=== PATIENT | female | born 1955 | race Caucasian/White ===

== ENCOUNTER 2023-11-23 17:56 | Inpatient (IN) | payer BC, SELFPAY ==
[2023-11-23] VITALS (16 sets, daily range): BP systolic 136–179; BP diastolic 73–104; BMI 19.8
--- NOTE | 2023-11-23 15:06 | ED.GENMED ---
History of Present Illness
General
Chief Complaint: Chest Pain
Source: patient
Exam Limitations: none
Time Seen by Provider: 11/23/23 15:05
Nursing documentation reviewed up to this point in time: agreed with
Travel History
Have you had any contact with someone who has COVID-19?: No
Do you have any symptoms of coronavirus? Fever > 100 degrees, chills, cough, shortness of breath, sore throat, loss of taste or smell, muscle aches, or headache?: No
Past History
Past History
ED Past Medical History: None
ED Past Surgical History: None
Social History
Tobacco: Non-smoker
Alcohol: None
Living: with family
Employment: Employed
Family History
Family History: Hypertension
Course
Orders/Labs/Results
Orders:
Orders
11/23/23 14:59
ECG [Electrocardiogram (*1)] Urgent
Reason for Study: Chest Pain
EKG- Treatment ONCE
11/23/23 15:00
Complete Blood Count/With Diff Urgent
Comprehensive Metabolic Panel Urgent
Troponin I Urgent
*EKG
EKG Intrepretation Date: 11/23/23
Interpretation: abnormal
Rate: tachycardiac
Rhythm: sinus
Neptune: normal axis
Interval: normal interval
QRS Pattern: normal QRS
Ischemia: no ischemia
ED Attending Note
-
Portions of this chart may have been created with voice recognition software.� Occasional wrong word or��sound alike� substitutions may have occurred due to the inherent limitations of voice recognition software.
Discharge Plan
Departure
Prescriptions:
No Action
clindamycin HCl 300 MG capsule
300 mg PO QID Qty: 28 0RF
oxycodone-acetaminophen [Endocet] 1 EACH tablet
1 ea PO QIDPRN PRN (Reason: pain) Qty: 13 0RF
Discharge Date and Time
Print Language: MEXICAN
[2023-11-23] MEDS: LOW STRENGTH ASPIRIN 324 MG PO (15:15)
[2023-11-23] MEDS: NITROSTAT (SUBLINGUAL) 0.400000000000000022 MG SL ×2 (15:16→15:21)
[2023-11-23] MEDS: ZOFRAN 4 MG IV (15:22)
--- NOTE | 2023-11-23 15:25 | ED.GENMED ---
History of Present Illness
General
Chief Complaint: Chest Pain
Source: patient
Exam Limitations: none
Time Seen by Provider: 11/23/23 15:05
Nursing documentation reviewed up to this point in time: agreed with
Travel History
Have you had any contact with someone who has COVID-19?: No
Do you have any symptoms of coronavirus? Fever > 100 degrees, chills, cough, shortness of breath, sore throat, loss of taste or smell, muscle aches, or headache?: No
History of Present Illness
History of Present Illness:
Patient without any significant past medical history, presents to ED secondary to intermittent chest pain over the past 2 weeks. Chest pain described as gas-like sensation with radiation to shoulder. Denies shortness of breath. Denies dizziness.
Denies nausea or vomiting. Denies diaphoresis. Patient states that her symptoms have been intermittent, since the passing of her family member. Denies vomiting or diarrhea. Denies fever or chills. Denies coughing. No recent travel. Denies
back pain. Denies family history of heart disease. Patient is a daily smoker however. Patient states that she has not seen any physician in some time.
Past History
Past History
ED Past Medical History: None
ED Past Surgical History: None
Social History
Tobacco: Non-smoker
Alcohol: None
Living: with family
Employment: Employed
Family History
Family History: Hypertension
Review of Systems
Review of Systems
Allergies reviewed?: Yes
All Other Systems: ROS reviewed and negative except as documented in HPI and ROS
Constitutional: Reports no symptoms
EENT: Reports no symptoms
Respiratory: Reports no symptoms; Denies trouble breathing
Cardiac: Reports chest pain
ABD/GI: Reports nausea
: Reports no symptoms
Musculoskeletal: Reports no symptoms
Skin: Reports no symptoms
Neurological: Reports no symptoms
Phy Exam
Physical Exam
Physical Exam:
Physical Exam
General: mild distress, not acutely ill. afebrile
Head: nc/at. eomi
Neck: supple. no meningeal signs.
Heart: tachycardic, no murmur. equal radial pulses.
Lungs: no acute respiratory distress. clear bilaterally
Abdomen: normal bowel sounds. not tender.
Neuro: alert and oriented. no focal neurological deficits
Skin: no rash
Psychiatric: well kept. interactive and cooperative
Extremities: no edema. no calf tenderness.
Scores
Heart Score for Chest Pain Patients
STEMI patient?: No
History: Moderately Suspicious
ECG: Normal
Age: >/= 65 years
Risk Factors: 1 or 2 Risk Factors
Troponin: </= Normal Limit
Heart Score for Chest Pain Patients: 4
Heart Score Risk: 20.3% MACE over next 6 weeks
Course
Orders/Labs/Results
Orders:
Orders
11/23/23 14:59
ECG [Electrocardiogram (*1)] Urgent
Reason for Study: Chest Pain
EKG- Treatment ONCE
11/23/23 Dinner
1800 calorie (15 carb) Diabetic
At Your Request: Full Participation
Does patient need a safe tray?: No
11/23/23 15:14
Aspirin Chewable [Low Strength Aspirin] 324 mg PO NOW STA
11/23/23 15:16
Nitroglycerin Sublingual [Nitrostat (Sublingual)] 0.4 mg SL NOW STA
11/23/23 15:18
Ondansetron Injectable [Zofran] 4 mg .ROUTE .STK-MED ONE
CR Chest Portable - 1 View Urgent
Comment:
Reason For Exam: chest pain
Reason Study Needs to be Portable: Patient Unstable
11/23/23 15:19
Echo 2D MMode Color/Doppler Stat
Reason for Study: CP
11/23/23 15:20
Nitroglycerin Sublingual [Nitrostat (Sublingual)] 0.4 mg SL NOW STA
11/23/23 15:21
Ondansetron Injectable [Zofran] 4 mg IV NOW STA
11/23/23 15:23
Complete Blood Count/With Diff Urgent
Comprehensive Metabolic Panel Urgent
Glycohemoglobin (HgbA1c) Urgent
Magnesium Urgent
TSH Urgent
Troponin I Urgent
11/23/23 15:33
PT/INR [Prothrombin Time] Urgent
PTT Stat
11/23/23 15:45
Nitroglycerin 100 mg/250 ml [Nitroglycerin Premix] 100 mg in 250 ml IV PER PROTOCOL
Initial dose in mcg/min, then titrate:: 5
Titrate to keep:: Chest Pain Free
Titrate by mcg/min:: 5 mcg/min, may increase by 10 mcg/min if dose > 20 mcg/min
Frequency of titrations (minutes):: every 3-5 minutes
Maximum dose in mcg/min:: 200
Begin to taper infusion when:: Remained at goal for 2hrs
Taper by mcg/min:: 5 mcg/min
Frequency of taper (minutes) if patient maintains goal:: 30
Taper to off?: Yes
If infusion off & no longer maintaining goal:: Contact Provider
11/23/23 15:46
Metoprolol [Lopressor] 5 mg IV NOW STA
11/23/23 15:47
Heparin 3,100 units IV NOW STA
11/23/23 16:01
Add On- LAB Urgent
Tests Added?: Hemoglobin A1C
11/23/23 16:37
Acetaminophen [Tylenol] 650 mg PO Q4HPRN PRN
Activity As Directed
Activity Level: Out of Bed- Ad [place]
Activity Frequency: Ad [place]
District Attorney Procedure As Directed
Cardiac Cath Procedure: cardiac catheterization
Notify MD As Directed
Notify physician if: immediately for chest pain or bleeding from access site(s)
Radial Artery Hemostasis Method As Directed
Instructions:: 3 mL out at 1 hour post placement of band
3 mL out at 1 1/2 hours post placement of band
3 mL out at 2 hours post placement of band
Off at 2 1/2 hours post placement of band
If any oozing or hemotoma occurs:: re-inflate band and call provider
Site Checks As Directed
Check access site for bleeding/hematoma: Yes
Comment: on arrival, Q15min x4, Q30min x2, Q1 hr x2, Q2 hr x2, Q4 hr or per
protocol
Vascular Checks As Directed
Location: distal to access site - pulse check
Frequency: Other
Comment: on arrival, Q15min x4, Q30min x2, Q1 hr x2, Q2 hr x2, Q4 hr or per protocol
Vital Signs As Directed
Frequency: Other
Additional Instructions:: on arrival, Q15min x4, Q30min x2, Q1 hr x2, Q2 hr x2, then Q4 hr or per unit
protocol
11/23/23 16:39
Cardiothoracic Surgery Consult Routine
Consulting Provider: Connor Alarcon
Was physician already notified: Yes
Reason for Consult: CABG eval
11/23/23 16:43
DIETARY CONSULT Routine
Reason for Consult: newly diabetic/heart healthy
Diabetes Education Consult Routine
Reason for Consult: Other
Newly Diagnosed?: Yes
11/23/23 16:45
0.9% Sodium Chloride 1000 ml [Nss] 1,000 ml IV PER PROTOCOL
Infusion rate in mL/kg/hr:: 1.5
Infusion rate in mL/hr:: 78
Duration of infusion (hours):: 3
Heparin Protocol- PTT Orders As Directed
PTT per Heparin protocol: -Obtain CBC and baseline PTT - if not already collected.
-Obtain PTT 6 hours from start of infusion. Then, every 6 hours until 2 consecutive
PTT's are therapeutic. Then, PTT Daily.
-With each rate change, obtain PTT every 6 hours until 2 consecutive PTT's are
therapeutic. Then, PTT Daily.
Notify MD As Directed
Notify physician if: PTT is greater than or equal to 200.
11/23/23 17:00
Nicotine [Nicoderm Transdermal] 21 mg TRANSDERM DAILY
11/23/23 17:11
Admit/Transfer Patient As Directed
Co-Sign Provider:
Level of Care: Inpatient admission
Assign to:: IVU
Physician / Group: isidra
Diagnosis: STEMI
Reason for Hospitalization: STEMI
Expected length of stay greater than two midnights?: Yes
ELOS- Estimated Length of Stay in days: 2
I certify the patient meets the requirements for IP care: Yes
Code Status As Directed
Resuscitation Status: Full Code
11/23/23 17:26
Magnesium Oxide 500 mg PO NOW STA
11/23/23 18:00
Atorvastatin [Lipitor] 40 mg PO QPM
Atorvastatin [Lipitor] 40 mg PO QPM
Atorvastatin [Lipitor] 80 mg PO QPM
11/23/23 18:41
Dextrose 50%-Water [Dextrose 50% Syringe] 12.5 grams IV [id number] PRN
Glucagon [GlucaGen] 1 mg IM PRN PRN
11/23/23 18:41
Activity As Directed
Activity Level: As Tolerated
Bedside Glucose Monitoring As Directed
Frequency: AC&HS
Additional Instructions:: Change to q6h if pt on TPN, tube feeding or not eating
Vital Signs As Directed
Frequency: Per unit guidelines
11/23/23 20:00
Heparin 60620 Units/250 ml 25,000 units in 250 ml IV PER PROTOCOL
Weight to be used for heparin protocol in kilograms (kg):: 52.3
Protocol:: Cardiac Tx/Acute Coronary
PTT Goal Range to be used:: PTT 73 to 111 seconds
Order type:: Initial
INITIAL Infusion Dose (UNITS/KG/hr) & then follow protocol:: 12 units/kg/hr
Infusion Dose in UNITS/hr & then follow protocol (UNITS/hr):: 650
INFUSION RATE in mL/hr & then follow protocol (mL/hr):: 6.5
PTT less than or equal to 64 seconds:: Increase rate by 200 units/hr (+ 2 mL/hr)
PTT 64.1 to 72.9 seconds:: Increase rate by 100 units/hr (+ 1 mL/hr)
PTT 73 to 111 seconds:: Target Range. No change in rate.
PTT 111.1 to 130.9 seconds:: Decrease rate by 100 units/hr (- 1 mL/hr)
PTT 131 to 199.9 seconds:: HOLD for 1 hr. Then decrease rate by 200 units/hr (- 2 mL/hr)
PTT greater than or equal to 200 seconds:: HOLD for 2 hrs & Notify Provider. Then decrease by 200 units/hr (-
2 mL/hr)
Lab follow-up:: Each change, PTT q6h until 2 consecutive are therapeutic. Then PTT
daily.
11/23/23 20:58
Troponin I Q6H
11/24/23 03:00
Troponin I Q6H
11/24/23 06:00
Electrocardiogram (*1) IN AM
Reason for Study: CAD
Comment: CBC
Basic Metabolic Panel IN AM
Cardiovascular Evaluation IN AM
Complete Blood Count/No Diff IN AM
Glycohemoglobin (HgbA1c) IN AM
Magnesium IN AM
11/24/23 07:30
Insulin Aspart Corrective Low [Novolog Flexpen-Low Resistance] See Protocol SC AC
11/24/23 08:00
Aspirin Low Dose EC [Aspir Low (Enteric Coated)] 81 mg PO DAILY
Aspirin Low Dose EC [Aspir Low (Enteric Coated)] 81 mg PO DAILY
11/24/23 09:00
Troponin I Q6H
11/25/23 06:00
Complete Blood Count/No Diff Q2D
Comment: Notify MD if platelet count is <130,000 or decreases by 50% from baseline
11/27/23 06:00
Complete Blood Count/No Diff Q2D
Comment: Notify MD if platelet count is <130,000 or decreases by 50% from baseline
11/29/23 06:00
Complete Blood Count/No Diff Q2D
Comment: Notify MD if platelet count is <130,000 or decreases by 50% from baseline
12/01/23 06:00
Complete Blood Count/No Diff Q2D
Comment: Notify MD if platelet count is <130,000 or decreases by 50% from baseline
12/03/23 06:00
Complete Blood Count/No Diff Q2D
Comment: Notify MD if platelet count is <130,000 or decreases by 50% from baseline
12/05/23 06:00
Complete Blood Count/No Diff Q2D
Comment: Notify MD if platelet count is <130,000 or decreases by 50% from baseline
12/07/23 06:00
Complete Blood Count/No Diff Q2D
Comment: Notify MD if platelet count is <130,000 or decreases by 50% from baseline
12/09/23 06:00
Complete Blood Count/No Diff Q2D
Comment: Notify MD if platelet count is <130,000 or decreases by 50% from baseline
Abnormal Lab Results
11/23/23 11/23/23 11/23/23
15:23 16:26 16:35
WBC 14.9 H 10^3/uL
(4.8-10.8)
Plt Count 620 H 10^3/uL
(130-400)
Abs Immat Gran (auto) 0.1 H 10^3/uL
(0-0.05)
Absolute Neuts (auto) 12.1 H 10^3/uL
(1.4-6.5)
Absolute Monos (auto) 1.0 H 10^3/uL
(0.1-0.6)
Immature Gran % 0.6 H %
(0-0.5)
Neutrophils % 81.0 H %
(42.2-75.2)
Lymphocytes % 10.9 L %
(20.5-51.1)
Sodium 128 L mmol/L
(135-145)
Chloride 94 L mmol/L
(98-107)
Glucose 315 H mg/dl
(70-99)
Calcium 10.4 H mg/dl
(8.4-10.2)
Magnesium 1.4 L mg/dl
(1.6-2.3)
TSH 0.46 L uIU/ml
(0.47-4.68)
POC ACT Low Range 165 H Seconds 219 H Seconds
(116-155) (116-155)
11/23/23 15:23
11/23/23 15:23
Vital Signs
Initial and Last Documented VS:
Initial Vital Signs
BP
168/92
11/23/23 15:17
Last Documented Vital Signs
Temp Pulse Resp BP Pulse Ox
98.2 F 81 20 152/86 96
11/23/23 22:17 11/23/23 20:00 11/23/23 22:17 11/23/23 20:00 11/23/23 22:17
MDM/Problems Addressed
MDM/Problems Addressed:
Initial EKG, with nonspecific ST changes, discussed with cytology laboratory manager attending () - will order STAT Echo along with cardiology () evaluation at bedside.
Aspirin given, along with NTG
CP improved with NTG SL. Will start Nitroglycerin gtt.
Bedside echo with wall motion abnormalities.
Pt evaluated by (cardiology) who spoke with animal damage control agent attending () - will proceed to GEOSPATIAL ENGINEER. Medications given, per protocol, excluding Brillinta which will be deferred to GEOSPATIAL ENGINEER team.
Critical care statement: A total of 40 minutes of critical care time was provided for this patient. This includes management of unstable vital signs, evaluation of the patient at bedside, reviewing the patient's pertinent medical records, discussion
with consultants, review of old EKGs and review of pertinent medical records. This time with separate from time utilized to perform the aforementioned documented procedures
*Critical Care Note
Total Time (30-74mins, 75-104mins- exclusive of procedures): 40 min
ED Attending Note
-
Portions of this chart may have been created with voice recognition software.� Occasional wrong word or��sound alike� substitutions may have occurred due to the inherent limitations of voice recognition software.
Discharge Plan
Departure
Patient Disposition: GEOSPATIAL ENGINEER
Date of Disposition: 11/23/23
Time of Disposition: 15:48
Admit to: oven laborer
Presentation/result/management discussed w/ accepting MD/DO: Hospitalist
Discharge Problem:
Chest pain, Abnormal ECG
Interventions
Interventions:
*Risk Screen - Suicide Last Done: 11/23/23 15:27
*General Assessment Last Done: 11/23/23 15:27
*Neglect/Abuse Screening Last Done: 11/23/23 16:15
ED- Fall Risk Assessment Last Done: 11/23/23 15:27
*Nursing Disposition Last Done: 11/23/23 16:29
ED- Cardiac Assessment Last Done: 11/23/23 15:27
Discharge Date and Time
Discharge Date/Time: 11/23/23 16:25
--- NOTE | 2023-11-23 15:29 | CON.CAR ---
Addendum entered and electronically signed by Victoriano Cotto MD 11/23/23 17:10:
I saw and examined the patient.
The TELEPHONE ANSWERING SERVICE OPERATOR's note was reviewed and I agree with the note.
Comment: 68-year-old female who presented to the emergency department the chief complaint of chest pain. ECG and TTE findings were concerning for acute infarction. She was taken urgently for coronary angiography and multi-vessel CAD was seen. CTS
has been consulted.
- aspirin, statin, TTE done, heparin for 48 hrs
- lipid profile tomorrow AM fasting
- blood pressure control as needed
- CTS consult
Original Note:
Consultation
Consultation Request
Date/Time Consultation Requested: 11/23/2023 15:15
Date/Time Consultation Performed: 11/23/23 15:15
Requesting Provider: Dr. Johnston
Performing Provider: MARIJA Villanueva for Dr. Cotto
Reason for Consultation: Abnormal EKG, chest pain
Medical History
-
Chief Complaint: Chest pain
History of Present Illness:
Pamela De La Vega is a 68-year-old female who presented to the emergency department the chief complaint of chest pain. She states her chest pain started approximately 2 weeks ago when her father . But at that time it was mild and intermittent and
she believed to be related to stress. Today, she had sudden acute onset of chest pain at approximately 2 PM. She has received no relief. It feels like a pressure in her midsternal anterior chest and radiates into her shoulders. She endorses
associated nausea and vomiting prior to arrival. She briefly had an episode of diaphoresis. She appears flushed on exam. EKG with inferior STEMI. She was given ASA 324 mg, heparin bolus, intravenous Lopressor, and intravenous nitroglycerin. At
its worst it was 10/10 in severity prior to arrival. After nitroglycerin chest pain now 4/10 in severity. Stat TTE being performed.
Mrs. Lyman does not regularly seek medical care. She does not recall the last time she saw her PCP. She denies all significant past medical history other than smoking.
Her is at the bedside and he has been updated on the plan of care.
Past Medical History
Past Medical History: None
Social History
Tobacco: Smoker
Alcohol: None
Personal:
Living: With Family
Family History
Family History: Reviewed & Not Pertinent (Denies early CAD & SCD.)
Allergies / Home Medications
Allergy/AdvReac Type Severity Reaction Status Date / Time
Sulfa (Sulfonamide Allergy Unknown Verified 11/23/23 15:14
Antibiotics)
�Medication �Instructions �Recorded �Confirmed �Type
clindamycin HCl 300 mg capsule 300 mg PO QID ##28 05/15/13 Rx
oxycodone-acetaminophen 5 mg-325 1 ea PO QIDPRN PRN pain #13 tabs 05/15/13 Rx
mg tablet (Endocet)
Review of Systems
-
History Source: Patient
All other systems: Negative unless noted
Cardiac: Chest Pain and Diaphoresis
Abdomen/GI: Nausea and Vomiting
Physical Exam
Vital Signs
Temp Pulse Resp BP Pulse Ox
98.4 F 110 23 179/104 94
11/23/23 15:18 11/23/23 15:19 11/23/23 15:19 11/23/23 15:18 11/23/23 15:19
Physical Exam
General: Well Developed, Well Nourished and Comfortable
HEENT: Normocephalic, Anicteric and Moist Mucous Membranes
Cardiac: S1/S2 and Regular Rhythm
Breast: Deferred by me
GI: Soft, Non Tender, Non Distended and Normal Bowel Sounds
Rectal: Deferred by Provider
Genito-urinary: No Costovertebral Tender
Musculoskeletal: No Clubbing, No Cyanosis and No Edema
Skin: Warm, Dry and Other (flushed)
Neuro: AO x 3
Psych: Calm
Impression / Plan
-
STEMI
-EKG with inferior STEMI
-ASA 325mg x 1 now then 81mg daily
-Heparin bolus
-Lopressor 5mg IV x 1 now, start nitro gtt
-STAT TTE
-Fasting lipid panel in am, start atorvastatin 40mg QPM
-Hgba1c in am
Hyponatremia
Hyperglycemia, glucose 315, Hgba1c in am
Leukocytosis, perhaps reactive, per primary
Current smoker, full cessation recommended
Data Reviewed
-
EKG: Report Reviewed by me (Sinus tachycardia, significant inferior ST abnormality [STEMI], rate 114)
Labs: Labs Reviewed by me
Old Records: Reviewed
[2023-11-23 15:44] LABS: % Basophils 0.7 % (0-2); % Eosinophils 0.2 % (0-6); % Immature Granulocytes 0.6 % (0-0.5); % Lymphocytes 10.9 % (20.5-51.1); % Monocytes 6.6 % (1.7-9.3); Absolute Basophils 0.1 10^3/uL (0-0.2); Absolute Immature Granulocytes 0.1 10^3/uL (0-0.05); Absolute Lymphocytes 1.6 10^3/uL (1.2-3.4); Absolute Neutrophils 12.1 10^3/uL (1.4-6.5); Hematocrit 37.8 % (37.0-47.0); Hemoglobin 12.6 g/dL (12.0-16.0); Mean Corp Hgb Conc. 33.3 g/dL (33.0-37.0); Mean Corpuscular Hgb 28.9 pg (27.0-31.0); Mean Corpuscular Volume 86.7 fL (81.0-99.0); Nucleated Red Blood Cells % 0 %; Red Blood Cell Count 4.36 10^6/uL (4.20-5.40); Red Cell Dist. Width 12.6 % (11.5-14.5); White Blood Cell Count 14.9 10^3/uL (4.8-10.8)
[2023-11-23] MEDS: LOPRESSOR 5 MG IV (15:49)
[2023-11-23] MEDS: HEPARIN 3100 UNITS IV (15:52)
[2023-11-23 15:56] LABS: ALT (SGPT) < 10 U/L (0-35); AST (SGOT) 14 U/L (14-36); Albumin 4.6 g/dl (3.5-5.0); Alkaline Phosphatase 107 U/L (38-126); Blood Urea Nitrogen 8 mg/dl (7-17); Calcium 10.4 mg/dl (8.4-10.2); Carbon Dioxide 24 mmol/L (22-30); Chloride 94 mmol/L (98-107); Estimated Creatinine Clearance 73 ml/min; Glucose 315 mg/dl (70-99); Magnesium 1.4 mg/dl (1.6-2.3); Potassium 4.4 mmol/L (3.5-5.1); Sodium 128 mmol/L (135-145); Total Bilirubin 0.3 mg/dl (0.2-1.3); Total Protein 7.4 g/dl (6.3-8.2); eGFR > 60.00
[2023-11-23 16:03] LABS: INR 1.06; PT 13.6 Sec (11.4-14.6)
[2023-11-23 16:04] LABS: APTT 33.4 Sec (23.4-35.0)
[2023-11-23 16:06] LABS: Troponin I 0.033 ng/ml
[2023-11-23 16:10] LABS: Mean Platelet Volume 9.6 fL (7.4-10.4); Platelet Count 620 10^3/uL (130-400)
[2023-11-23 16:26] LABS: TSH 0.46 uIU/ml (0.47-4.68)
[2023-11-23 16:30] LABS: ACT-LR - POC 165 Seconds (116-155)
[2023-11-23 16:42] LABS: ACT-LR - POC 219 Seconds (116-155)
--- NOTE | 2023-11-23 17:03 | ITS.CL.CATH ---
Licensed Physical Therapy Assistant - Catheterization
Cardiac Catheterization
Procedure Report:
LEFT HEART CATHETERIZATION
Date of Procedure: November 23, 2023
Referring: Dr. Victoriano Cotto
PROCEDURES:
1. Left heart catheterization with coronary and single-plane left ventriculography
INDICATION: This is a 68-year-old female who rarely seeks medical attention. She presented to [facility] with a 2-week history of substernal chest pressure and an electrocardiogram concerning for inferior infarct/ischemia. A stat
echocardiogram in the emergency room was notable for anterolateral hypokinesis. Her troponin returned at 0.033 ng/mL in spite of symptoms for 2 weeks. However, given the ECG and echocardiographic findings she is referred for coronary angiography
ACCESS: Right radial artery, 6 [place] sheath
HEMODYNAMICS : (mmHg)
AO (s/d) : 133/72
LV (s/d) : 128/8
LVEDP : 18
CORONARY FINDINGS
DOMINANCE: Right
LEFT MAIN: Minor distal tapering
LEFT ANTERIOR DESCENDING: The LAD arises normally from the left main and runs in the anterior interventricular groove. The LAD is moderately to heavily calcified. The proximal LAD has a 40% stenosis. The mid LAD just before the first diagonal
branch has a 90% stenosis with a 50% stenosis beyond the first diagonal branch. The distal LAD has a 50% stenosis.
CIRCUMFLEX: The circumflex is a moderate caliber nondominant vessel. OM1 arises proximally from the circumflex and is a moderate caliber vessel with a 70% mid stenosis. The OM1 bifurcates distally. OM 2 is small and has a 80% distal stenosis just
before the vessel bifurcates to 2 small daughter branches.
RIGHT CORONARY ARTERY: Diffuse proximal and mid atherosclerotic disease. The distal RCA is occluded in the distal vessel is noted to fill via well-developed [id number] collaterals
VENTRICULOGRAPHY: Left ventriculography was performed in an WILSON projection. The digital single-plane left ventricular ejection fraction is estimated at 45-50% with mild anterolateral hypokinesis
RADIATION SUMMARY: Fluoro Time (min): 3.2, Dose (mGy): 213, DAP (Gy.cm2) : 19.3
Closure Device: TR band
CONCLUSIONS
1. Multivessel coronary disease
2. Probable newly diagnosed diabetes
3. Low normal to mildly reduced LV systolic function
RECOMMENDATIONS
1. Will consult CT surgery to consider CABG
2. High intensity statin. Continue aspirin. IV heparin for 24-48 hours
3. Trend serial troponin levels
Copy to: Dr. Victoriano Cotto
[2023-11-23] MEDS: NSS 234 IV (17:17)
--- NOTE | 2023-11-23 17:19 | HPS.HSE ---
Addendum entered and electronically signed by Marianela Walsh MD 11/23/23 17:26:
Hypomagensemia
-Replete magnesium
Original Note:
Family Physician
-
Family Physician: NO INTERVIEW UNKNOWN
Chief Complaint
-
chest pain
History of Present Illness
68-year-old female with no known medical problems presenting with intermittent chest pain over the past 2 weeks. She states that 2 weeks ago her family member which affected her greatly. Since that time she has been having intermittent
chest pain described as gas-like sensations with radiation to shoulders and nausea/vomiting, diarrhea and abdominal cramping worsened with eating. Denies any sweats or shortness of breath. Denies any fevers or chills or cough. Denies any back
pain. Denies any lower extreme edema.
Patient smokes half a pack of cigarettes a day.
She denies any family history of heart disease.
Medical History
Past Medical History
Past Medical History: Reports None
Past Surgical History: Reports None
Social History
Tobacco: Smoker
Alcohol: None
Drug: None
Family History
Family History: Not pertinent
Allergies / Home Medications
Allergies reflects when Allergies were last updated in [facility].
Home Medications with original date entered in [facility]
Allergy/Medication List:
Allergies
Allergy/AdvReac Type Severity Reaction Status Date / Time
Sulfa (Sulfonamide Allergy Unknown Verified 11/23/23 15:14
Antibiotics)
Home Medications
clindamycin HCl 300 mg capsule 300 mg PO QID ##28 05/15/13
oxycodone-acetaminophen 5 mg-325 mg tablet (Endocet) 1 ea PO QIDPRN PRN pain #13 tabs 05/15/13
Review of Systems
-
History Source: Patient
A 12 point ROS was completed and negative except as noted: Yes
Constitutional: Reports No Symptoms
EENT: Reports No Symptoms
Respiratory: Reports No Symptoms
Cardiac: Reports See HPI
Abdomen/GI: Reports See HPI
: Reports No Symptoms
Musculoskeletal: Reports No Symptoms
Skin: Reports No Symptoms
Neurological: Reports No Symptoms
Endocrine: Reports No Symptoms
Hematologic/Lymphatic: Reports No Symptoms
Psych: Reports No Symptoms
Physical Exam
Vital Signs
Vital Signs
Temp Pulse Resp BP Pulse Ox
98.4 F 96 16 152/78 94
11/23/23 15:18 11/23/23 16:02 11/23/23 16:02 11/23/23 16:03 11/23/23 16:00
Physical Exam
General: Well Developed, Well Nourished and No Apparent Distress
HEENT: NormoCephalic, Moist mucous membranes and Atraumatic
Respiratory: Clear
Cardiac: S1/S2 and Regular Rhythm; No Murmur or Rub
GI: Soft, Non Tender, Non Distended and Normal Bowel Sounds; No Organomegaly
Rectal: Deferred by Provider
Musculoskeletal: No Clubbing, No Cyanosis and No Edema
Skin: No Rash
Neuro: Nonfocal/grossly intact
Laboratory Results
-
11/23/23 15:23
11/23/23 15:23
Laboratory Results
PT 13.6 Sec (11.4-14.6) 11/23/23 15:33
INR 1.06 11/23/23 15:33
APTT 33.4 Sec (23.4-35.0) 11/23/23 15:33
Total Bilirubin 0.3 mg/dl (0.2-1.3) 11/23/23 15:23
AST 14 U/L (14-36) 11/23/23 15:23
ALT < 10 U/L (0-35) 11/23/23 15:23
Alkaline Phosphatase 107 U/L (38-126) 11/23/23 15:23
Troponin I 0.033 ng/ml 11/23/23 15:23
Data Reviewed
-
Lab Data: Labs Reviewed by me
Old Records: Reviewed
Impression/Plan
-
IMPRESSION:
PLAN:
# Inferior STEMI
# Multivessel coronary disease
# Ischemic cardiomyopathy
-Troponin 0.033
-EKG shows sinus tachycardia, ST elevations in leads II, 3, aVF
-Chest x-ray unremarkable
-Echo shows EF of 35 to 40%, hypokinesis
-Heparin drip
-Nitroglycerin drip
-Patient underwent catheterization revealing multivessel coronary artery disease
-Aspirin, statin started
-CT surgery consult
# Hyperglycemia likely undiagnosed diabetes
-Check A1c
-Insulin sliding scale
# Leukocytosis likely reactive
-Continue to monitor
# Pseudohyponatremia secondary to hyperglycemia
-Patient receiving fluids
Active smoker
-Nicotine patch
Full code
DVT prophylaxis�heparin
Diabetic diet
--- NOTE | 2023-11-23 17:25 | CONSULT.CT ---
Consultation
-
Date/Time Consultation Requested: 11/23/23 1800
Date/Time Consultation Performed: 11/23/23 1825
Requesting Provider: Sina DUTTON
Performing Provider: Bradley DUTTON for Dorian BRIONES
Reason for Consultation: CAD
Patient History
Physicians
Family Physician: None
Outpatient Smt Operator: None
Inpatient Smt Operator: None
History of Present Illness
68-year-old female with no known past medical history presented to [facility]'s emergency room with intermittent chest pain for the past 2 weeks. She states that about 2 weeks ago her father . She describes the chest pain as
gas-like sensations that radiate to her shoulders along with nausea/vomiting, diarrhea, and abdominal cramping that is worsened after a meal. Today, she had a sudden acute onset of chest pain around 2 PM did not subside and was associated with
intermittent diaphoresis. EKG in the ER showed an inferior STEMI and patient was started on aspirin, heparin infusion, Lopressor IV, and intravenous nitroglycerin. There was some mild relief with nitroglycerin and cardiology ordered a stat trans
thoracic echocardiogram. TTE was concerning for an acute infarct so the patient was urgently taken to the [facility]. While in the [facility] multi jet vessel disease was found. Therefore, CT surgery was consulted for surgical evaluation.
Of note, patient does not regularly follow doctors and currently her only significant history is that she is a smoker.
Past Medical History
Past Medical History: None
Past Surgical History
Past Surgical History: None
Family History
Father: at Age
Social History
Alcohol: Occasional
Drug: None
Tobacco: Smoker (1PPD)
Personal:
Living: With Spouse
Employment: Retired
Allergies
Allergy/AdvReac Type Severity Reaction Status Date / Time
Sulfa (Sulfonamide Allergy Unknown Verified 11/23/23 15:14
Antibiotics)
Home Medications
�Medication �Instructions �Recorded �Confirmed �Type
clindamycin HCl 300 mg capsule 300 mg PO QID ##28 05/15/13 Rx
oxycodone-acetaminophen 5 mg-325 1 ea PO QIDPRN PRN pain #13 tabs 05/15/13 Rx
mg tablet (Endocet)
Review of Systems
-
History Source: Patient
General: Reports Fatigue
HEENT: Reports No Symptoms
Respiratory: Reports SOB
Cardiac: Reports Chest Pain, Nausea, Vomiting and Diaphoresis
Abdomen/GI: Reports No Symptoms
: Reports No Symptoms
Musculoskeletal: Reports No Symptoms
Skin: Reports No Symptoms
Neurological: Reports No Symptoms
Physical Exam
Vital Signs
Temp 98.4 F 11/23/23 15:18
Temp route: Oral 11/23/23 15:18
Pulse 96 11/23/23 16:02
Resp Rate 16 11/23/23 16:02
Blood pressure 152/78 11/23/23 16:03
Blood pressure extremity used: Right upper arm 11/23/23 15:18
Position: Lying 11/23/23 15:18
MAP (cuff-Darshana Monitor) 100 11/23/23 16:03
SaO2 94 11/23/23 16:00
Oxygen Mode of Delivery Room air 11/23/23 15:18
Acceptable pain level during hospitalization? 0 11/23/23 15:03
Can the patient verbally communicate their pain? Yes 11/23/23 15:18
Actual Weight 52.3 kg 11/23/23 15:12
Body Mass Index (BMI) 19.8 11/23/23 15:12
Labs
11/23/23 15:23
11/23/23 15:23
PT 13.6 Sec (11.4-14.6) 11/23/23 15:33
APTT 33.4 Sec (23.4-35.0) 11/23/23 15:33
Troponin I 0.033 ng/ml 11/23/23 15:23
Exam
General: Well Developed and Well Nourished
HEENT: Normocephalic
Respiratory: Clear
Cardiac: S1/S2 and Regular Rhythm
GI: Soft and Non Tender
Rectal: Deferred by Provider
Skin: Warm and Dry
Neuro: AO x 3
Lymph: No Lymphadenopathy
Psych: Calm
Assessment / Plan
-
68-year-old female with no significant past medical history presented to [facility]'s emergency room with severe chest pain. She was found to have a STEMI and abnormal echocardiogram so patient was taken to the [facility]. During the cath
she was found to have multivessel disease therefore, CT surgery was consulted for surgical evaluation.
#CAD
#Ischemic cardiomyopathy
-Patient's case will be discussed with attending physician. Further details regarding surgical timing will be determined after attending physician's full evaluation.
-Routine preoperative cardiothoracic surgery orders will be initiated.
-STS risk stratification score will be calculated after preoperative testing is complete
-Continue heparin drip and monitor for further episodes of chest pain
-Continue aspirin and statin
-Replete electrolytes as needed
-Cardiology consulted
#Smoker
-Educated on smoking cessation
-Will order PFTs
-Follow chest x-ray
-May need nicotine patch while inpatient
#Hyponatremia
-Continue to monitor
-May need to repeat BMP
#Hyperglycemia
- Blood glucose level 315
- Hemoglobin A1c pending
- Start a cardiac/diabetic diet and sliding scale insulin
[2023-11-23] MEDS: NICODERM TRANSDERMAL 21 MG TRANSDERM (19:07)
[2023-11-23] MEDS: LIPITOR 80 MG PO (19:08)
[2023-11-23] MEDS: MAGNESIUM OXIDE 500 MG PO (19:08)
[2023-11-23] MEDS: HEPARIN 25000 UNITS/250 ML IV (20:06)
--- NOTE | 2023-11-23 20:44 | PTCARENOTE ---
Received patient from [facility] at approx 18:38. Patient AAOx3 and ambulated self in room w/out difficulty. Denies any lightheadedness or dizziness. No complaints of chest pain. Patient does report having a poor appetite and tender abdomen. Denies
any nausea at this time. Tele monitor applied pt SR. TR band removed at approx 19:48 w/out any complications. Dry dressing applied. No hematoma noted at this time. Patient educated on activity restrictions. IV Heparin gtt started and infusing at
6.5ml/hr per order, and next ptt due at 02:10. CAD educational packet provided. Aware of POC, and oriented to room. Call gibbons in reach.
[2023-11-23 21:42] LABS: Glucose - Point of Care 228 mg/dl (70-99)
[2023-11-23] MEDS: REGLAN 10 MG IV (21:51)
[2023-11-23] MEDS: MYLICON 80 MG PO (21:51)
--- NOTE | 2023-11-23 21:57 | PTCARENOTE ---
Pt brought down for Xray via WC. While waiting for Xray to be taken pt c/o abdominal bloating, gas, and tenderness. Ed Lourdes CV KELBY made aware and orders obtained. IV Reglan and PO Simethicone ordered and administered--see MAR for further details.
[2023-11-23] MEDS: MAGNESIUM SULFATE 102 GRAMS IV (22:17)
[2023-11-24] MEDS: REGLAN 10 MG IV (01:19)
[2023-11-24] MEDS: XANAX 0.25 MG PO ×2 (01:19→22:59)
--- NOTE | 2023-11-24 01:27 | PTCARENOTE ---
Patient rang call gibbons with a list of complaints. Patient c/o abdominal discomfort. She states 'it's like a ball of fire under my bellybutton'. Patient reports feeling agitated and irritable with not being able to smoke a cigarette right now. Water
and crackers provided. Tapan LAMA made aware, and orders obtained for IV Reglan and 0.25mg of Xanax. Medication administered--see SEP.
[2023-11-24 02:30] VITALS: BP 152/83
[2023-11-24 02:47] LABS: Hematocrit 31.3 % (37.0-47.0); Mean Corp Hgb Conc. 35.1 g/dL (33.0-37.0); Mean Corpuscular Hgb 28.9 pg (27.0-31.0); Mean Corpuscular Volume 82.4 fL (81.0-99.0); Mean Platelet Volume 9.5 fL (7.4-10.4); Platelet Count 538 10^3/uL (130-400); Red Cell Dist. Width 12.7 % (11.5-14.5); White Blood Cell Count 16.3 10^3/uL (4.8-10.8)
[2023-11-24 03:00] LABS: INR 1.11; PT 14.2 Sec (11.4-14.6)
[2023-11-24 03:02] LABS: ALT (SGPT) 10 U/L (0-35); APTT 39.5 Sec (23.4-35.0); AST (SGOT) 60 U/L (14-36); Albumin 3.9 g/dl (3.5-5.0); Alkaline Phosphatase 96 U/L (38-126); Blood Urea Nitrogen 6 mg/dl (7-17); Calcium 9.5 mg/dl (8.4-10.2); Carbon Dioxide 21 mmol/L (22-30); Chloride 98 mmol/L (98-107); Direct Bilirubin 0.3 mg/dl (0.0-0.4); Estimated Creatinine Clearance 74 ml/min; Glucose 266 mg/dl (70-99); HDL Cholesterol 61 mg/dl; LDL Cholesterol, Calculated 79 mg/dl; Magnesium 1.8 mg/dl (1.6-2.3); Potassium 4.1 mmol/L (3.5-5.1); Sodium 128 mmol/L (135-145); Total Bilirubin 0.4 mg/dl (0.2-1.3); Total Cholesterol 168 mg/dl (50-199); Total Protein 6.4 g/dl (6.3-8.2); Triglyceride 143 mg/dl (10-149); Very Low Density Lipoprotein 28 mg/dl (0-30); eGFR > 60.00
[2023-11-24 04:57] LABS: B.E. 0.6 mmol/L; HCO3 24.3 mmol/L (21-28); O2 Saturation % 98.3 % (94-98); PCO2 35 mmHg (32-35); PO2 79 mmHg (83-108); pH 7.45 (7.35-7.45)
[2023-11-24 07:32] VITALS: BP 138/75
[2023-11-24 07:41] LABS: Glucose - Point of Care 227 mg/dl (70-99)
--- NOTE | 2023-11-24 08:02 | W.PN.CD ---
Today's Communication / Plan
-
-Plan for coronary bypass graft on 11/26/2023 on Sunday
Impression / Plan
-
STEMI
-EKG with inferior STEMI
-Emergent cardiac cath on 11/23/2023�Dr. Sánchez�multivessel severe coronary disease
-atorvastatin 80mg QPM
-CT surgery is consulted. Discussed case with Dr. Alarcon -plan for CABG on 11/26/2023
-Heparin IV stopped prior to CABG.
Hyponatremia
Hyperglycemia, glucose 315, Hgba1c in am
Leukocytosis, perhaps reactive, per primary
Current smoker, full cessation recommended
Physical Exam
Vital Signs/Labs
Vital Signs
Temp Pulse Resp BP Pulse Ox
98.3 F 91 16 152/83 97
11/24/23 07:55 11/24/23 07:00 11/24/23 07:55 11/24/23 02:30 11/24/23 07:55
11/23/23 11/24/23 11/25/23
06:59 06:59 06:59
Actual Weight 52.7 kg
11/24/23 02:25
11/24/23 02:25
PT 14.2 Sec (11.4-14.6) 11/24/23 02:25
INR 1.11 11/24/23 02:25
APTT 39.5 Sec (23.4-35.0) H 11/24/23 02:25
APTT Cancelled 11/24/23 02:25
Magnesium 1.8 mg/dl (1.6-2.3) 11/24/23 02:25
Triglycerides 143 mg/dl (10-149) 11/24/23 02:25
LDL Cholesterol, Calc 79 mg/dl 11/24/23 02:25
VLDL Cholesterol, Calc 28 mg/dl (0-30) 11/24/23 02:25
HDL Cholesterol 61 mg/dl 11/24/23 02:25
TSH 0.46 uIU/ml (0.47-4.68) L 11/23/23 15:23
LAB Results
11/23/23 11/23/23 11/24/23
15:23 20:58 02:25
Troponin I 0.033 9.560 H* D 9.660 H*
Physical Exam
Constitutional: No acute distress and Comfortable
EENT: Anicteric and Moist mucous membranes
Cardiovascular: Rhythm & rate is regular, Pedal edema is absent and JVD present
Respiratory: Respiratory effort normal, Lungs clear to auscul. and Wheeze Absent
GI: Soft, Non tender and Normal bowel sounds
Neuro/Psych: Alert, Oriented and AO x 3
Data Reviewed
-
Date of Service: November 24, 2023
Medical Decision Making: Reviewed Test Results, Independent Historian Assessment and Test Interpretation
EKG: Tracing Personally Visualized and interpreted
Echo: Report Reviewed by me
Labs: Labs Reviewed by me
Old Records: Reviewed
[2023-11-24] MEDS: ASPIR LOW (ENTERIC COATED) 81 MG PO (08:17)
[2023-11-24] MEDS: NICODERM TRANSDERMAL 21 MG TRANSDERM (08:17)
[2023-11-24] MEDS: NOVOLOG FLEXPEN-LOW RESISTANCE 2 UNITS SC ×3 (08:54→17:45)
[2023-11-24 09:27] LABS: APTT 46.8 Sec (23.4-35.0)
[2023-11-24 09:31] LABS: Glycohemoglobin (HgbA1c) 11.7 % (4.0-5.6)
--- NOTE | 2023-11-24 09:51 | W.PN.UPDATE ---
Update Note
Progress Note Update
Pt seen and examined
Cath reviewed
present for discussion
Pleasant 68 y/o admitted with cp, ?stemi
Cath with 3vcad, mod lv dysfunction, Ef 35
New dx of DM
I agree cabg is indicated
Long discussion regarding findings and rec for cabg
Risks, complications, benefits reviewed
All questions answered
Pt and agreeable to proceed
Plan Cabg on Sunday, afternoon
[2023-11-24 11:40] LABS: Glucose - Point of Care 215 mg/dl (70-99)
[2023-11-24 12:09] VITALS: BP 138/78
--- NOTE | 2023-11-24 12:43 | W.PN.HOSP.TC ---
Today's Communication/Plan
-
start basal-bolus regimen
CABG sunday
preop testing per CTS
Assessment / Plan
Assessment / Plan
# Inferior STEMI
# Multivessel coronary disease
# Ischemic cardiomyopathy
-Troponin peaked to 10
-EKG shows sinus tachycardia, ST elevations in leads II, 3, aVF
-Chest x-ray unremarkable
-Echo shows EF of 35 to 40%, hypokinesis
-Heparin drip
-Nitroglycerin drip per cards/CTS
-Patient underwent catheterization revealing multivessel coronary artery disease
-Aspirin, statin started
-Pre-op studies ordered per CTS
-CT surgery consult-plan for OR sunday
# DM2 uncontrolled
-Check A1c at 11.7
-Start basal bolus regimen as POC elevated
-Start glargine 7u and novolg 3u bolus
-ISS and adjust insulin as needed
# Leukocytosis likely reactive
-Continue to monitor
# Pseudohyponatremia secondary to hyperglycemia
-Patient receiving fluids
#Active smoker
-Nicotine patch
Full code
DVT prophylaxis�heparin
Diabetic diet
d/w with spouse at bedside in details
Anticipated Discharge: > 48 hours
Subjective/Interval History
-
Date of Service: November 24, 2023
States of severe agitation at night as she is unable to go outside to smoke cigarettes
No chest pain
Objective Data
-
Labs:
Laboratory Results
11/24/23 11/24/23 11/24/23
02:25 02:25 04:49
WBC 16.3 H
Hgb 11.0 L
Hct 31.3 L
Plt Count 538 H
PT 14.2
INR 1.11
APTT 39.5 H Cancelled
HCO3 24.3
Sodium 128 L
Potassium 4.1
Chloride 98
Carbon Dioxide 21 L
BUN 6 L
Creatinine 0.4 L
Glucose 266 H
Calcium 9.5
Total Bilirubin 0.4
AST 60 H
ALT 10
Alkaline Phosphatase 96
11/24/23 11/24/23
09:01 16:00
WBC
Hgb
Hct
Plt Count
PT
INR
APTT 46.8 H Pending
HCO3
Sodium
Potassium
Chloride
Carbon Dioxide
BUN
Creatinine
Glucose
Calcium
Total Bilirubin
AST
ALT
Alkaline Phosphatase
Vital Signs:
Vital Signs
Temp Pulse Resp BP Pulse Ox
98.3 F 87 16 138/75 97
11/24/23 07:55 11/24/23 12:00 11/24/23 07:55 11/24/23 07:32 11/24/23 07:55
I&O
11/23/23 11/24/23 11/25/23
06:59 06:59 06:59
Intake Total 582 / 582
Balance 582 / 582
Physical Exam
-
General: Appears Chronically Ill and Cachectic
HEENT: Normocephalic, Atraumatic and Moist Mucous Membranes
Respiratory: Clear to Auscultation
Cardiac: Regular Rhythm and S1/S2; Negative Murmur, Rub or Gallop
GI: Soft, Nontender, Nondistended and Normal Bowel Sounds; Negative Organomegaly
Rectal: Deferred by Provider
Musculoskeletal: No Clubbing, No Cyanosis and No Edema
Skin: Negative Rash
Neuro: Awake, No Motor Deficits and Nonfocal/Grossly Intact
Psych: Calm
Data Reviewed
-
Total Time Spent with Patient (in minutes): 62
--- NOTE | 2023-11-24 13:14 | PTCARENOTE ---
Assumed care at 0700. VSS. NSR, HR 80-90s. AOx3, verbalizes 'restlessness' and 'agitation' d/t nicotine cravings, new order for Xanax noted. Denies cardiac or respiratory complaints at this time, but does note GI upset. Patient notified Dr. Harmon
of this during rounds. Updated patient and on plan of care. Encouraged to continue to make needs known.
[2023-11-24 14:55] VITALS: BP 158/91
[2023-11-24 16:33] LABS: APTT 66.1 Sec (23.4-35.0)
[2023-11-24] MEDS: NOVOLOG FLEXPEN 3 UNITS SC (17:42)
[2023-11-24] MEDS: LIPITOR 80 MG PO (17:42)
[2023-11-24 17:46] LABS: Glucose - Point of Care 220 mg/dl (70-99)
[2023-11-24 19:29] VITALS: BP 149/84
--- NOTE | 2023-11-24 21:12 | PTCARENOTE ---
Patient laying on side, felt some palpitations, HR 120's non-sustained, strip mounted in chart. Heparin infusing in left arm IV. Poor appetite, denies nausea. Call gibbons in reach
[2023-11-24] MEDS: HEPARIN 25000 UNITS/250 ML IV (22:52)
[2023-11-24] MEDS: LANTUS 0.0700000000000000067 UNITS SC (22:59)
[2023-11-24 23:01] LABS: Glucose - Point of Care 167 mg/dl (70-99)
[2023-11-24 23:04] VITALS: BP 158/88
[2023-11-24 23:52] LABS: APTT 118.4 Sec (23.4-35.0)
--- NOTE | 2023-11-25 05:08 | W.PN.CT ---
Today's Communication / Plan
-
Plan:
-Cont. current medical management per primary team
-Cont. current meds (ASA, Heparin gtt, NTG gtt, Lipitor, Nicotine patch; avoid DEE-I/ARB's in preparation for OR)
-Diabetes education/management f/u, started on insulin
-Ongoing preop workup
-For CABG by Dr. Alarcon on Sunday11/26/23
-Will stop heparin and NTG gtt cash applications analyst to OR
-Will cont. to closely monitor
Assessment / Plan
-
Assessment:
-Severe 3v CAD
-Inferior STEMI
-USA
-ICM (EF 35-40%)
-Mild TR
-Active tobacco abuse
-Newly diagnosed T2DM on this admission (hgb A1C 11.7)
-Does not seek medical care
-Leukocytosis
-Thrombocytosis
-Hyponatremia (125)
-Anemia
-GERD
Discussed patient care with: Cardiology, Nursing, Pharmacy and Care Team
Subjective
-
Date of Service: November 25, 2023
No issues overnight. Denies CP/SOB. C/O urge for nicotine, states Xanax helps
Objective Data
-
PT 14.2 Sec (11.4-14.6) 11/24/23 02:25
INR 1.11 11/24/23 02:25
APTT 118.4 Sec (23.4-35.0) H 11/24/23 23:10
Vital Signs
Vital Signs
Temp Pulse Resp BP Pulse Ox
98.1 F 92 16 158/88 95
11/24/23 23:03 11/24/23 23:04 11/24/23 23:03 11/24/23 23:04 11/24/23 23:03
CT Intake/Output/Weight
11/24/23 11/24/23 11/25/23
06:59 18:59 06:59
Intake Total 582 / 582 120 / 120
Balance 582 / 582 120 / 120
SaO2: 95 (RA)
Physical Exam
-
General: Awake, Oriented and AOx3
Cardiovascular: Regular rate & rhythm, No Murmurs, No Rub and No Gallop
Respiratory: Clear
Extremities: No Edema
Data Reviewed
-
Lab Results: Results Reviewed
Medications: Active Meds Reviewed
Chest X-Ray: Report Reviewed and Image Reviewed
ECG: Report Reviewed and Image Reviewed
[2023-11-25 05:39] VITALS: BP 155/83
[2023-11-25 05:56] LABS: Hematocrit 31.4 % (37.0-47.0); Hemoglobin 11.1 g/dL (12.0-16.0); Mean Corp Hgb Conc. 35.4 g/dL (33.0-37.0); Mean Corpuscular Hgb 28.7 pg (27.0-31.0); Mean Corpuscular Volume 81.1 fL (81.0-99.0); Platelet Count 534 10^3/uL (130-400); Red Blood Cell Count 3.87 10^6/uL (4.20-5.40); Red Cell Dist. Width 12.7 % (11.5-14.5); White Blood Cell Count 10.6 10^3/uL (4.8-10.8)
[2023-11-25 06:15] LABS: APTT 95.4 Sec (23.4-35.0)
[2023-11-25 06:19] LABS: ALT (SGPT) 11 U/L (0-35); AST (SGOT) 31 U/L (14-36); Albumin 3.4 g/dl (3.5-5.0); Alkaline Phosphatase 82 U/L (38-126); Blood Urea Nitrogen 7 mg/dl (7-17); Calcium 9.2 mg/dl (8.4-10.2); Carbon Dioxide 24 mmol/L (22-30); Chloride 97 mmol/L (98-107); Direct Bilirubin 0.4 mg/dl (0.0-0.4); Estimated Creatinine Clearance 74 ml/min; GGTP 29 U/L (12-43); Glucose 155 mg/dl (70-99); Potassium 4.2 mmol/L (3.5-5.1); Sodium 125 mmol/L (135-145); Total Bilirubin 0.4 mg/dl (0.2-1.3); eGFR > 60.00
[2023-11-25 06:57] VITALS: BP 147/84
[2023-11-25 07:02] LABS: Glucose - Point of Care 175 mg/dl (70-99)
[2023-11-25] MEDS: NICODERM TRANSDERMAL 21 MG TRANSDERM (08:15)
[2023-11-25] MEDS: ASPIR LOW (ENTERIC COATED) 81 MG PO (08:15)
[2023-11-25] MEDS: NOVOLOG FLEXPEN-LOW RESISTANCE 1 UNITS SC ×2 (08:16→17:30)
[2023-11-25] MEDS: NOVOLOG FLEXPEN 3 UNITS SC ×3 (08:16→17:31)
[2023-11-25 08:23] LABS: Glucose - Point of Care 168 mg/dl (70-99)
--- NOTE | 2023-11-25 09:28 | W.PN.UPDATE ---
Update Note
Progress Note Update
Procedure Type:�Isolated CABG
PERIOPERATIVE OUTCOME ESTIMATE %
Operative Mortality 3.13%
Morbidity & Mortality 10.8%
Stroke 1.38%
Renal Failure 1.07%
Reoperation 4.77%
Prolonged Ventilation 6.31%
Deep Sternal Wound Infection 0.283%
Long Hospital Stay (>14 days) 7.83%
Short Hospital Stay (<6 days)* 37.1%
Clinical Summary
Planned Surgery: Isolated CABG, Urgent, First cardiovascular surgery
Demographics: 68 year old, White, female, 52.7kg, 163cm, BMI: 19.8 kg/m�
Lab Values: Creatinine: 0.5 mg/dL, Hematocrit: 31.4%, WBC Count: 10.6 10�/�L, Platelet Count: 944020 cells/�L
Substance Abuse: Current smoker, Alcohol use: 2-7 drinks/week
Risk Factors / Comorbidities: Diabetes Mellitus
Cardiac Status: NYHA Class II, Ejection Fraction = 35%
Coronary Artery Disease: 3 vessels diseased, STEMI, LA: 1 to 7 Days
Valve Disease: Mild TR
--- NOTE | 2023-11-25 09:30 | W.PN.CD ---
Today's Communication / Plan
-
- NPO after midnight
-CT surgery in the morning.
Impression / Plan
-
STEMI
-EKG with inferior STEMI
-Emergent cardiac cath on 11/23/2023�Dr. Sánchez�multivessel severe coronary disease
-atorvastatin 80mg QPM
-CT surgery is following. Discussed case with Dr. Alarcon -plan for CABG on 11/26/2023
-Heparin IV stopped prior to CABG.
Hyponatremia
Hyperglycemia, glucose 315, Hgba1c in am
Leukocytosis, perhaps reactive, per primary
Current smoker, full cessation recommended
Physical Exam
Vital Signs/Labs
Vital Signs
Temp Pulse Resp BP Pulse Ox
98.4 F 83 20 147/84 94
11/25/23 06:55 11/25/23 08:00 11/25/23 06:55 11/25/23 06:57 11/25/23 06:55
11/24/23 11/25/23 11/26/23
06:59 06:59 06:59
Actual Weight 52.7 kg
11/25/23 05:48
11/25/23 05:48
PT 14.2 Sec (11.4-14.6) 11/24/23 02:25
INR 1.11 11/24/23 02:25
APTT 95.4 Sec (23.4-35.0) H 11/25/23 05:48
Magnesium 1.8 mg/dl (1.6-2.3) 11/24/23 02:25
Triglycerides 143 mg/dl (10-149) 11/24/23 02:25
LDL Cholesterol, Calc 79 mg/dl 11/24/23 02:25
VLDL Cholesterol, Calc 28 mg/dl (0-30) 11/24/23 02:25
HDL Cholesterol 61 mg/dl 11/24/23 02:25
TSH 0.46 uIU/ml (0.47-4.68) L 11/23/23 15:23
LAB Results
11/23/23 11/23/23 11/24/23
15:23 20:58 02:25
Troponin I 0.033 9.560 H* D 9.660 H*
11/24/23 11/24/23
09:01 16:12
Troponin I 10.700 H* 8.050 H*
Physical Exam
Constitutional: No acute distress and Comfortable
EENT: Anicteric and Moist mucous membranes
Cardiovascular: Rhythm & rate is regular, Pedal edema is absent and JVD pressure is normal
Respiratory: Respiratory effort normal and Lungs clear to auscul.
GI: Soft and Distention absent
Neuro/Psych: Alert, Oriented and AO x 3
Data Reviewed
-
Date of Service: November 25, 2023
Medical Decision Making: Reviewed Test Results, Independent Historian Assessment and Test Interpretation
Echo: Report Reviewed by me
Labs: Labs Reviewed by me
Old Records: Reviewed
--- NOTE | 2023-11-25 10:40 | PTCARENOTE ---
Assumed care at 0700. AOx3. VSS. NSR on telemetry. Denies cardiac, respiratory, and GI complaints this AM. Heparin gtt maintained, currently infusing at 1050units/hour. Plan of care ongoing.
--- NOTE | 2023-11-25 10:43 | W.PN.HOSP.TC ---
Today's Communication/Plan
-
urine studies
serum osm
nephro as Plan for OR
monitor poc
dc Xanax per pt
Assessment / Plan
Assessment / Plan
# Inferior STEMI
# Multivessel coronary disease
# Ischemic cardiomyopathy
-Troponin peaked to 10
-EKG shows sinus tachycardia, ST elevations in leads II, 3, aVF
-Chest x-ray unremarkable
-Echo shows EF of 35 to 40%, hypokinesis
-Heparin drip Continued
-Nitroglycerin drip per cards/CTS
-Patient underwent catheterization revealing multivessel coronary artery disease
-Aspirin, statin started
-Pre-op studies ordered per CTS
-CT surgery consult-plan for OR sunday
#Hyponatremia
-Na at 125 and BMP glucose appropriate.
-Check urine studies
-Check serum osm
-Check random cortisol
-will ask nephro input as plan for CABG tomm.
# DM2 uncontrolled
- A1c at 11.7
-Start basal bolus regimen as POC elevated
-Start glargine 7u and novolg 3u bolus
-ISS and adjust insulin as needed
# Leukocytosis likely reactive
-Continue to monitor.Resolved.
#Active smoker
-Nicotine patch
-does not want xanax-dced.
Full code
DVT prophylaxis�heparin
Diabetic diet
d/w with spouse at bedside in details on 11/23
Anticipated Discharge: > 48 hours
Subjective/Interval History
-
Date of Service: November 25, 2023
states feeling fatigue, tired and sleepy
does not want xanax any more
Objective Data
-
Labs:
Laboratory Results
11/24/23 11/25/23 11/25/23
23:10 05:48 12:00
WBC 10.6
Hgb 11.1 L
Hct 31.4 L
Plt Count 534 H
APTT 118.4 H 95.4 H Pending
Sodium 125 L
Potassium 4.2
Chloride 97 L
Carbon Dioxide 24
BUN 7
Creatinine 0.5 L
Glucose 155 H
Calcium 9.2
Total Bilirubin 0.4
AST 31
ALT 11
Alkaline Phosphatase 82
Vital Signs:
Vital Signs
Temp Pulse Resp BP Pulse Ox
98.4 F 83 20 147/84 94
11/25/23 06:55 11/25/23 08:00 11/25/23 06:55 11/25/23 06:57 11/25/23 06:55
I&O
11/24/23 11/25/23 11/26/23
06:59 06:59 06:59
Intake Total 582 / 582 120 / 120
Balance 582 / 582 120 / 120
Physical Exam
-
General: Appears Chronically Ill and Cachectic
HEENT: Normocephalic, Atraumatic and Moist Mucous Membranes
Respiratory: Decreased Breath Sounds
Cardiac: Regular Rhythm and S1/S2; Negative Murmur, Rub or Gallop
GI: Soft, Nontender, Nondistended and Normal Bowel Sounds; Negative Organomegaly
Rectal: Deferred by Provider
Musculoskeletal: No Clubbing, No Cyanosis and No Edema
Skin: Negative Rash
Neuro: Awake, No Motor Deficits and Nonfocal/Grossly Intact
Psych: Calm
Data Reviewed
-
Total Time Spent with Patient (in minutes): 55
[2023-11-25 11:25] LABS: Osmolality Serum 265 mOsm/kg (275-300)
--- NOTE | 2023-11-25 11:56 | W.PN.UPDATE ---
Update Note
Progress Note Update
Preop CT surgery workup complete
Preoperative CT surgery orders placed
Continue primary management per hospitalist service
Continue heparin drip and nitroglycerin drip per cardiology
Heparin drip to be stopped on-call to the OR
N.p.o. after midnight
Plan for coronary artery revascularization Sunday11/26/[address] Dorian MD.
[2023-11-25 12:07] LABS: Glucose - Point of Care 244 mg/dl (70-99)
[2023-11-25] MEDS: NOVOLOG FLEXPEN-LOW RESISTANCE 2 UNITS SC (12:09)
[2023-11-25 12:26] VITALS: BP 157/94
[2023-11-25 12:42] LABS: APTT 60.3 Sec (23.4-35.0)
[2023-11-25 13:30] LABS: Osmolality Urine 171 mOsm/kg (300-900)
--- NOTE | 2023-11-25 13:40 | W.CON.NEPH ---
Consultation
-
Date/Time Consultation Requested: November 25, 2023 12 noon
Date/Time Consultation Performed: November 25, 2023 1:30 PM
Requesting Provider: Dr. Beverly
Performing Provider: Dr. Petty
Reason for Consultation: Hyponatremia
Medical History
-
Chief Complaint: Hyponatremia
History of Present Illness:
This is a 68-year-old female with very limited past medical history as she has not seen a healthcare provider in over 20 years. She does not take medications other than vvhy-fgj-ppqgjzo drugs. About 2 weeks ago her father had . This
had then began several symptoms. This started with gas-like pains as well as chest pain and then nausea vomiting diarrhea and cramping. He was taking simethicone without significant relief. She then developed acute chest pain with diaphoresis.
She came to the emergency room where she was noted to have an inferior ST elevation myocardial infarction. She was given beta-patrick therapy, heparin infusion, aspirin, intravenous nitroglycerin. She was taken to the catheterization lab which had
shown multivessel disease primarily in the LAD but also the diagonal and left circumflex. She was seen by CT surgery and there are plans for bypass grafting tomorrow. We are asked to see her because she was also noted to have hyponatremia with a
sodium level 125. She is also noted to have an A1c of over 11.
Past Medical History
Diabetes mellitus type 2, coronary disease
Past Surgical History: None
Social History
Tobacco: Smoker
Alcohol: Occasional
Family History
No known CKD
Allergies / Home Medications
Allergy/AdvReac Type Severity Reaction Status Date / Time
Sulfa (Sulfonamide Allergy Unknown Verified 11/23/23 18:30
Antibiotics)
�Medication �Instructions �Recorded �Confirmed �Type
No Meds [No Current Medications] 11/23/23 11/23/23 History
Review of Systems
-
Currently no chest pain or shortness of breath. No diaphoresis. No abdominal pain. The remainder of the complete review of systems was negative.
Physical Exam
Vital Signs
Vital Signs
Temp Pulse Resp BP Pulse Ox
98.9 F 83 20 147/84 97
11/25/23 12:24 11/25/23 08:00 11/25/23 12:24 11/25/23 06:57 11/25/23 12:24
Lab Results
WBC 10.6 10^3/uL (4.8-10.8) 11/25/23 05:48
RBC 3.87 10^6/uL (4.20-5.40) L 11/25/23 05:48
Hgb 11.1 g/dL (12.0-16.0) L 11/25/23 05:48
Hct 31.4 % (37.0-47.0) L 11/25/23 05:48
Plt Count 534 10^3/uL (130-400) H 11/25/23 05:48
eGFR > 60.00 11/25/23 05:48
Albumin 3.4 g/dl (3.5-5.0) L 11/25/23 05:48
Physical Exam
Patient is awake alert oriented and in no distress. Mood and affect were pleasant, insight and judgment were good. Pupils are equal round and reactive to light, extraocular movements are intact, sclera were anicteric. Hearing was normal, ears and
nose are intact. Oropharynx was clear. Neck was supple with trachea midline and no thyromegaly. Heart was regular rate and rhythm without rubs. Lower extremities without edema. Lungs were clear to auscultation bilaterally and with normal
excursion. Abdomen was soft, nontender, with normal active bowel sounds, and no hepatosplenomegaly. Skin was without rash and with normal turgor.
Data Reviewed
-
Radiology: Image Personally Visualized and interpreted (Chest x-ray on November 23, 2023 by my reading shows no acute disease)
Medical Tests (Nuc Med, Echo etc): Image Personally Visualized and interpreted (EKG on November 24, 2023 by my read shows normal sinus rhythm with anterior Q waves) and Report Reviewed by me (Cardiac catheterization on November 23, 2023 shows ejection
fraction 45% on LV gram, stenosis of the LAD diagonal and circumflex, distal occlusion of the RCA.)
Labs: Labs Reviewed by me (Sodium 125, potassium 4.2, chloride 97, bicarb 24, BUN 7, creatinine 0.5, glucose 155, A1c 11.7, troponin 8.05, albumin 3.4, urine osmolality 171, hemoglobin 11.1)
Assessment/Plan
-
Assessment:
Inferior ST elevation DC
Multivessel CAD
Heart failure reduced ejection fraction
Hyponatremia
Diabetes mellitus type 2
Tobacco abuse
Plan:
I discussed with the patient her hyponatremia. Her urine osmolality was 171. We will begin with hypertonic saline at this time.
Serial BMP
I have no reservations from a renal perspective of her undergoing CT surgery tomorrow
This was discussed with the patient at length
She will also require medications for her diabetes, likely Jardiance or Farxiga with the addition of metformin
She may also benefit from long-term Lasix use.
Fluid restriction 40 ounces per day
[2023-11-25 13:54] LABS: Urine Sodium 16 mmol/L (30-90)
[2023-11-25] MEDS: SODIUM CHLORIDE 3% 250 IV (14:11)
[2023-11-25 16:04] VITALS: BP 147/85
[2023-11-25 17:12] LABS: Glucose - Point of Care 163 mg/dl (70-99)
[2023-11-25] MEDS: LIPITOR 80 MG PO (17:32)
[2023-11-25 19:10] LABS: Blood Urea Nitrogen 9 mg/dl (7-17); Calcium 9.4 mg/dl (8.4-10.2); Carbon Dioxide 23 mmol/L (22-30); Chloride 97 mmol/L (98-107); Estimated Creatinine Clearance 74 ml/min; Glucose 165 mg/dl (70-99); Sodium 128 mmol/L (135-145); eGFR > 60.00
[2023-11-25 19:24] VITALS: BP 155/82
--- NOTE | 2023-11-25 20:37 | PTCARENOTE ---
Patient clipped, 4% CHG and showered, linens changed
[2023-11-25 21:16] LABS: Glucose - Point of Care 149 mg/dl (70-99)
[2023-11-25] MEDS: LANTUS 0.0500000000000000028 UNITS SC (21:31)
[2023-11-25 22:23] VITALS: BP 127/74
[2023-11-26] VITALS (8 sets, daily range): BP systolic 97–151; BP diastolic 66–85; BMI 19.9
[2023-11-26 02:29] LABS: Hematocrit 29.8 % (37.0-47.0); Hemoglobin 10.4 g/dL (12.0-16.0); Mean Corp Hgb Conc. 34.9 g/dL (33.0-37.0); Mean Corpuscular Hgb 28.7 pg (27.0-31.0); Mean Corpuscular Volume 82.1 fL (81.0-99.0); Mean Platelet Volume 9.2 fL (7.4-10.4); Platelet Count 526 10^3/uL (130-400); Red Blood Cell Count 3.63 10^6/uL (4.20-5.40); Red Cell Dist. Width 12.6 % (11.5-14.5); White Blood Cell Count 9.6 10^3/uL (4.8-10.8)
[2023-11-26 02:43] LABS: APTT 107.1 Sec (23.4-35.0); Blood Urea Nitrogen 10 mg/dl (7-17); Calcium 9.1 mg/dl (8.4-10.2); Carbon Dioxide 22 mmol/L (22-30); Chloride 101 mmol/L (98-107); Estimated Creatinine Clearance 74 ml/min; Glucose 147 mg/dl (70-99); Magnesium 1.8 mg/dl (1.6-2.3); Potassium 3.8 mmol/L (3.5-5.1); Sodium 132 mmol/L (135-145); eGFR > 60.00
--- NOTE | 2023-11-26 06:24 | PTCARENOTE ---
CHG 4% shower completed again
[2023-11-26] MEDS: PROTONIX 40 MG PO (08:29)
[2023-11-26] MEDS: MAGNESIUM OXIDE 500 MG PO (08:29)
[2023-11-26] MEDS: LOPRESSOR 25 MG PO (08:29)
[2023-11-26] MEDS: MAGNESIUM OXIDE PO (08:29)
[2023-11-26] MEDS: BACTROBAN 2% OINTMENT 1 APPLIC NASAL ×2 (08:30→20:05)
[2023-11-26 08:44] LABS: Glucose - Point of Care 168 mg/dl (70-99)
[2023-11-26] MEDS: NOVOLOG FLEXPEN SC ×2 (08:44→19:43)
[2023-11-26] MEDS: NOVOLOG FLEXPEN-LOW RESISTANCE 1 UNITS SC (08:45)
--- NOTE | 2023-11-26 09:41 | CM ---
pt for CABG today, cm to follow.
[2023-11-26] MEDS: NICODERM TRANSDERMAL TRANSDERM (09:43)
[2023-11-26] MEDS: ASPIR LOW (ENTERIC COATED) PO (09:43)
--- NOTE | 2023-11-26 10:08 | W.PN.UPDATE ---
Update Note
Progress Note Update
68 y/o female presented to with CP for several weeks, EKG showed a STEMI. [facility] preformed showed MVD and patient was taken to the CVOR on 11/25.
IV fluids: 2200
U.O.:� 200
UF:� 1650
Blood:� None
Wires:� V
Inotropes:� None
Pressors:� None (on NTG upon arrival)
Sedatives:� precedex
�
NEURO: sedated on precedex, pupils +2mm B/L
RESP: #8OT @22cm> 500/60%/14/5. Lungs clear B/L. 1 mediastinal and L pleural (40cc on arrival) chest tubes to -20cm suction. Sanguineous drainage
CV: RRR +S1, S2, no S3, no�rub, no murmur. Dermabond to median sternotomy. RIJ Cordis with [place]
ABD: round, soft, no BS
EXT: no edema, +2/4 DP pulses B/L, no femoral bruit, RLE DEE wrap intact; left radial A-line intact
: Su with clear yellow urine
�
A/P: POD #0 s/p CABG x4
CASSANDRA: EF�60-65%
- wean and extubate
-Monitor CT and Urine output
-Wean levo for MAPS >65
- Start ASA tonight and plavix tomorrow
-No post-op prophylaxis Amio unless she develops afib
- F/U post-op EKG
�
# acute surgical blood loss anemia-expected
- trend CBC; if Hgb <7 will transfused with 1uPRBCs
�
# DMII
- insulin infusion x 48h
- DM WATER PURIFIER consulted
�
# Hyperlipidemia
- resume�statin once tolerating PO
--- NOTE | 2023-11-26 11:02 | W.CVOR.SURPR ---
CVOR Surgeon Immed Pre Op
-
I have examined this patient prior to performance of the scheduled procedure.
The patient's condition is unchanged from the time of the dictated/written History and
Physical and the patient is able to undergo the scheduled procedure.
--- NOTE | 2023-11-26 12:05 | CM ---
spoke to pt and daughter in room, she is prev indep. lives with her husb in a 2 story home with 1 step to enter. she has a cane at home to use if needed. we discussed preop CABG teaching. she has the cardiac surgery book. she is agreeable to a f/u
visit from the ct transitional care nurse after dc. plan is for CANG today, cm to follow.
[2023-11-26 12:36] LABS: ACT+ - POC 93 Seconds (82-134)
[2023-11-26 12:53] LABS: B.E. - POC -5.3 mmol/L; Glucose - POC 95 mg/dl (65-99); HCO3 - POC 20 mmol/L (21-29); Hematocrit - POC 24 % PCV (37-47); Hemodilution- POC No; Hemoglobin Calculated - POC 8.2; Ionized Calcium - POC 1.15 mmol/L (1.12-1.27); PCO2 - POC 35 mmHg (35-45); PO2 - POC 386 mmHg (80-100); Potassium - POC 3.1 mmol/L (3.6-5.0); Sodium - POC 136 mmol/L (135-145); pH - POC 7.36 (7.35-7.45)
[2023-11-26 13:09] LABS: Urine Albumin Trace (Neg - Trace); Urine Bilirubin Negative (Negative); Urine Character Slightly Cloudy (Clear); Urine Glucose Negative (Negative); Urine Ketone 1+ (Negative); Urine Leukocyte 2+ (Negative); Urine Nitrite Negative (Negative); Urine Occult Blood Negative (Negative); Urine Urobilinogen Negative (Neg - 1+)
[2023-11-26 13:17] LABS: Urine Color Yellow
[2023-11-26 13:30] LABS: Urine Bacteria Few (Negative); Urine Red Blood Cell 0-2 /HPF (0-2)
[2023-11-26 13:40] LABS: ACT+ - POC 423 Seconds (82-134)
[2023-11-26 14:06] LABS: B.E. - POC -1.7 mmol/L; Glucose - POC 96 mg/dl (65-99); HCO3 - POC 23 mmol/L (21-29); Hematocrit - POC 20 % PCV (37-47); Hemodilution- POC Yes; Hemoglobin Calculated - POC 6.9; Ionized Calcium - POC 0.96 mmol/L (1.12-1.27); O2 Saturation %Calculated-POC 99.9 5 (92-96); PCO2 - POC 37 mmHg (35-45); PO2 - POC 304 mmHg (80-100); Potassium - POC 3.7 mmol/L (3.6-5.0); Sodium - POC 136 mmol/L (135-145)
[2023-11-26 14:09] LABS: ACT+ - POC 457 Seconds (82-134)
[2023-11-26 14:45] LABS: B.E. - POC -3.1 mmol/L; Glucose - POC 105 mg/dl (65-99); HCO3 - POC 22 mmol/L (21-29); Hematocrit - POC 22 % PCV (37-47); Hemodilution- POC Yes; Hemoglobin Calculated - POC 7.3; Ionized Calcium - POC 1.04 mmol/L (1.12-1.27); O2 Saturation %Calculated-POC 99.8 5 (92-96); PCO2 - POC 39 mmHg (35-45); PO2 - POC 230 mmHg (80-100); Potassium - POC 4.1 mmol/L (3.6-5.0); Sodium - POC 138 mmol/L (135-145); pH - POC 7.36 (7.35-7.45)
[2023-11-26 14:47] LABS: ACT+ - POC 462 Seconds (82-134)
[2023-11-26 15:18] LABS: ACT+ - POC 96 Seconds (82-134)
[2023-11-26 15:20] LABS: B.E. - POC -1.6 mmol/L; Glucose - POC 107 mg/dl (65-99); HCO3 - POC 23 mmol/L (21-29); Hematocrit - POC 24 % PCV (37-47); Hemodilution- POC Yes; Hemoglobin Calculated - POC 8.2; Ionized Calcium - POC 1.29 mmol/L (1.12-1.27); O2 Saturation %Calculated-POC 99.9 5 (92-96); PCO2 - POC 35 mmHg (35-45); PO2 - POC 269 mmHg (80-100); Potassium - POC 3.6 mmol/L (3.6-5.0); Sodium - POC 141 mmol/L (135-145); pH - POC 7.42 (7.35-7.45)
--- NOTE | 2023-11-26 15:40 | W.PN.CT.SURG ---
CT Surgery Operative Note
-
Pre-op Diagnosis: CAD
stemi
Post-op Diagnosis: Same
Procedure: Cabg x 4
snow- diag/lad
svg - om
svg - pda
on pump
revh
laal #35 clip
Primary Surgeon: Highbloom
Assisting Surgeons: Mcsorly - leg and chest
Specimen: None
Cultures: None
Complications / Blood Loss: None
Findings: Portillo with preop ef 50-55, post op 65, no new wma
kasey free of clot, completely occluded with clip
good conduit
severe calcific cad,diffuse
--- NOTE | 2023-11-26 15:49 | CON.INTV ---
Consultation
Consultation Request
Date/Time Consultation Requested: 11/26/2023
Date/Time Consultation Performed: 11/26/2023
Requesting Provider:
Performing Provider: Dr. José Bettencourt
Reason for Consultation: Postoperative ICU care
Medical History
-
History of Present Illness:
68-year-old woman who was admitted with a ST elevation myocardial infarction. Emergent cardiac catheterization 11/23/2023 demonstrated multivessel coronary artery disease.
Patient was deemed candidate for surgical revascularization. Underwent coronary artery bypass on 11/26/2023.
Past Medical History
Past Medical History: Other (See assessment and plan section)
Social History
Tobacco: Smoker
Alcohol: None
Drug: None
Family History
Family History: Reviewed & Not Pertinent
Allergies / Home Medications
Allergies
Allergy/AdvReac Type Severity Reaction Status Date / Time
Sulfa (Sulfonamide Allergy Unknown Verified 11/23/23 18:30
Antibiotics)
Home Medications
�Medication �Instructions �Recorded �Confirmed �Last Taken �Type
No Meds [No Current Medications] 11/23/23 11/23/23 Unknown History
Review of Systems
-
Unable to Obtain full review of systems at this time due to: Patient Intubation
Vitals / Labs / Diagnostic Testing
Vital Signs
Temp Pulse Resp BP Pulse Ox
98.1 F 79 16 151/80 100
11/26/23 11:05 11/26/23 11:14 11/26/23 11:05 11/26/23 11:14 11/26/23 11:05
Laboratory Results
11/25/23 11/26/23
18:35 02:08
APTT 93.0 H 107.1 H
Diagnostic Testing:
Physical Exam
-
HEENT: Normocephalic and Other (ET tube in place without secretions)
Cardiovascular: S1/S2
Respiratory: Clear, Non-Labored Respirations and Other (Chest tube in place without air leak.)
GI: Soft and Non Distended
Neurology: Awake, Alert and Oriented
Skin: Warm
General: Respiratory Distress (n)
Assessment
-
68-year-old woman admitted with chest pain. Found to have ST elevation myocardial infarction. Underwent catheterization that demonstrated multivessel coronary artery disease. Evaluated by CT surgery and she was deemed candidate for
revascularization. Underwent coronary artery bypass on 11/26/2023.
Status post coronary artery bypass 11/26/2023
Postoperative mechanical ventilation
Postoperative
Inferior ST elevation myocardial infarction-multivessel coronary toe disease
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
Conditions present prior admission:
Tobacco
Type 2 diabetes
Assessment and plan:
She is doing well postop-currently on mechanical ventilation and appears comfortable.
ABG reviewed: Adequate oxygenation on ventilation.
Continue SIMV mode with no change
Spontaneous breathing trial per protocol once sedation wears off.
Anemia noted-no evidence of acute bleeding
H&H to be repeated. Transfusion may be needed.
Follow H&H serially
Hemodynamics -although requiring nitroglycerin.
Brisk urinary output
Normal renal function.
Chest tube with no excessive drainage-no air leak.
Chest x-ray: Pending.
Remain nothing by mouth
Head of the bed elevation
Glycemic control per protocol
DVT prophylaxis when safe from the surgical perspective.
Critical care statement: A total of 32 minutes of critical care time was provided for this patient today. This includes management of unstable vital signs, evaluation of the patient at bedside, reviewing the patient's pertinent medical records
including ventilator settings, arterial blood gases, radiographs, microbiology, laboratory evaluations and discussion with primary team, critical care nursing, and respiratory therapy.
[2023-11-26] MEDS: ANCEF 5 IV ×2 (16:00→21:50)
[2023-11-26] MEDS: LIPITOR PO (16:00)
[2023-11-26] MEDS: TYLENOL PO (16:00)
--- NOTE | 2023-11-26 16:00 | PTCARENOTE ---
Report received via phone from cvor RN: Patient received into room 2268 status post CABG x 4/PERLA clip: no blood products intra op. Updated report received from Zulema Maldonado CRNA at the bedside. Patient remains intubated and sedated on precedex gtt.
Insulin protocol. Per report, patient is very sensitive to nitro and levo gtts for BP control. Chest tubes x 2: mediastinal and left pleural to 1 pleur evac -20 wall suction: no air leak. Epicardial v wire for back up rate of 40bpm/ma 10 and
sensitivity at 0.8 and properly sensing. Critical hemoglocin initially repeated and was confirmed to be critical at 6.6 with a hematocrit of 20. CT surg PA Lucy Haney aware of same: new orders received to transfuse 1 unit of PRBC: blood warmer
utilized. See flowrecord for remainin assessments.
[2023-11-26 16:07] LABS: Glucose - Point of Care 159 mg/dl (70-99)
--- NOTE | 2023-11-26 16:08 | W.PN.CD ---
Addendum entered and electronically signed by Justin Alberto, 11/26/23 19:29:
I have seen and examined the patient. I can confirm Ms. Lucero's findings and I agree with her assessment and plan as documented.
S/P CABG x4 (sequential TIERNEY to diagonal then LAD, SVG to OM, SVG to PDA) and LAAL (#35 Atriclip), POD #0.
Anticipated routine post operative care.
Wean vent to extubation.
Wean pressors/inotropes.
Secondary prevention with high dose, high potency statin.
Tobacco cessation.
Diabetes control. She will benefit from GLP-1 analog.
Incentive spirometry.
Ambulate when appropriate.
Pain control/chest tube management per CT surgery.
Original Note:
Today's Communication / Plan
-
Follow telemetry
Impression / Plan
-
STEMI S/P CABG x 4 (TIERNEY-Diag/LAD, SVG-OM, SVG-PDA & #35 PERLA clip) 11/26/[address] Alarcon
-Pre-EF 50-55%, post 65% without regional wall motion abnormality
-EKG with anterior infarct
-On NTG for hypertension
-Extubation per Profiler Operator
-Follow telemetry
-On admission EKG with inferior STEMI & anterolateral hypokinesis then emergent cardiac cath on 11/23/2023 ([facility]) with multivessel severe coronary disease
Hyponatremia, nephrology following
HLD, goal LDL < 55, started on atorvastatin 80mg QPM
Hyperglycemia, Hgba1c 11.7%, started on insulin per Hospitalist
Current smoker, full cessation recommended
Physical Exam
Vital Signs/Labs
Vital Signs
Temp Pulse Resp BP Pulse Ox
98.1 F 79 16 151/80 100
11/26/23 11:05 11/26/23 11:14 11/26/23 11:05 11/26/23 11:14 11/26/23 11:05
11/25/23 11/26/23 11/27/23
06:59 06:59 06:59
Actual Weight 52.6 kg
PT 14.2 Sec (11.4-14.6) 11/24/23 02:25
INR 1.11 11/24/23 02:25
APTT 107.1 Sec (23.4-35.0) H 11/26/23 02:08
Magnesium 1.8 mg/dl (1.6-2.3) 11/26/23 02:08
Triglycerides 143 mg/dl (10-149) 11/24/23 02:25
LDL Cholesterol, Calc 79 mg/dl 11/24/23 02:25
VLDL Cholesterol, Calc 28 mg/dl (0-30) 11/24/23 02:25
HDL Cholesterol 61 mg/dl 11/24/23 02:25
TSH 0.46 uIU/ml (0.47-4.68) L 11/23/23 15:23
LAB Results
11/23/23 11/24/23 11/24/23
20:58 02:25 09:01
Troponin I 9.560 H* D 9.660 H* 10.700 H*
11/24/23
16:12
Troponin I 8.050 H*
Physical Exam
Constitutional: No acute distress and Comfortable
EENT: Anicteric and Moist mucous membranes
Cardiovascular: Rhythm & rate is regular, S1S2 is normal and Murmur/rub/gallop absent
Respiratory: Lungs clear to auscul. and Other (ETT to mechanical ventilation)
GI: Soft and Flat
Neuro/Psych: Other (sedated)
Other: Skin (warm and dry; surgical site approximated without drainage)
Data Reviewed
-
Date of Service: November 26, 2023
EKG: Report Reviewed by me
Labs: Labs Reviewed by me
Old Records: Reviewed
[2023-11-26 16:12] LABS: Platelet Count 336 10^3/uL (130-400)
[2023-11-26 16:14] LABS: B.E. -3.9 mmol/L; HCO3 20.1 mmol/L (21-28); Ionized Calcium 1.21 mMOL/L (1.15-1.33); O2 Saturation % 99.9 % (94-98); PCO2 31 mmHg (32-35); PO2 164 mmHg (83-108); Potassium 4.7 mMOL/L (3.5-5.1); Sodium 136 mMOL/L (136-145); pH 7.42 (7.35-7.45)
[2023-11-26 16:17] LABS: Hemoglobin 6.7 g/dL (12.0-16.0)
[2023-11-26 16:21] LABS: INR 1.43; PT 17.3 Sec (11.4-14.6)
[2023-11-26 16:22] LABS: APTT 31.9 Sec (23.4-35.0)
[2023-11-26 16:27] LABS: Blood Urea Nitrogen 9 mg/dl (7-17); Estimated Creatinine Clearance 73 ml/min; Glucose 129 mg/dl (70-99)
[2023-11-26 16:36] LABS: Platelet Count 328 10^3/uL (130-400)
[2023-11-26 16:43] LABS: Hematocrit 19.2 % (37.0-47.0); Hemoglobin 6.6 g/dL (12.0-16.0)
--- NOTE | 2023-11-26 17:00 | PTCARENOTE ---
1 unit PRBC infused via blood warmer without reaction. Vitals stable: patient is awakening spontaneously and following simple commands and moving all extremities x 4 to command. Pointing to ett and wants it out.
[2023-11-26 17:44] LABS: Glucose - Point of Care 153 mg/dl (70-99)
--- NOTE | 2023-11-26 18:00 | PTCARENOTE ---
Tolerating CPAP wean trial well. Awake and following commands. Slightly anxious.
[2023-11-26 18:49] LABS: HCO3 18.2 mmol/L (21-28); Ionized Calcium 1.12 mMOL/L (1.15-1.33); O2 Saturation % 99.1 % (94-98); PCO2 30 mmHg (32-35); PO2 154 mmHg (83-108); Potassium 3.4 mMOL/L (3.5-5.1); pH 7.39 (7.35-7.45)
[2023-11-26 18:52] LABS: Glucose - Point of Care 136 mg/dl (70-99)
[2023-11-26] MEDS: NSS IV (19:07)
[2023-11-26] MEDS: PACERONE PO (19:08)
[2023-11-26] MEDS: NEURONTIN PO (19:08)
--- NOTE | 2023-11-26 19:16 | RESPNOTE ---
PT extubated to 6 LPM NC. Pt presents with + vocalization and - stridor
--- NOTE | 2023-11-26 19:22 | PTCARENOTE ---
Patient received intubated, awake and following commands. VSS, Crys in place monitoring BP. SWAN in place. NSR on monitor. Currently on insulin and levophed. Chest tube output minimum. UOP elevated, around 60-75 an hour clear yellow. ABG returned
from CPAP and patient extubated at 1920 with respiratory at bedside.
[2023-11-26] MEDS: NOVOLOG FLEXPEN-LOW RESISTANCE SC (19:44)
[2023-11-26] MEDS: SENOKOT-S PO (19:53)
[2023-11-26] MEDS: KCL 50 IV ×2 (20:01→21:10)
[2023-11-26] MEDS: CALCIUM CHLORIDE 10% SYRINGE 50 MG IV (20:02)
[2023-11-26] MEDS: CALCIUM CHLORIDE 10% SYRINGE 50 ML IV (20:02)
[2023-11-26] MEDS: LOW STRENGTH ASPIRIN 81 MG PO (20:04)
[2023-11-26] MEDS: SODIUM BICARBONATE 50 MEQ IV (20:04)
[2023-11-26] MEDS: ROXICODONE 5 MG PO (20:08)
[2023-11-26 20:17] LABS: Glucose - Point of Care 94 mg/dl (70-99)
[2023-11-26 20:23] LABS: Hematocrit 25.3 % (37.0-47.0); Hemoglobin 8.9 g/dL (12.0-16.0); Platelet Count 439 10^3/uL (130-400)
[2023-11-26] MEDS: TYLENOL 1000 MG PO (21:49)
[2023-11-26] MEDS: PACERONE 200 MG PO (21:50)
[2023-11-26] MEDS: NEURONTIN 100 MG PO (21:50)
[2023-11-26 21:56] LABS: Glucose - Point of Care 84 mg/dl (70-99)
--- NOTE | 2023-11-26 22:52 | PTCARENOTE ---
Patient pressure arterial BP dropping on monitor, reinitiated on levophed. Discussed plan with CT PA and continue with levophed over fluids for now and attempt to wean levophed as tolerated
[2023-11-27] VITALS (28 sets, daily range): BP systolic 97–138; BP diastolic 60–84; BMI 20.4
[2023-11-27 00:08] LABS: Glucose - Point of Care 115 mg/dl (70-99)
--- NOTE | 2023-11-27 00:12 | PTCARENOTE ---
Patient with no changes in previous assessment. Restarted on levophed briefly for hypotension, now off again with MAPs in 80's. Insulin continued per protocol. continued in NSR. Able to make needs known.
--- NOTE | 2023-11-27 01:04 | W.PN.CT ---
Today's Communication / Plan
-
Plan:
-No major issues overnight. Hemodynamically and neurologically intact
-Successfully extubated 11/26/23 @ 1916
-Weaned off Levophed gtt overnight. On insulin gtt per protocol
-Last CI 2.3, U/O since OR 1010 mL
-Cont. current meds (ASA, Amiodarone, Lipitor, Lopressor; will add Plavix)
-Monitor chest tube output: 1med + L pleural 165/265. Will consider d/c of med and transition pleural to bulb suction
-D/C'd swan and A-line this AM @ 0400
-Cont. insulin gtt per protocol, transition off and tele phase tomorrow
-Will consult diabetes education/management given hgb A1C 11.7, newly diagnosed diabetes
-D/C elder catheter
-Maintain cordis
-Maintain temporary PW (will cut before d/c home)
-OOB into chair/Ambulate
-Encourage use of IS
-Wean off of O2 as tolerated
Assessment / Plan
-
Assessment:
-S/P Cabg x 4 (snow- diag/lad, svg - om, svg - pda)/revh/laal #35 clip, by Dr. Alarcon, 11/26/23, pod#1
-Severe 3v CAD
-Inferior STEMI
-USA
-ICM (EF 35-40%) per TTE 11/23/23; 55% pre and 65% postop per intraop CASSANDRA
-Active tobacco abuse
-Newly diagnosed T2DM on this admission (hgb A1C 11.7)
-Does not seek medical care
-Leukocytosis
-Thrombocytosis
-Hyponatremia (125)
-Anemia
-GERD
-Acute postop blood loss on preop Anemia (transfused 1u PRBC)
-Acute postop atelectasis
Discussed patient care with: Cardiology, Nursing, Respiratory Therapy, Pharmacy and Care Team
Subjective
Procedure
S/P Cabg x 4 (snow- diag/lad, svg - om, svg - pda)/revh/laal #35 clip, by Dr. Alarcon, 11/26/23
-
Date of Service: November 27, 2023
Pt c/o incisional pain, otherwise feels well
Objective Data
-
PT 17.3 Sec (11.4-14.6) H 11/26/23 16:01
INR 1.43 11/26/23 16:01
APTT 31.9 Sec (23.4-35.0) 11/26/23 16:01
Vital Signs
Vital Signs
Temp Pulse Resp BP Pulse Ox
98.5 F 94 16 117/79 100
11/27/23 00:00 11/27/23 00:00 11/27/23 00:00 11/27/23 00:00 11/27/23 00:00
CT Intake/Output/Weight
11/26/23 11/26/23 11/27/23
06:59 18:59 06:59
Intake Total 120 / 600 308.1 / 563.7 255.6 / 563.7
Output Total 550 / 1110 560 / 1110
Balance 120 / 600 -241.9 / -546.3 -304.4 / -546.3
SaO2: 100 (2L)
Physical Exam
-
General: Awake, Oriented and AOx3
Cardiovascular: Regular rate & rhythm, No Murmurs, No Rub and No Gallop
Respiratory: Decreased Breath Sounds (at bases, otherwise clear)
Sternum: Stable
Incision: Clean, Dry, Intact and Dressing Intact
Extremities: No Edema
Data Reviewed
-
Lab Results: Results Reviewed
Medications: Active Meds Reviewed
Chest X-Ray: Report Reviewed and Image Reviewed
ECG: Report Reviewed and Image Reviewed
[2023-11-27] MEDS: FLEXERIL 5 MG PO ×2 (01:09→09:19)
[2023-11-27] MEDS: ROXICODONE 5 MG PO ×2 (01:09→05:02)
[2023-11-27 01:59] LABS: Glucose - Point of Care 125 mg/dl (70-99)
[2023-11-27 03:23] LABS: Ionized Calcium 1.35 mMOL/L (1.15-1.33)
[2023-11-27 03:27] LABS: Hematocrit 25.7 % (37.0-47.0); Hemoglobin 8.6 g/dL (12.0-16.0); Mean Corp Hgb Conc. 33.5 g/dL (33.0-37.0); Mean Corpuscular Hgb 28.9 pg (27.0-31.0); Mean Corpuscular Volume 86.2 fL (81.0-99.0); Mean Platelet Volume 9.3 fL (7.4-10.4); Platelet Count 397 10^3/uL (130-400); Red Blood Cell Count 2.98 10^6/uL (4.20-5.40); Red Cell Dist. Width 13.1 % (11.5-14.5); White Blood Cell Count 12.4 10^3/uL (4.8-10.8)
--- NOTE | 2023-11-27 03:32 | PTCARENOTE ---
Patient overall status unchanged. Continued NSS, weaned to 2 L NC. weaned off Levophed. AM labs sent, awaiting results to remove lines from patient.
[2023-11-27 03:55] LABS: Blood Urea Nitrogen 14 mg/dl (7-17); Calcium 9.5 mg/dl (8.4-10.2); Carbon Dioxide 19 mmol/L (22-30); Chloride 111 mmol/L (98-107); Estimated Creatinine Clearance 73 ml/min; Glucose 88 mg/dl (70-99); Magnesium 1.9 mg/dl (1.6-2.3); Potassium 4.2 mmol/L (3.5-5.1); Sodium 139 mmol/L (135-145); eGFR > 60.00
[2023-11-27 04:08] LABS: Glucose - Point of Care 93 mg/dl (70-99)
--- NOTE | 2023-11-27 04:22 | PTCARENOTE ---
Patient delined and up to chair with no issues, VSS.
[2023-11-27] MEDS: ANCEF 5 IV ×2 (05:01→14:30)
[2023-11-27] MEDS: TYLENOL 1000 MG PO ×3 (05:01→22:16)
[2023-11-27 06:06] LABS: Glucose - Point of Care 97 mg/dl (70-99)
--- NOTE | 2023-11-27 07:00 | PTCARENOTE ---
Bedside walking rounds report received. Patient seen on rounds oob in chair on 2L nasal canula. Titrated to room air. Awake alert and oriented x 3. Denies nausea. See flowrecord for pain management. NSR with pac's. Plan per ct surgery: dc elder and
dc mediastinal chest tube and place left pleural chest tube to bulb drain suction and insulate v wire. See flowrecord for remaining assessments.
[2023-11-27] MEDS: MYLICON 80 MG PO ×2 (07:05→14:57)
--- NOTE | 2023-11-27 07:43 | W.PN.ANS.POP ---
Anesthesia Post Operative
- Anesthesia Post Op Note
Vital Signs Stable-See Nursing Note: Yes
Airway Patent: Yes
Adequate Pain Control: Yes
Change in Mental Status: No
Current Postoperative Nausea & Vomiting: No
Anesthesia Complications: No
General Anesthetic Recall: No
Unplanned Admission: No
Post Op Hydration Adequate: Yes
[2023-11-27] MEDS: PROTONIX 40 MG PO (07:49)
[2023-11-27] MEDS: MAGNESIUM OXIDE 500 MG PO ×2 (07:49→19:49)
[2023-11-27] MEDS: LIDOCAINE 4% PATCH 1 PATCH TOPICAL (07:49)
[2023-11-27] MEDS: PLAVIX 75 MG PO (07:49)
[2023-11-27] MEDS: NEURONTIN 100 MG PO ×3 (07:50→22:17)
[2023-11-27] MEDS: PACERONE 200 MG PO ×4 (07:50→22:16)
[2023-11-27] MEDS: LOW STRENGTH ASPIRIN 81 MG PO (07:50)
[2023-11-27] MEDS: SENOKOT-S 1 TABLET PO ×2 (07:50→19:50)
[2023-11-27] MEDS: LOPRESSOR 12.5 MG PO (07:50)
[2023-11-27] MEDS: BACTROBAN 2% OINTMENT 1 APPLIC NASAL ×2 (07:51→19:51)
[2023-11-27 08:05] LABS: Glucose - Point of Care 82 mg/dl (70-99)
--- NOTE | 2023-11-27 09:22 | PN.CDI ---
Addendum entered and electronically signed by Herve Carrillo PA-C 11/27/23 15:09:
Pt with BMI 19 due to being underweight and cachectic.Newly diagnosed IDDM with A1c 11.7
Original Note:
CDI
- -
CDI:
Physician Documentation Request
Admit Date: 11/23/23 17:56
Dear Doctor Dorian/MAGUI .
Please review the following and provide your response in the progress notes.
Clinical Indicators:
Height: 5 ft 4 in
Weight:115 4.8 oz
BMI:19.8
Other Clinical Notes: Nutrition note 11/24, ' ...pt with no wt loss but eating poorly (recent family )....'
If possible, please provide an associated diagnosis related to the abnormal BMI, such as:
Underweight
Cachectic
- Other
Use of terms such as suspected, likely, concern for, or probable (associated with a specific diagnosis that is being evaluated, monitored, or treated as if it exists) are acceptable and can be coded in the inpatient setting, when documented at the
time of discharge.
Thank you,
Susan Florentino RN
CDI Specialist
[place] [facility]
Please use your independent medical judgment in providing your response.
[2023-11-27] MEDS: TYLENOL 650 MG PO (09:23)
[2023-11-27 09:54] LABS: Glucose - Point of Care 86 mg/dl (70-99)
--- NOTE | 2023-11-27 10:17 | CM ---
Reviewed chart. Telephone call to her insurance to check on co-pay for Farxiga 10 mg and Jardiance 10,g. Farxiga co-pay would be $60.00 a month or $180.00 for 90 days. Jardiance 10 mg co-pay is $30.00 a month or $90.00 for 90 day supply. If she
goes to a preferred pharmacy i.e [facility]. [facility] or [facility] her co-pay is $55.00 a month for Jardiance and 90 day $165.00. Jardiance preferred Pharmacy for Jardiance is $25.00 a month and 90 day $75.00 a month. She has commercial insurance and can use
the $10.00 a month coupon for Jardiance or Farxiga Zero co-pay coupon.
--- NOTE | 2023-11-27 10:30 | PTCARENOTE ---
Assisted back to bed after clear liquid tray breakfast: elder catheter dc and mediastinal chest tube sutures dc and mediastinal chest tube dc. Left pleural chest tube placed to bulb drain suction and epicardial v wire insulated: medtronic pacing box
placed closeby in room in event of an emergency.
[2023-11-27] MEDS: NICODERM TRANSDERMAL 21 MG TRANSDERM (10:40)
--- NOTE | 2023-11-27 11:59 | PN.DE.MGMTRT ---
Insulin Management
- -
11/27/2023 Diabetes Management Consult
Patient is POD 1 s/p CABG x 4. PMH active smoker. Patient states she has not been to a doctor since the , considers this a 'wake up call'. She is alert, oriented, resting in bed able to discuss diabetes management. Her daughter is at the
bedside and very supportive.
Patient is currently on critical care glycemic protocol infusion at .2 to 3 units per hour. Glucose 82 to 136. Will continue glycemic protocol until tomorrow and prepare to transition. Will provide patient and instruct on glucose monitor and
insulin administration. Patient is aware she will require insulin and is agreeable.
Diabetes History
- -
Type of Diabetes: 2
Pre-Admission Diabetes Regimen
11/26/23 11/27/23
16:01 03:11
Creatinine 0.5 L 0.5 L
Lab Results
Hemoglobin A1c 11.7 % (4.0-5.6) H 11/23/23 15:23
Insulin Pump Settings
IP Diabetes Regimen
11/26/23 11/26/23 11/26/23
16:01 16:04 17:41
Glucose 129 H
POC Glucose 159 H 153 H
11/26/23 11/26/23 11/26/23
18:38 20:15 21:54
Glucose
POC Glucose 136 H 94 84
11/27/23 11/27/23 11/27/23
00:07 01:57 03:11
Glucose 88
POC Glucose 115 H 125 H
11/27/23 11/27/23 11/27/23
04:06 06:05 08:02
Glucose
POC Glucose 93 97 82
11/27/23
09:51
Glucose
POC Glucose 86
Meal type: Breakfast
Amount consumed: 100%
Patient Education
[2023-11-27 12:12] LABS: Glucose - Point of Care 81 mg/dl (70-99)
--- NOTE | 2023-11-27 12:30 | PTCARENOTE ---
No acute changes. Assisted oob to chair. Room air.
--- NOTE | 2023-11-27 12:48 | W.PN.CD ---
Today's Communication / Plan
-
-No major events overnight.
-Remains in sinus rhythm on telemetry.
-Clinically stable; continue routine postoperative care as directed by CT Surgery.
Impression / Plan
-
STEMI S/P CABG x 4 (TIERNEY-Diag/LAD, SVG-OM, SVG-PDA & #35 PERLA clip) 11/26/[address] Alarcon
-Pre-EF 50-55%, post 65% without regional wall motion abnormality
-EKG with anterior infarct
-On admission EKG with inferior STEMI & anterolateral hypokinesis then emergent cardiac cath on 11/23/2023 ([facility]) with multivessel severe coronary disease
-Clinically stable; continue routine postoperative care as directed by CT Surgery.
Hyponatremia, nephrology following
HLD, goal LDL < 55, started on atorvastatin 80mg QPM
Hyperglycemia, Hgba1c 11.7%, started on insulin per Hospitalist
Current smoker, full cessation recommended
Subjective:
No major events overnight. Remains in sinus rhythm on telemetry.
Physical Exam
Vital Signs/Labs
Vital Signs
Temp Pulse Resp BP Pulse Ox
98.1 F 88 18 134/76 95
11/27/23 12:09 11/27/23 12:09 11/27/23 12:09 11/27/23 12:09 11/27/23 12:09
11/26/23 11/27/23 11/28/23
06:59 06:59 06:59
Actual Weight 52.6 kg 54 kg
11/27/23 03:11
11/27/23 03:11
PT 17.3 Sec (11.4-14.6) H 11/26/23 16:01
INR 1.43 11/26/23 16:01
APTT 31.9 Sec (23.4-35.0) 11/26/23 16:01
Magnesium 1.9 mg/dl (1.6-2.3) 11/27/23 03:11
Triglycerides 143 mg/dl (10-149) 11/24/23 02:25
LDL Cholesterol, Calc 79 mg/dl 11/24/23 02:25
VLDL Cholesterol, Calc 28 mg/dl (0-30) 11/24/23 02:25
HDL Cholesterol 61 mg/dl 11/24/23 02:25
TSH 0.46 uIU/ml (0.47-4.68) L 11/23/23 15:23
LAB Results
11/24/23
16:12
Troponin I 8.050 H*
Physical Exam
Constitutional: No acute distress and Comfortable
EENT: Anicteric
Cardiovascular: Rhythm & rate is regular, Pedal edema is absent, Systolic murmur absent and S1S2 is normal
Respiratory: Respiratory effort normal and Lungs clear to auscul.
GI: Soft
Neuro/Psych: AO x 3
Other: Skin (Warm, dry, intact)
Data Reviewed
-
Date of Service: November 27, 2023
EKG: Tracing Personally Visualized and interpreted (Telemetry: Sinus rhythm)
Medical Tests (PFT, Pathology etc): Discussed with Nurse and Discussed with Patient
Labs: Labs Reviewed by me
Critical Care Time (in minutes): 34
[2023-11-27 13:24] LABS: Glucose - Point of Care 74 mg/dl (70-99)
--- NOTE | 2023-11-27 13:56 | W.PN.NEPH.PH ---
Today's Communication / Plan
-
follow labs
Assessment/Plan
-
Assessment:
Inferior ST elevation DC s/p CABG 4 on 11/25
Multivessel CAD
Heart failure reduced ejection fraction
Hyponatremia
Diabetes mellitus type 2
Tobacco abuse
Plan:
Hyponatremia with U osmo of 171
improved with 3% saline on 11/24
now post op sodium is normal range
FR 48 ounces/day, if sodium stable can liberate restriction
EF improved to 65% post op
post op care per primary
will s/o, call with ?s
-
-
Date of Service: November 27, 2023
CC / HPI / ROS
-
Chief Complaint:
hyponatremia
History of Present Illness:
sodium improved to 139
s/p CABG x4 on 11/25
BP stable, off pressors
hb better post PRBC at 8.6
Review of Systems:
CP controlled
no sob
just started to eat
Labs
-
Labs:
WBC 12.4 10^3/uL (4.8-10.8) H 11/27/23 03:11
RBC 2.98 10^6/uL (4.20-5.40) L 11/27/23 03:11
Hgb 8.6 g/dL (12.0-16.0) L 11/27/23 03:11
Hct 25.7 % (37.0-47.0) L 11/27/23 03:11
Plt Count 397 10^3/uL (130-400) 11/27/23 03:11
Sodium 139 mmol/L (135-145) 11/27/23 03:11
Potassium 4.2 mmol/L (3.5-5.1) 11/27/23 03:11
Chloride 111 mmol/L (98-107) H 11/27/23 03:11
Carbon Dioxide 19 mmol/L (22-30) L 11/27/23 03:11
BUN 14 mg/dl (7-17) 11/27/23 03:11
Creatinine 0.5 mg/dL (0.6-1.0) L 11/27/23 03:11
eGFR > 60.00 11/27/23 03:11
Glucose 88 mg/dl (70-99) 11/27/23 03:11
Calcium 9.5 mg/dl (8.4-10.2) 11/27/23 03:11
Albumin 3.4 g/dl (3.5-5.0) L 11/25/23 05:48
Physical Exam
-
Vital Signs:
Vital Signs
Temp Pulse Resp BP Pulse Ox
98.1 F 88 18 134/76 95
11/27/23 12:09 11/27/23 12:09 11/27/23 12:09 11/27/23 12:09 11/27/23 12:09
Cardiovascular:: Regular rate and rhythm
Respiratory:: Bilateral: Coarse
Lung Excursion:: Normal
Abdomen:: Nontender and Soft
Extremity Edema:: None: Bilateral:
Su Catheter: Yes
[2023-11-27 14:39] LABS: Glucose - Point of Care 113 mg/dl (70-99)
--- NOTE | 2023-11-27 14:44 | W.PN.INTV ---
Today's Communication / Plan
Recommendations
Follow chest tube output
Daily chest x-ray
Follow H&H
Increase activity as able
Postoperative cardiac care
Sign off
Assessment
-
68-year-old woman admitted with chest pain. Found to have ST elevation myocardial infarction. Underwent catheterization that demonstrated multivessel coronary artery disease. Evaluated by CT surgery and she was deemed candidate for
revascularization. Underwent coronary artery bypass on 11/26/2023.
Status post coronary artery bypass 11/26/2023
Postoperative mechanical ventilation
Postoperative
Inferior ST elevation myocardial infarction-multivessel coronary toe disease
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
Conditions present prior admission:
Tobacco
Type 2 diabetes
Assessment and plan:
Doing well postoperative day 1
Extubated successfully
Wean FiO2 as able
Incentive spirometry encouraged
Increase activity as able
Anemia noted-no evidence of acute bleeding
Status post 1 unit of packed red blood cells per
Follow H&H serially, currently stable
Hemodynamics -off vasoactive drugs.
Good urinary output
Normal renal function.
Chest tube with no excessive drainage-no air leak.
Chest x-ray: Reviewed, no pneumothorax or fluid collection
Diet as tolerated
Head of the bed elevation
Glycemic control per protocol
DVT prophylaxis when safe from the surgical perspective.
No additional recommendation from the critical care perspective
Sign off
Subjective Dataa
Subjective Data
Date of Service:
Date of Service: November 27, 2023
Chief Complaint: Torch Brazer Follow Up (Status post coronary artery bypass)
Subjective:
No overnight events
Hemodynamically stable overnight
Pain is controlled
Review of Systems
General: Fever (n)
Cardiopulmonary: Dyspnea (n) and Cough (n)
GI: Abdominal Pain (n) and Nausea (n)
Objective Data
Data Reviewed
Vital Signs / I&O / Oxygen:
Vital Signs
Temp Pulse Resp BP Pulse Ox
98.1 F 88 18 134/76 95
11/27/23 12:09 11/27/23 12:09 11/27/23 12:09 11/27/23 12:09 11/27/23 12:09
Intake and Output
11/26/23 11/27/23 11/28/23
06:59 06:59 06:59
Intake Total 600 / 600 898.1 / 898.1 476.4 / 476.4
Output Total 1725 / 1725 100 / 100
Balance 600 / 600 -826.9 / -826.9 376.4 / 376.4
SaO2 [CPAP/PSV] 100
SaO2 [SIMV] 100
SaO2 95
Nasal Cannula flow liters per 2
minute
Physical Exam
General: Respiratory Distress (n) and Comfortable
HEENT: Normocephalic
Cardiovascular: S1-S2 and Regular Rhythm
Respiratory: Clear and Chest Tube (No significant air leak or excessive drainage.)
GI: Soft and Non Distended
Neurology: Awake
Labs/Micro/Reports
Lab Data
11/27/23 03:11
11/27/23 03:11
Laboratory Results
11/26/23 11/26/23
16:01 18:42
PT 17.3 H
INR 1.43
APTT 31.9
pH 7.42 7.39
pCO2 31 L 30 L
pO2 164 H 154 H
HCO3 20.1 L 18.2 L
O2 Delivery Level
Microbiology
11/26/23 12:30 Urine Urine Culture - Preliminary
Enterococcus species
[2023-11-27] MEDS: NSS IV (15:54)
--- NOTE | 2023-11-27 16:00 | PTCARENOTE ---
No acute changes NSR with pac's. Remains oob in chair on room air. IS use emphasized and reinforced with patient and daughter at bedside.
[2023-11-27 16:09] LABS: Glucose - Point of Care 123 mg/dl (70-99)
[2023-11-27] MEDS: LIPITOR 80 MG PO (17:10)
[2023-11-27 17:18] LABS: Glucose - Point of Care 104 mg/dl (70-99)
--- NOTE | 2023-11-27 18:30 | PTCARENOTE ---
Remains oob in chair. Ambulated to bathroom: voided moderate amount of urine. Placed back in bed
--- NOTE | 2023-11-27 19:16 | PTCARENOTE ---
Burst of afibb noted: less than 10 seconds: base rates NSR with PAC's rates in the 80's to 90's: Tapan Freed PA-C aware of same. New orders received.
[2023-11-27 19:21] LABS: Glucose - Point of Care 177 mg/dl (70-99)
[2023-11-27] MEDS: LOPRESSOR 25 MG PO (19:50)
[2023-11-27] MEDS: DILAUDID 0.25 MG IV (19:50)
--- NOTE | 2023-11-27 20:00 | PTCARENOTE ---
Resumed care of pt sitting up in bed AAOx3 with daughter at bedside. All questions answered. HR in the 80's in NSR with frequent PAC's on the monitor. Extra dose of Amiodarone administered as ordered. Pt reports sternal chest pain /, PRN pain
medication administered as ordered. Sternal incision with surg glue, open to air. V Wire in place. Left Pleural chest tube to bulb suction in place with dressing intact. POX 95% on RA. Lungs dec @ bases. hypo bowel, round abd. Pt denies any
complaints of gas pain at this time. Palpable peripheral pulses present. Left radial cath site dressing intact. Right inner knee incision open to air. Right wrist ecchymosis noted. Right IJ Cordis in place infusing NSS@10ml/hr, Insulin gtt per
glycemic protocol. Left AC int capped. Pt repositioned per comfort. Knee high seq in place. Sternal prec maintained. Will continue to monitor.
[2023-11-27 21:15] LABS: Glucose - Point of Care 129 mg/dl (70-99)
[2023-11-27 23:14] LABS: Glucose - Point of Care 87 mg/dl (70-99)
[2023-11-28] VITALS (22 sets, daily range): BP systolic 97–137; BP diastolic 54–88; PULSE 77; O2SAT 91–92; BMI 21.2
[2023-11-28 01:14] LABS: Glucose - Point of Care 103 mg/dl (70-99)
--- NOTE | 2023-11-28 01:22 | PTCARENOTE ---
Pt awake and ambulatory with assistance to bathroom. Pt voided without difficulty. Pt passed gas, no BM at this time. Pt assisted back to bed, sternal prec maintained. Pt repositioned per comfort. Pt reports pain at tolerable level at this time.
Insulin gtt infusing per glycemic protocol. Vital signs remains stable. No other changes in assessment noted at this time. Will continue to monitor.
[2023-11-28 03:13] LABS: Glucose - Point of Care 107 mg/dl (70-99)
[2023-11-28] MEDS: ROXICODONE 2.5 MG PO ×2 (03:23→21:07)
--- NOTE | 2023-11-28 04:30 | PTCARENOTE ---
Pt reports not sleeping well. Pt having difficulty getting in comfortable position. Knee high seq removed per pt request. Pt assisted with repositioning. Pt reports pain /. PRN Pain medication administered as ordered. Vital signs remain stable.
No other changes in assessment noted at this time. WIll continue to monitor.
[2023-11-28 04:59] LABS: Hematocrit 22.4 % (37.0-47.0); Hemoglobin 7.6 g/dL (12.0-16.0); Mean Corp Hgb Conc. 33.9 g/dL (33.0-37.0); Mean Corpuscular Hgb 28.8 pg (27.0-31.0); Mean Corpuscular Volume 84.8 fL (81.0-99.0); Mean Platelet Volume 9.4 fL (7.4-10.4); Platelet Count 408 10^3/uL (130-400); Red Blood Cell Count 2.64 10^6/uL (4.20-5.40); Red Cell Dist. Width 13.4 % (11.5-14.5)
[2023-11-28 05:10] LABS: Glucose - Point of Care 94 mg/dl (70-99)
[2023-11-28 05:50] LABS: Blood Urea Nitrogen 21 mg/dl (7-17); Calcium 8.8 mg/dl (8.4-10.2); Carbon Dioxide 25 mmol/L (22-30); Chloride 102 mmol/L (98-107); Estimated Creatinine Clearance 75 ml/min; Glucose 70 mg/dl (70-99); Magnesium 1.8 mg/dl (1.6-2.3); Potassium 4.1 mmol/L (3.5-5.1); Sodium 129 mmol/L (135-145); eGFR > 60.00
[2023-11-28] MEDS: TYLENOL 1000 MG PO ×3 (06:32→21:07)
--- NOTE | 2023-11-28 06:47 | W.PN.CT ---
Today's Communication / Plan
-
Plan:
-No major issues overnight. Hemodynamically and neurologically intact
-Noted to be tachycardic last night, Lopressor increased to 25 mg PO BID
-Cont. current meds (ASA, Plavix, Amiodarone, Lipitor, Lopressor)
-Consider d/c of remaining ches tube: L pl 50/70
-Tele when off insulin gtt today
-Diabetes management f/u given hgb A1C 11.7, newly diagnosed diabetes
-Maintain cordis another day
-Maintain temporary PW (will cut before d/c home)
-OOB into chair/Ambulate
-Encourage use of IS
-Monitor h/h 7.6/22.4, likely hemodiluted, wt up 8 lbs from preop, consider diuresis today
-Monitor hyponatremia, 129, was 139 yesterday. Chronically hyponatremic
-Home in 1-2 days
Assessment / Plan
-
Assessment:
-S/P Cabg x 4 (snow- diag/lad, svg - om, svg - pda)/revh/laal #35 clip, by Dr. Alarcon, 11/26/23, pod#2
-Severe 3v CAD
-Inferior STEMI
-USA
-ICM (EF 35-40%) per TTE 11/23/23; 55% pre and 65% postop per intraop CASSANDRA
-Active tobacco abuse
-Newly diagnosed T2DM on this admission (hgb A1C 11.7)
-Does not seek medical care
-Leukocytosis
-Thrombocytosis
-Hyponatremia (125)
-Anemia
-GERD
-Acute postop blood loss on preop Anemia (transfused 1u PRBC)
-Acute postop atelectasis
Discussed patient care with: Cardiology, Nursing, Respiratory Therapy, Pharmacy and Care Team
Subjective
Procedure
S/P Cabg x 4 (snow- diag/lad, svg - om, svg - pda)/revh/laal #35 clip, by Dr. Alarcon, 11/26/23
-
Date of Service: November 28, 2023
Pt c/o mild incisional pain, otherwise feels well
Objective Data
-
Lab Results
11/28/23 04:44
11/28/23 04:44
PT 17.3 Sec (11.4-14.6) H 11/26/23 16:01
INR 1.43 11/26/23 16:01
APTT 31.9 Sec (23.4-35.0) 11/26/23 16:01
Vital Signs
Vital Signs
Temp Pulse Resp BP Pulse Ox
98.2 F 85 20 125/72 91
11/28/23 04:00 11/28/23 05:00 11/27/23 19:43 11/28/23 05:00 11/28/23 05:00
CT Intake/Output/Weight
11/27/23 11/27/23 11/28/23
06:59 18:59 06:59
Intake Total 590.0 / 898.1 642.6 / 1242.6 600.0 / 1242.6
Output Total 1175 / 1725 160 / 240 80 / 240
Balance -585.0 / -826.9 482.6 / 1002.6 520.0 / 1002.6
SaO2: 92 (RA)
Physical Exam
-
General: Awake, Oriented and AOx3
Cardiovascular: Regular rate & rhythm, No Murmurs, No Rub and No Gallop
Respiratory: Decreased Breath Sounds
Incision: Clean, Dry, Intact and Dressing Intact
Extremities: Other (+trace edema)
Data Reviewed
-
Lab Results: Results Reviewed
Medications: Active Meds Reviewed
Chest X-Ray: Report Reviewed and Image Reviewed
ECG: Report Reviewed and Image Reviewed
[2023-11-28 07:08] LABS: Glucose - Point of Care 93 mg/dl (70-99)
--- NOTE | 2023-11-28 07:30 | PTCARENOTE ---
Received pt from shift boss RN; pt AAOx3 and resting comfortably in chair; NSR with PACs on monitor and VSS; Epicardial V wires insulated; RIJ Cordis and PIV x1 patent; Insulin infusing per Glycemic protocol see flow sheet for details; Lungs
diminished; IS to 750; CT x1 to bulb; positive bowel sounds; pt voiding clear yellow urine; palpable pulses throughout; no edema noted; surgical sites C/D/I; see nursing documentation for further details.
--- NOTE | 2023-11-28 07:37 | PN.DE.MGMTRT ---
Insulin Management
- -
11/28/2023 Diabetes Management F/U:
Patient is POD #2 s/p CABG x 4. PMH active smoker. Patient states she has not been to a doctor since the , considers this a 'wake up call'.
Pt is awake, alert, oriented, resting in bed, offers no complaints, able to discuss diabetes management. Her daughter is at the bedside and very supportive.
Patient remains on critical care glycemic protocol infusion at 0.3 to 1 unit per hour. Glucose 83 to 107.
Will continue glycemic protocol for now with plans to transition off drip at dinner time.
Give Lantus 8 units @ 17:00, turn drip off at 18:00. Start Metformin 500mg BID, 1st dose with dinner.
Start Jardiance 10mg daily, 1st dose tomorrow morning. Explained to pt that she will need to monitor her blood sugars at home and will require insulin at d/c.
Pt deferred glucose monitor and insulin instructions to tomorrow, states she did not sleep well last night and was hoping to get more rest. Will Will re-attempt tomorrow.
Diabetes History
- -
Type of Diabetes: 2 requiring insulin
Pre-Admission Diabetes Regimen
11/28/23
04:44
Creatinine 0.6
Lab Results
Hemoglobin A1c 11.7 % (4.0-5.6) H 11/23/23 15:23
Insulin Pump Settings
IP Diabetes Regimen
11/27/23 11/27/23 11/27/23
08:02 09:51 12:07
Glucose
POC Glucose 82 86 81
11/27/23 11/27/23 11/27/23
13:19 14:35 15:58
Glucose
POC Glucose 74 113 H 123 H
11/27/23 11/27/23 11/27/23
17:13 19:19 21:13
Glucose
POC Glucose 104 H 177 H 129 H
11/27/23 11/28/23 11/28/23
23:13 01:12 03:13
Glucose
POC Glucose 87 103 H 107 H
11/28/23 11/28/23 11/28/23
04:44 05:09 07:06
Glucose 70
POC Glucose 94 93
Meal type: Breakfast
Amount consumed: 100%
Patient Education
[2023-11-28] MEDS: NICODERM TRANSDERMAL 21 MG TRANSDERM (07:45)
[2023-11-28] MEDS: LOW STRENGTH ASPIRIN 81 MG PO (07:48)
[2023-11-28] MEDS: MAGNESIUM OXIDE 500 MG PO ×2 (07:48→21:10)
[2023-11-28] MEDS: PACERONE 200 MG PO ×3 (07:48→21:10)
[2023-11-28] MEDS: SENOKOT-S 1 TABLET PO ×2 (07:48→21:07)
[2023-11-28] MEDS: LIDOCAINE 4% PATCH 1 PATCH TOPICAL (07:48)
[2023-11-28] MEDS: NEURONTIN 100 MG PO ×3 (07:48→21:10)
[2023-11-28] MEDS: LOPRESSOR 25 MG PO ×2 (07:48→21:07)
[2023-11-28] MEDS: PLAVIX 75 MG PO (07:48)
[2023-11-28] MEDS: PROTONIX 40 MG PO (07:48)
[2023-11-28] MEDS: BACTROBAN 2% OINTMENT 1 APPLIC NASAL ×2 (07:49→21:06)
[2023-11-28] MEDS: LASIX 20 MG IV (08:06)
[2023-11-28] MEDS: KCL 10 MEQ PO (08:06)
[2023-11-28 09:08] LABS: Glucose - Point of Care 149 mg/dl (70-99)
--- NOTE | 2023-11-28 10:53 | W.PN.CD ---
Today's Communication / Plan
-
-Remains clinically stable from a cardiac standpoint.
-Continue current medications and routine postoperative care as directed by CT Surgery.
Impression / Plan
-
STEMI S/P CABG x 4 (TIERNEY-Diag/LAD, SVG-OM, SVG-PDA & #35 PERLA clip) 11/26/[address] Alarcon
-Pre-EF 50-55%, post 65% without regional wall motion abnormality
-EKG with anterior infarct
-On admission EKG with inferior STEMI & anterolateral hypokinesis then emergent cardiac cath on 11/23/2023 ([facility]) with multivessel severe coronary disease
-Remains clinically stable from a cardiac standpoint.
-Continue current medications and routine postoperative care as directed by CT Surgery.
Hyponatremia, nephrology following
HLD, goal LDL < 55, continue atorvastatin 80mg QPM
Hyperglycemia, Hgba1c 11.7%, started on insulin per Hospitalist
Current smoker, full cessation recommended
Subjective:
No major events overnight. No cardiac complaints this a.m. Remains in sinus rhythm on telemetry.
Physical Exam
Vital Signs/Labs
Vital Signs
Temp Pulse Resp BP Pulse Ox
97.6 F 78 18 104/74 96
11/28/23 08:00 11/28/23 10:00 11/28/23 10:12 11/28/23 09:52 11/28/23 10:12
11/27/23 11/28/23 11/29/23
06:59 06:59 06:59
Actual Weight 54 kg 55.9 kg
11/28/23 04:44
11/28/23 04:44
PT 17.3 Sec (11.4-14.6) H 11/26/23 16:01
INR 1.43 11/26/23 16:01
APTT 31.9 Sec (23.4-35.0) 11/26/23 16:01
Magnesium 1.8 mg/dl (1.6-2.3) 11/28/23 04:44
Triglycerides 143 mg/dl (10-149) 11/24/23 02:25
LDL Cholesterol, Calc 79 mg/dl 11/24/23 02:25
VLDL Cholesterol, Calc 28 mg/dl (0-30) 11/24/23 02:25
HDL Cholesterol 61 mg/dl 11/24/23 02:25
TSH 0.46 uIU/ml (0.47-4.68) L 11/23/23 15:23
Physical Exam
Constitutional: No acute distress and Comfortable
EENT: Anicteric
Cardiovascular: Rhythm & rate is regular, Pedal edema is absent, Systolic murmur absent and S1S2 is normal
Respiratory: Respiratory effort normal and Lungs clear to auscul.
GI: Soft
Neuro/Psych: AO x 3
Other: Skin (Warm, dry, intact)
Data Reviewed
-
Date of Service: November 28, 2023
EKG: Tracing Personally Visualized and interpreted (Telemetry: Sinus rhythm)
Labs: Labs Reviewed by me
Critical Care Time (in minutes): 32
[2023-11-28 11:02] LABS: Glucose - Point of Care 169 mg/dl (70-99)
--- NOTE | 2023-11-28 11:53 | PTCARENOTE ---
Assessment unchanged; NSR on monitor and VSS; pt resting comfortably in bed; Insulin infusing per Glycemic protocol see flow sheet for details.
--- NOTE | 2023-11-28 13:01 | CM ---
Reviewed chart. Met with Mrs. De La Vega to review discharge plans. She states she is feeling well. She ambulated 180 feet. She states prior to admission she resides with her spouse in a two story home with one step to enter. She states she has a
first floor set-up and does not need to go up to the second floor. She states prior to admission she was independent with ambulation and adls. She states her spouse will be home to assist in her care if needed. We reviewed a home visit by the
[facility]. She is agreeable to a home visit. Medical work-up in progress. The discharge plan is to return home with her spouse and a home visit by the Cardiothoracic Transitional Care Nurse when medically stable.
[2023-11-28 13:06] LABS: Glucose - Point of Care 106 mg/dl (70-99)
[2023-11-28] MEDS: NSS 500 IV (13:08)
[2023-11-28 15:13] LABS: Glucose - Point of Care 136 mg/dl (70-99)
--- NOTE | 2023-11-28 15:24 | PTCARENOTE ---
Assessment unchanged; NSR on monitor and VSS.
[2023-11-28] MEDS: GLUCOPHAGE 500 MG PO (17:04)
[2023-11-28] MEDS: LIPITOR 80 MG PO (17:04)
[2023-11-28] MEDS: LANTUS 0.0800000000000000017 UNITS SC (17:04)
[2023-11-28 17:07] LABS: Glucose - Point of Care 127 mg/dl (70-99)
[2023-11-28 17:55] LABS: Glucose - Point of Care 103 mg/dl (70-99)
[2023-11-28] MEDS: NOVOLOG FLEXPEN 4 UNITS SC (18:17)
--- NOTE | 2023-11-28 18:25 | PTCARENOTE ---
Insulin drip discontinued per order.
--- NOTE | 2023-11-28 20:00 | PTCARENOTE ---
PT AAOx4 w/o complaints of pain sitting in chair at bedside. NS on monitor VSS, RA 96% clear ls, GI passing gas & tolerating all meals, WNL, skin all surgical sights CDI, CT to bulb w/ [id number] output. see worklist for detailed assessment
[2023-11-29] VITALS (10 sets, daily range): BP systolic 108–148; BP diastolic 63–85; PULSE 81; O2SAT 94–96; BMI 21.7
--- NOTE | 2023-11-29 | PTCARENOTE ---
no change from previous assessment
--- NOTE | 2023-11-29 04:00 | PTCARENOTE ---
no change from previous assessment
[2023-11-29 05:17] LABS: Hematocrit 24.1 % (37.0-47.0); Hemoglobin 8.1 g/dL (12.0-16.0); Mean Corp Hgb Conc. 33.6 g/dL (33.0-37.0); Mean Corpuscular Volume 86.4 fL (81.0-99.0); Mean Platelet Volume 9.7 fL (7.4-10.4); Platelet Count 439 10^3/uL (130-400); Red Blood Cell Count 2.79 10^6/uL (4.20-5.40); Red Cell Dist. Width 13.1 % (11.5-14.5); White Blood Cell Count 13.8 10^3/uL (4.8-10.8)
[2023-11-29 05:30] LABS: Blood Urea Nitrogen 19 mg/dl (7-17); Calcium 8.4 mg/dl (8.4-10.2); Carbon Dioxide 22 mmol/L (22-30); Chloride 98 mmol/L (98-107); Estimated Creatinine Clearance 76 ml/min; Glucose 79 mg/dl (70-99); Magnesium 1.7 mg/dl (1.6-2.3); Potassium 4.6 mmol/L (3.5-5.1); Sodium 125 mmol/L (135-145); eGFR > 60.00
[2023-11-29] MEDS: TYLENOL 1000 MG PO ×3 (06:15→21:52)
[2023-11-29] MEDS: ROXICODONE 2.5 MG PO (06:15)
--- NOTE | 2023-11-29 07:09 | W.PN.CT ---
Today's Communication / Plan
-
-pod #3
-doing well, on RA pOx 97%, no complaints
-L pleur CT output 70/165 in 12/24 hrs
-wt up 8 lbs from preop - diuresed with 20 iv Lasix on 11/27 (UO 500)- continue
-follow h/h - 8.1/24.1 today (7.6/22.4 on 11/27, 8.6/25.7 on 11/26)
-follow Na- 125 today (129 on 11/27 and 139 on 11/26)- fluid restr. 48 oz
-current meds (ASA, Plavix, Lipitor, Lopressor 25 bid, Amio, Protonix, Lantus, Metformin, Jardiance to start 11/28)
-appreciate everyone's input
-encourage IS, OOB, ambulate
Assessment / Plan
-
Assessment:
-S/P Cabg x 4 (snow- diag/lad, svg - om, svg - pda)/revh/laal #35 clip, by Dr. Alarcon, 11/26/23, pod#3
-Severe 3v CAD
-Inferior STEMI
-USA
-ICM (EF 35-40%) per TTE 11/23/23; 55% pre and 65% postop per intraop CASSANDRA
-Active tobacco abuse
-Newly diagnosed T2DM on this admission (hgb A1C 11.7)
-Does not seek medical care
-Leukocytosis
-Thrombocytosis
-Hyponatremia (125)
-Anemia
-GERD
-Acute postop blood loss on preop Anemia (transfused 1u PRBC)
-Acute postop atelectasis
-Acute postop hypovolemia with subsequent hypervolemia
-Acute postop hyponatremia
Discussed patient care with: Nursing and Care Team
Subjective
Procedure
S/P Cabg x 4 (snow- diag/lad, svg - om, svg - pda)/revh/laal #35 clip, by Dr. Alarcon, 11/26/23
-
Date of Service: November 29, 2023
Objective Data
-
PT 17.3 Sec (11.4-14.6) H 11/26/23 16:01
INR 1.43 11/26/23 16:01
APTT 31.9 Sec (23.4-35.0) 11/26/23 16:01
Vital Signs
Vital Signs
Temp Pulse Resp BP Pulse Ox
98.4 F 89 18 137/82 97
11/28/23 21:28 11/28/23 21:28 11/28/23 21:28 11/28/23 21:11 11/28/23 21:28
CT Intake/Output/Weight
11/28/23 11/28/23 11/29/23
06:59 18:59 06:59
Intake Total 600.0 / 1253.0 134.8 / 134.8
Output Total 80 / 240 595 / 825 230 / 825
Balance 520.0 / 1013.0 -460.2 / -690.2 -230 / -690.2
SaO2: 97
Physical Exam
-
General: Awake and AOx3
Cardiovascular: Regular rate & rhythm, No Murmurs and No Rub
Respiratory: Decreased Breath Sounds
Sternum: Stable
Incision: Clean, Dry and Intact
Extremities: No Edema (2+ DP b/l )
Abdomen: soft, nontender, + bowel sounds, nondistended
Data Reviewed
-
Medications: Active Meds Reviewed
Chest X-Ray: Report Reviewed and Image Reviewed
ECG: Report Reviewed and Image Reviewed
--- NOTE | 2023-11-29 07:23 | PTCARENOTE ---
Received pt from milliner helper RN; pt AAOx3 and resting comfortably in chair; NSR on monitor and VSS; Epicardial V wire insulated; RIJ Cordis and PIV x1 patent; Lungs diminished with fine crackles in right base, CVNP updated; IS to 1000; CT x1 to
bulb; positive bowel sounds; pt voiding clear yellow urine; palpable pulses throughout; no edema noted; surgical sites C/D/I; see nursing documentation for further details.
[2023-11-29 07:25] LABS: Glucose - Point of Care 98 mg/dl (70-99)
[2023-11-29] MEDS: JARDIANCE 10 MG PO (07:41)
[2023-11-29] MEDS: PROTONIX 40 MG PO (07:41)
[2023-11-29] MEDS: PACERONE 200 MG PO ×3 (07:41→21:52)
[2023-11-29] MEDS: MAGNESIUM OXIDE 500 MG PO ×2 (07:41→20:21)
[2023-11-29] MEDS: SENOKOT-S 1 TABLET PO ×2 (07:41→20:22)
[2023-11-29] MEDS: LIDOCAINE 4% PATCH 1 PATCH TOPICAL (07:41)
[2023-11-29] MEDS: NEURONTIN 100 MG PO ×3 (07:41→21:53)
[2023-11-29] MEDS: GLUCOPHAGE 500 MG PO ×2 (07:41→17:11)
[2023-11-29] MEDS: LOPRESSOR 25 MG PO ×2 (07:41→20:22)
[2023-11-29] MEDS: PLAVIX 75 MG PO (07:41)
[2023-11-29] MEDS: BACTROBAN 2% OINTMENT 1 APPLIC NASAL ×2 (07:42→20:21)
[2023-11-29] MEDS: NICODERM TRANSDERMAL 21 MG TRANSDERM (07:42)
[2023-11-29] MEDS: LOW STRENGTH ASPIRIN 81 MG PO (07:42)
--- NOTE | 2023-11-29 08:03 | PN.DE.MGMTRT ---
Insulin Management
- -
11/29/2023 Diabetes Management Follow up:
Patient is POD #3 s/p CABG x 4. PMH active smoker. Patient states she has not been to a doctor since the s, considers this a 'wake up call'.
Pt is awake, alert, oriented, oo bed in chair, offers no complaints, able to discuss diabetes management. Her daughter is at the bedside and very supportive.
Transitioned from critical care glycemic protocol ~ dinner time. Received 8 units lantus, 500 mg metformin. Fasting glucose this AM 79 venous.
To start Jardiance 10mg daily, with 500 mg metformin BID. Will stop HS lantus and AC novolog. Diet changed to include calorie requirement, 1600. Will assess for need for AC novolog.
Discussed with patient we will observe glucose today, may require lantus with oral medications if glucose not in range.
Lucy CROWE, [facility] at bedside instructing on use of Contour next meter.
Diabetes History
- -
Type of Diabetes: 2 requiring insulin
Pre-Admission Diabetes Regimen
11/29/23
04:46
Creatinine 0.6
Lab Results
Hemoglobin A1c 11.7 % (4.0-5.6) H 11/23/23 15:23
Insulin Pump Settings
IP Diabetes Regimen
11/28/23 11/28/23 11/28/23
09:05 11:00 13:01
Glucose
POC Glucose 149 H 169 H 106 H
11/28/23 11/28/23 11/28/23
15:10 17:03 17:53
Glucose
POC Glucose 136 H 127 H 103 H
11/29/23 11/29/23
04:46 07:22
Glucose 79
POC Glucose 98
Meal type: Dinner
Meal type: Breakfast
Amount consumed: 100%
Amount consumed: 100%
Patient Education
[2023-11-29] MEDS: LASIX 40 MG IV (08:19)
[2023-11-29] MEDS: NOVOLOG FLEXPEN 4 UNITS SC (08:21)
--- NOTE | 2023-11-29 10:14 | PTCARENOTE ---
RIJ Cordis and Left Pleural Chest Tube removed per CVNP order.
--- NOTE | 2023-11-29 11:06 | PTCARENOTE ---
Diabetes Education- New diagnosis T2DM for Pamela, has not seen a PCP in years. Daughter, Bella at bedside.Provided with and instructions given on Contour NExt Gen glucometer, result 160 mg/dl, 2 1/2 hr post B. Aware of proper testing technique,
testing pattern (2x/day), testing sites and expected results. Information marked in take home education booklet. Discussed action and side effects of both Metformin and Jardiance. Will follow up tomorrow and include insulin instructions if needed.
Updates to SEBASTIEN Castillo.
--- NOTE | 2023-11-29 12:45 | PTCARENOTE ---
Received patient from prior shift. Pt assessment completed, see documentation in medical record. Pt education initiated about ISB use, cough and deep breathing with the heart pillow, mobility, nutrition, pain management, sternal precautions and rest
periods. Pt asked to demonstrate ISB, and patient education completed to correct technique. Pt demonstrated understanding of education using the teach back method. Proper technique with the incentive spirometer will be reinforced, and patient
instructed to use the ISB ten times per hour (minimum). Medication education including medication side effects provided for all medications prior to administering. Pt sitting in the chair and resting comfortably. Medication education will be
reinforced throughout the day. IV site flushed and patent. Pt ambulates to the bathroom independently.
[2023-11-29 12:51] LABS: Glucose - Point of Care 201 mg/dl (70-99)
[2023-11-29] MEDS: NOVOLOG FLEXPEN-LOW RESISTANCE 2 UNITS SC (12:54)
--- NOTE | 2023-11-29 15:00 | PTCARENOTE ---
Pt education reinforced regarding pain management. Pt instructed about the pain management goal to achieve a pain scale of 3 out of 10 pain or less. Pt education provided about pain medications and nonpharmaceutical pain management including
repositioning, rest, distraction, massage, imagery, hot or cold therapy, and exercise. Pt demonstrated an understanding of education using the teach back method. Smoking cessation education provided.
[2023-11-29] MEDS: NSS IV (15:15)
--- NOTE | 2023-11-29 15:36 | PTCARENOTE ---
Patient education completed regarding DVT prevention in the post operative period and the risk for PE and/or stroke. Pt instructed about frequent movement, frequent ankle pumps, and the need to increase activity during recovery and after discharge.
Fall risk prevention reinforced, and pt instructed not to get up from the chair or bed without the assistance of the nurse. Pt demonstrated an understanding of education using the teach back method. Call gibbons in reach of patient at all times.
--- NOTE | 2023-11-29 15:56 | W.PN.CD ---
Today's Communication / Plan
-
- Continue BB
- Start Jardiance
- Continue ASA, Plavix, Lipitor, Lopressor 25 bid, Amio
Impression / Plan
-
STEMI S/P CABG x 4 (TIERNEY-Diag/LAD, SVG-OM, SVG-PDA & #35 PERLA clip) 11/26/[address] Alarcon
-Pre-EF 50-55%, post 65% without regional wall motion abnormality
-EKG with anterior infarct
-On admission EKG with inferior STEMI & anterolateral hypokinesis then emergent cardiac cath on 11/23/2023 ([facility]) with multivessel severe coronary disease
-Remains clinically stable from a cardiac standpoint.
-Continue current medications and routine postoperative care as directed by CT Surgery.
Hyponatremia, nephrology following
HLD, goal LDL < 55, continue atorvastatin 80mg QPM
Hyperglycemia, Hgba1c 11.7%, started on insulin per Hospitalist
Current smoker, full cessation recommended
Subjective:
No major events overnight. No cardiac complaints this a.m. Remains in sinus rhythm on telemetry.
Physical Exam
Vital Signs/Labs
Vital Signs
Temp Pulse Resp BP Pulse Ox
97.9 F 88 16 140/82 96
11/29/23 08:00 11/29/23 15:47 11/29/23 08:00 11/29/23 15:47 11/29/23 09:35
11/28/23 11/29/23 11/30/23
06:59 06:59 06:59
Actual Weight 55.9 kg 57.2 kg
11/29/23 04:46
11/29/23 04:46
PT 17.3 Sec (11.4-14.6) H 11/26/23 16:01
INR 1.43 11/26/23 16:01
APTT 31.9 Sec (23.4-35.0) 11/26/23 16:01
Magnesium 1.7 mg/dl (1.6-2.3) 11/29/23 04:46
Triglycerides 143 mg/dl (10-149) 11/24/23 02:25
LDL Cholesterol, Calc 79 mg/dl 11/24/23 02:25
VLDL Cholesterol, Calc 28 mg/dl (0-30) 11/24/23 02:25
HDL Cholesterol 61 mg/dl 11/24/23 02:25
TSH 0.46 uIU/ml (0.47-4.68) L 11/23/23 15:23
Physical Exam
Constitutional: No acute distress and Comfortable
EENT: Anicteric and Moist mucous membranes
Cardiovascular: Rhythm & rate is regular, JVD present and Systolic murmur present
Respiratory: Respiratory effort normal and Wheeze Absent
GI: Soft
Neuro/Psych: Alert and AO x 3
Other: Skin
Data Reviewed
-
Date of Service: November 29, 2023
Medical Decision Making: Reviewed Test Results and Test Interpretation
EKG: Tracing Personally Visualized and interpreted
Echo: Report Reviewed by me
Labs: Labs Reviewed by me
Old Records: Reviewed
--- NOTE | 2023-11-29 16:00 | PTCARENOTE ---
Prior patient assessment remains unchanged. Pt resting comfortably in the chair. Heart sounds S1S2 and lungs clear. Pain remains controlled at a 3 out of 10. Pt using ISB every hour, and ISB technique has improved. Pt has ambulated in the hallway
with her Demonstrates proper sternal precautions and heart pillow use.
[2023-11-29] MEDS: LIPITOR 80 MG PO (17:11)
[2023-11-29] MEDS: NOVOLOG FLEXPEN-LOW RESISTANCE 1 UNITS SC (17:15)
[2023-11-29 17:17] LABS: Glucose - Point of Care 167 mg/dl (70-99)
--- NOTE | 2023-11-29 18:39 | PTCARENOTE ---
Pt education completed about the modifiable and non-modifiable risk factors for CAD. Education included emphasis on modifiable risk factors like high BP, high blood cholesterol levels, smoking, diabetes, lack of physical activity, unhealthy diet and
stress. Specific risk factors that apply to the patient were discussed including smoking cessation, stress, and glucose management. Pt demonstrated understanding of the the education with the teach back method.
--- NOTE | 2023-11-29 20:20 | PTCARENOTE ---
Prior assessment remains unchanged. Heart and lung sounds unchanged. Pt continues to increase activity level. Infection prevention education provided including hand hygiene, incision care at home, and signs/symptoms of infection.
--- NOTE | 2023-11-29 20:30 | PTCARENOTE ---
Pt complained of 6/10 pain and due for neurontin and tylenol soon. Discussed with pt and given flexeril for discomfort.
[2023-11-29] MEDS: FLEXERIL 5 MG PO (20:35)
[2023-11-29] MEDS: MILK OF MAGNESIA 30 ML PO (20:36)
--- NOTE | 2023-11-29 22:21 | PTCARENOTE ---
Pt is assigned videos to watch, but she has not turned on her TV at all today. She usually talks on the phone or uses ipad. Pt encouraged to watch the videos assigned.
--- NOTE | 2023-11-30 00:12 | PTCARENOTE ---
Pt reports her pain is less than 3/10. Sleeping soundly (until vital signs were just taken).
--- NOTE | 2023-11-30 00:30 | PTCARENOTE ---
assumed care of patient, report received from previous RN. pt sleeping. VSS.
--- NOTE | 2023-11-30 05:10 | W.PN.CT ---
Addendum entered and electronically signed by Oneil Velazquez PA-C 12/03/23 11:32:
Additional assessment:
Acute on Chronic Diastolic CHF, with reduced EF.
Original Note:
Today's Communication / Plan
-
-pod #4
-looks and feels better overall, ambulates
-diuresed well with 40 iv Lasix on 11/28 (UO 3000), feels less SOB
-labs pending
-will cut pw prior to d/c
-possible d/c soon
Assessment / Plan
-
Assessment:
-S/P Cabg x 4 (snow- diag/lad, svg - om, svg - pda)/revh/laal #35 clip, by Dr. Alarcon, 11/26/23, pod#4
-Severe 3v CAD
-Inferior STEMI
-USA
-ICM (EF 35-40%) per TTE 11/23/23; 55% pre and 65% postop per intraop CASSANDRA
-Active tobacco abuse
-Newly diagnosed T2DM on this admission (hgb A1C 11.7)
-Does not seek medical care
-Leukocytosis
-Thrombocytosis
-Hyponatremia (125)
-Anemia
-GERD
-Acute postop blood loss on preop Anemia (transfused 1u PRBC)
-Acute postop atelectasis
-Acute postop hypovolemia with subsequent hypervolemia
-Acute postop hyponatremia
Discussed patient care with: Nursing and Care Team
Subjective
Procedure
S/P Cabg x 4 (snow- diag/lad, svg - om, svg - pda)/revh/laal #35 clip, by Dr. Alarcon, 11/26/23
-
Date of Service: November 30, 2023
Objective Data
-
PT 17.3 Sec (11.4-14.6) H 11/26/23 16:01
INR 1.43 11/26/23 16:01
APTT 31.9 Sec (23.4-35.0) 11/26/23 16:01
Vital Signs
Vital Signs
Temp Pulse Resp BP Pulse Ox
98.2 F 86 15 140/85 95
11/29/23 23:16 11/30/23 01:00 11/29/23 23:16 11/29/23 23:14 11/30/23 00:30
CT Intake/Output/Weight
11/29/23 11/29/23 11/30/23
06:59 18:59 06:59
Intake Total 520 / 720 200 / 720
Output Total 270 / 865 3000 / 3550 550 / 3550
Balance -270 / -730.2 -2480 / -2830 -350 / -2830
SaO2: 95
Physical Exam
-
General: Awake and AOx3
Cardiovascular: Regular rate & rhythm, No Murmurs and No Rub
Respiratory: Clear and Decreased Breath Sounds
Sternum: Stable
Incision: Clean, Dry and Intact
Extremities: No Edema
Data Reviewed
-
Lab Results: Results Reviewed
Medications: Active Meds Reviewed
Chest X-Ray: Report Reviewed and Image Reviewed
ECG: Report Reviewed and Image Reviewed
[2023-11-30 05:41] VITALS: BP 153/87
[2023-11-30 05:42] VITALS: BP 160/88
[2023-11-30] MEDS: TYLENOL 1000 MG PO (05:58)
[2023-11-30 05:59] VITALS: BMI 20.4
[2023-11-30 07:53] VITALS: BP 128/77
[2023-11-30] MEDS: BACTROBAN 2% OINTMENT 1 APPLIC NASAL (08:00)
--- NOTE | 2023-11-30 08:00 | PTCARENOTE ---
Assumed care of patient from rooms director RN. AAO x 3. States she is feeling 'irritable ' from not smoking, requesting nicotine patch. Otherwise, doing well, SR on monitor. Epicardial V wire insulated. Sternal incision well approximated with
glue. Room air 96%. IS to 750 . Abdomen with bowel sounds. Voiding w/o issue. Pulses palpable. No edema appreciated. Plan for day discussed.
[2023-11-30] MEDS: PROTONIX 40 MG PO (08:01)
[2023-11-30] MEDS: NICODERM TRANSDERMAL 21 MG TRANSDERM (08:01)
[2023-11-30] MEDS: PLAVIX 75 MG PO (08:01)
[2023-11-30] MEDS: NEURONTIN 100 MG PO (08:01)
[2023-11-30] MEDS: LOW STRENGTH ASPIRIN 81 MG PO (08:01)
[2023-11-30] MEDS: LOPRESSOR 25 MG PO (08:01)
[2023-11-30] MEDS: SENOKOT-S 1 TABLET PO (08:01)
[2023-11-30] MEDS: PACERONE 200 MG PO (08:01)
[2023-11-30] MEDS: MAGNESIUM OXIDE 500 MG PO (08:01)
[2023-11-30] MEDS: JARDIANCE 10 MG PO (08:01)
[2023-11-30] MEDS: GLUCOPHAGE 500 MG PO (08:01)
[2023-11-30] MEDS: LIDOCAINE 4% PATCH TOPICAL (08:02)
--- NOTE | 2023-11-30 08:23 | PN.CDI ---
CDI
- -
CDI:
Physician Documentation Request
Admit Date: 11/23/23 17:56
Dear Doctor Dorian/MAGUI,
Please review the following and provide your response in the progress notes.
Clinical Indicators:
Pt admitted with STEMI /CAD S/P CABG x4 /PERLA on 11/25
Documented per Nephrology consult 11/24, ' Heart failure reduced ejection fraction...She may also benefit from long-term Lasix use. ...'
ECHO Preop 11/22, ' Normal LV size with moderately reduced systolic function.LVEF is 35 to 40% by visual estimation....'
ECHO 11/25 post CABG, ' Overall LVEF is approximately 55%...Stage II Diastolic dysfunction. ....'
Progress note 11/27, ' -wt up 8 lbs from preop - diuresed with 20 iv Lasix on 11/27 (UO 500)- continue....-Acute postop hypovolemia with subsequent hypervolemia... Decreased Breath Sounds...'
Cardiology note 11/28 ,' JVD present and Systolic murmur present..'
Progress note 11/29 , 'diuresed well with 40 iv Lasix on 11/28 (UO 3000), feels less SOB....-ICM (EF 35-40%) per TTE 11/23/23; 55% pre and 65% postop per intraop CASSANDRA...Acute postop hypovolemia with subsequent hypervolemia...'
Please provide a diagnosis for the above treatment of IV Lasix :
Acute Diastolic CHF
Hypervolemia only with Chronic Diastolic CHF only
Other
Use of terms such as suspected, likely, concern for, or probable (associated with a specific diagnosis that is being evaluated, monitored, or treated as if it exists) are acceptable and can be coded in the inpatient setting, when documented at the
time of discharge.
Thank you,
Susan Florentino RN
CDI Specialist
[place] [facility]
Please use your independent medical judgment in providing your response.
[2023-11-30 08:26] LABS: Hematocrit 28.1 % (37.0-47.0); Hemoglobin 9.5 g/dL (12.0-16.0); Mean Corp Hgb Conc. 33.8 g/dL (33.0-37.0); Mean Corpuscular Hgb 28.6 pg (27.0-31.0); Mean Corpuscular Volume 84.6 fL (81.0-99.0); Mean Platelet Volume 9.2 fL (7.4-10.4); Platelet Count 620 10^3/uL (130-400); Red Blood Cell Count 3.32 10^6/uL (4.20-5.40); Red Cell Dist. Width 13.1 % (11.5-14.5); White Blood Cell Count 14.4 10^3/uL (4.8-10.8)
[2023-11-30 08:58] LABS: Blood Urea Nitrogen 17 mg/dl (7-17); Calcium 8.9 mg/dl (8.4-10.2); Carbon Dioxide 21 mmol/L (22-30); Chloride 98 mmol/L (98-107); Estimated Creatinine Clearance 75 ml/min; Glucose 206 mg/dl (70-99); Magnesium 2.1 mg/dl (1.6-2.3); Potassium 4.6 mmol/L (3.5-5.1); Sodium 129 mmol/L (135-145); eGFR > 60.00
[2023-11-30] MEDS: LOPRESSOR 12.5 MG PO (09:10)
[2023-11-30] MEDS: NOVOLOG FLEXPEN-LOW RESISTANCE SC (09:10)
--- NOTE | 2023-11-30 09:20 | W.DCSUMMARY ---
Discharge Summary
Discharge Data
Date of Admission: 11/23/23
Date of Discharge: 11/30/23
Total time spent discharging patient (in min): 40
-
Pending Results: Yes
Hospital Course
Primary care physician:
None
Outpatient supervisor fryer farm:
Done
Inpatient consultants:
DCA, street light mechanic, DM management, nephrology, anesthesia
Procedures:
1. Coronary artery bypass grafting x 4 and left atrial appendage clip
Primary Diagnosis:
1. Coronary artery disease
2. ST elevation myocardial infarction
Secondary Diagnoses:
1. Diabetes mellitus type 2
2. Hyperlipidemia
HPI: 68-year-old female presenting with multiple days of chest pain after her father . EKG in the ER showed an inferior wall STEMI. Left heart cath confirmed multivessel disease and patient was taken to the CV OR on 11/25.
Hospital course: Patient was admitted on 11/22 for chest pain and CABG eval. Preoperative workup underway and patient was taken to the CV OR on 11/[address] Alarcon. She returned to the CVICU on Levophed, Precedex, insulin, and intermittent
nitro for blood pressure control. She was found to be anemic with a hemoglobin of 6.7 and was given 1 unit of packed red blood cells. Precedex was weaned off and patient was extubated by 1914. On 11/26 postoperative day #1 mediastinal chest tube
and Su catheter was removed metoprolol, aspirin and Plavix were started for the patient. Patient ambulated and was started on a nicotine patch. On 11/27 postoperative day #2 patient was given 20 mg of IV Lasix. Beta-blockers were increased due
to tachycardia and hypotension. Diabetes management started her on oral antidiabetics along with sliding scale and Lantus and insulin drip was transitioned off. On 11/28 postoperative day #3 patient was diuresed again with 40 mg of IV Lasix.
Remaining chest tube and right IJ cordis were removed. On 11/29 postoperative day #4 two-view chest x-ray remained stable wires were cut without issue and patient was deemed stable for discharge.
Home medication changes:
See below
Discharge Plan
-
Patient Disposition: Home (Routine Discharge)
Discharge Diagnosis/Procedures: CABG
Condition: Good
Diet: Low Cholesterol, Low Sodium and Diabetic, Carb Controlled
Activity: No strenuous activity
Driving Restrictions: Not until seen by your Dr
Bathing Restrictions: OK to Shower
Other Services: Cardiac Rehab
Specialty Instructions: Weigh Daily- Call MD for wt gain/loss 3 lbs overnight/5 lbs in 1 week
Activity Restrictions/Additional Instructions:
ACTIVITY:
-No strenuous activity: no heavy lifting, pushing, pulling anything over 15 pounds for one month
-continue to use stairs as tolerated
DRIVING RESTRICTIONS:
-No driving for one month or until approved by your surgeon
WOUND CARE:
-Shower daily. Use soap & water.
-No lotions, creams or powders on incision area.
DIET:
-continue a low fat/low cholesterol diet.
-IF you are diabetic, continue carb controlled diet.
CARDIAC REHAB:
-Please make appointment to start in 5-6 weeks with your local hospital program. (See Cardiac Rehabilitation Discharge Booklet).
SPECIALTY INSTRUCTIONS:
-Weigh yourself daily. Call your physician for any weight gain/loss of 3 lbs overnight or 5 lbs in one week.
-REPORT any clicking noise or uneven appearance of your sternum to your surgeon immediately.
-If you smoke, you are instructed to quit. The [place] smoking hotline phone number is [phone]
Referrals:
CT Transitional Care Nurse [Outside] - in one to two days
(
The Cardiothoracic Transitional Care Nurse will call you to set up a visit in 1-2 days.)
[facility]. Cardiac Rehab [Outside] - 01/01/24 1:00 pm
(Cardiac Rehab Orientation appointment is on Sunday01/01/24 at 1PM
The Cardiac Rehab gym is located on the first floor of the [facility].)
Janette Lawton NP [Specified Professional Personl] - 01/14/24 11:00 am
Connor Alarcon MD [Active] - 12/31/23 10:30 am
Prescriptions:
New
metformin 500 mg Tablet
500 mg PO BID@0800,1700 Qty: 60 0RF
Jardiance 10 mg Tablet
10 mg PO DAILY Qty: 60 1RF
atorvastatin 80 mg Tablet
80 mg PO QPM Qty: 90 1RF
clopidogrel 75 mg Tablet
75 mg PO DAILY Qty: 90 3RF
pantoprazole 40 mg Tablet,Delayed Release (Dr/Ec)
40 mg PO DAILY Qty: 90 3RF
aspirin [Children's Aspirin] 81 mg Tablet,Chewable
81 mg PO DAILY Qty: 0 0RF
metoprolol tartrate 25 mg Tablet
37.5 mg PO Q12 Qty: 90 0RF
acetaminophen [Tylenol Extra Strength] 500 mg Tablet
1,000 mg PO Q8 PRN (Reason: mild to moderate pain) Qty: 0 0RF
Discharge Orders:
Discharge Patient (As Directed); Ordered 11/30/23
Ordered By: Katerine Huerta
Care Plan Goals
Care Plan Goals:
Problem: Readiness for enhanced knowledge related to diagnosis and treatment plan
Goal: Understand your diagnosis and treatment plan needs, including medications if applicable.
Instructions: Know your diagnosis, underlying causes and treatment plan options, including medications if applicable. Consult with your health care team to learn about your diagnosis and treatment plan, including medications if applicable.
Discharge Date and Time
Print Language: PORTUGUESE
--- NOTE | 2023-11-30 10:01 | PTCARENOTE ---
Pt refusing shower prior to discharge. Pt highly encouraged.
[2023-11-30 10:22] VITALS: BP 121/77; BP 97/84; PULSE 73; O2SAT 96; O2SAT 98
--- NOTE | 2023-11-30 10:23 | PTCARENOTE ---
Diabetes Education- Follow up on [employer] glucometer instructions. Pamela able to correctly demonstrate use of lancing device and meter to perform POC fingerstick. Reslt 236 mg/dl, 2 hr PP (OJ, raisin bran cereal, milk, yogurt). She is aware
that this has very little protein and suggest reducing CHO intake. Will send information on outpt DSME classes. She has the education booklet with phone number for any follow up questions.
--- NOTE | 2023-11-30 11:10 | PTCARENOTE ---
Discharge instructions reviewed with patient and daughter. Questions answered, PUNCH HAND asked for gabapentin rx per pt request. INt and telemetry pack removed. Pt wheeled to car by volunteer.
== END 2023-11-30 11:08 | disposition home or self-care (01) | DRG 233 ==
LOC: CVICU 17:56
PROVIDERS: Clinical Nurse Specialist Acute Care; Emergency Medicine; Hospitalist; Nurse Practitioner; ADMITTING PHYSICIAN Internal Medicine Interventional Cardiology; ATTENDING PHYSICIAN Thoracic Surgery (Cardiothoracic Vascular Surgery); CONSULT PHYSICIAN Internal Medicine Critical Care Medicine; CONSULT PHYSICIAN Specialist; EMERGENCY PHYSICIAN Emergency Medicine; OTHER PHYSICIAN Internal Medicine Cardiovascular Disease
PROC: 4A023N7 Measurement of Cardiac Sampling and Pressure, Left Heart, Percutaneous Approach (ICD-10-PCS; 2023-11-23)
PROC: B2151ZZ Fluoroscopy of Left Heart using Low Osmolar Contrast (ICD-10-PCS; 2023-11-23)
PROC: B2111ZZ Fluoroscopy of Multiple Coronary Arteries using Low Osmolar Contrast (ICD-10-PCS; 2023-11-23)
PROC: B24BZZ4 Ultrasonography of Heart with Aorta, Transesophageal (ICD-10-PCS; 2023-11-26)
PROC: 02L70CK Occlusion of Left Atrial Appendage with Extraluminal Device, Open Approach (ICD-10-PCS; 2023-11-26)
PROC: 30233N1 Transfusion of Nonautologous Red Blood Cells into Peripheral Vein, Percutaneous Approach (ICD-10-PCS; 2023-11-26)
PROC: 0211093 Bypass Coronary Artery, Two Arteries from Coronary Artery with Autologous Venous Tissue, Open Approach (ICD-10-PCS; 2023-11-26)
PROC: 06BP4ZZ Excision of Right Saphenous Vein, Percutaneous Endoscopic Approach (ICD-10-PCS; 2023-11-26)
PROC: 02110A9 Bypass Coronary Artery, Two Arteries from Left Internal Mammary with Autologous Arterial Tissue, Open Approach (ICD-10-PCS; 2023-11-26)
PROC: 5A1221Z Performance of Cardiac Output, Continuous (ICD-10-PCS; 2023-11-26)
DX: I21.19 ST elevation (STEMI) myocardial infarction involving other coronary artery of inferior wall (principal); I50.33 Acute on chronic diastolic (congestive) heart failure; E87.1 Hypo-osmolality and hyponatremia; D62 Acute posthemorrhagic anemia; J98.11 Atelectasis; Z68.1 Body mass index [BMI] 19.9 or less, adult; R64 Cachexia; F17.210 Nicotine dependence, cigarettes, uncomplicated; I11.0 Hypertensive heart disease with heart failure; E11.65 Type 2 diabetes mellitus with hyperglycemia; I25.10 Atherosclerotic heart disease of native coronary artery without angina pectoris; E86.1 Hypovolemia; I25.5 Ischemic cardiomyopathy; F10.90 Alcohol use, unspecified, uncomplicated; D72.829 Elevated white blood cell count, unspecified; R63.6 Underweight; E83.42 Hypomagnesemia; D75.839 Thrombocytosis, unspecified; E78.5 Hyperlipidemia, unspecified; K21.9 Gastro-esophageal reflux disease without esophagitis; Z63.4 Disappearance and death of family member; Z88.2 Allergy status to sulfonamides
CPT/HCPCS: 36600; 71045; 71046; 80048; 80053; 80061; 81003; 81015; 82248; 82330; 82565; 82570; 82805; 82947; 82962; 82977; 83036; 83735; 83930; 83935; 84132; 84300; 84302; 84443; 84484; 84520; 85014; 85018; 85025; 85027; 85049; 85347; 85610; 85730; 86850; 86900; 86901; 86920; 87077; 87086; 87186; 93005; 93306; 93312; 93320; 93325; 93458; 93880; 94002; 94010; 96374; 96375; 99291; 99406; C1894; P9016; P9045; Q9967

== ENCOUNTER 2023-12-17 17:22 | Observation (INO) | payer OTHER, SELFPAY ==
[2023-12-17] VITALS (35 sets, daily range): BP systolic 82–117; BP diastolic 60–97; BMI 21.5; BMI 19.6
--- NOTE | 2023-12-17 15:00 | ED.GENMED ---
History of Present Illness
General
Chief Complaint: Dizziness
Time Seen by Provider: 12/17/23 15:00
Travel History
Have you had any contact with someone who has COVID-19?: No
Do you have any symptoms of coronavirus? Fever > 100 degrees, chills, cough, shortness of breath, sore throat, loss of taste or smell, muscle aches, or headache?: No
History of Present Illness
History of Present Illness:
HPI: This the patient presents with dizziness. At 3:00 this morning after she already awoke, the patient started having dizziness, weakness, and a general unwell feeling. She denies any chest pain. She did have recent CABG. She had been feeling
well over the last 3 days and started taking a decreased dose of metoprolol (had been taking 37.5 mg of metoprolol twice daily and now was down to 25 mg twice daily over the past 3 days).
EXAM:
GENERAL: Well appearing in no distress but appears somewhat weak
HEENT: Moist oral mucosa
CARDIOVASCULAR: No murmurs, tachycardic heart rate, regular rhythm, No chest wall tenderness
PULMONARY: No respiratory distress, breath sounds are clear and equal
ABDOMEN: Soft with no peritoneal signs, no tenderness
NEUROLOGIC: Excellent strength all extremities, no coordination deficits
PSYCHIATRIC: Appropriate mental status, normal insight and judgement
EXTREMITIES: Nontender, no edema, moves all extremities equally
SKIN: No rash, no lesions
TIME OF INITIAL ENCOUNTER: 3 PM
NUMBER AND COMPLEXITY OF PROBLEMS ADDRESSED AT THE ENCOUNTER
� Chronic conditions affecting care: High blood pressure, hyperlipidemia, diabetes, CABG 11/17/2023
� Acute Exacerbation and/or Progression of Chronic Illness: This is an acute problem
� Differential Diagnosis includes: SVT, a flutter with RVR
AMOUNT AND/OR COMPLEXITY OF DATA TO BE REVIEWED AND ANALYZED
� I performed an independent evaluation of and my interpretation is:
EKG: SVT versus atrial flutter rate of 171
CT:
X-rays:
Laboratory Studies: White count normal, hemoglobin 10.4, bicarb 18, creatinine normal, troponin elevated of doubtful clinical significance, potassium normal but magnesium slightly low
Other:
� Review of other/old records: I reviewed records, the patient was seen here as a STEMI nearly a month ago and ultimately had coronary bypass x 4 along with left atrial appendage clip. Of note, she was discharged home with
Toprol tartrate 25 mg� 1.5 tabs twice daily
� Clinical information was obtained by an independent historian: I spoke to family at bedside
� Prescriptions/Medications Considered but not given:
� Further testing considered but not performed:
RISK OF COMPLICATIONS AND/OR MORBIDITY OR MORTALITY OF PATIENT MANAGEMENT
� Social determinants of health affecting care: Lives at home
� Discussion with other providers: I spoke to Dr. Christianson who recommends Eliquis and medical admission along with Cardizem
� Escalation of care including admission/observation vs risk of discharge considered: Initial rhythm on the EKG was either SVT or a flutter with RVR. After a dose of adenosine, she clearly has atrial flutter. No additional
adenosine was given. I reviewed records. The patient was seen by Dr. Bobaike last admission. I spoke to Dr. Christianson today. The time of onset of her symptoms could possibly be 3 AM however the did have symptoms ongoing for the past 3 days. She is
not currently anticoagulated Dr. Christianson agrees today will do CASSANDRA/cardioversion tomorrow. Magnesium slightly low�I have ordered IV magnesium.
Past History
Past History
ED Past Medical History: None
ED Past Surgical History: None
Social History
Tobacco: Non-smoker
Alcohol: None
Living: with family
Employment: Employed
Family History
Family History: Hypertension
Phy Exam
Physical Exam
Physical Exam:
See HPI
Course
Orders/Labs/Results
Orders:
Orders
12/17/23 14:43
Electrocardiogram (*1) Urgent
Reason for Study: Chest Pain
EKG- Treatment ONCE
12/17/23 15:02
Electrocardiogram (*1) Urgent
Reason for Study: Vertigo / Dizzy
12/17/23 15:09
Basic Metabolic Panel Urgent
Complete Blood Count/With Diff Urgent
Prothrombin Time Urgent
Serum Osmolality Urgent
TSH Reflex To Free T4 Urgent
Troponin I Urgent
12/17/23 15:10
Adenosine [Adenocard] 12 mg .ROUTE .STK-MED ONE
Adenosine [Adenocard] 6 mg IV NOW STA
12/17/23 15:11
Add On- LAB Urgent
Tests Added?: tsh w/ reflex fT4
12/17/23 15:12
Add On- LAB Urgent
Tests Added?: magnesium
12/17/23 15:18
Diltiazem 125 mg/125 ml Nss [Cardizem] 125 mg in 125 ml .ROUTE .STK-MED
Diltiazem HCl [Cardizem] 25 mg .ROUTE .STK-MED ONE
12/17/23 15:28
Diltiazem HCl [Cardizem] 10 mg IV NOW STA
Diltiazem HCl [Cardizem] 10 mg IV NOW STA
12/17/23 15:30
Diltiazem 125 mg/125 ml Nss [Cardizem] 125 mg in 125 ml IV PER PROTOCOL
Initial dose in mg/hr, then titrate:: 10
Titrate to keep:: Heart rate 80-100 bpm
Titrate by mg/hr:: 5 mg/hr
Frequency of titrations (minutes):: 15
Maximum dose in mg/hr:: 15
12/17/23 15:52
Heparin 3,300 units IV NOW STA
Pharmacy Request to Place See Dose Instructions PO NOW STA
Discontinue all Active Warfarin orders?: Yes
12/17/23 16:00
Heparin 06717 Units/250 ml 25,000 units in 250 ml IV PER PROTOCOL
Weight to be used for heparin protocol in kilograms (kg):: 55.1
Protocol:: Cardiac Tx/Acute Coronary
PTT Goal Range to be used:: PTT 73 to 111 seconds
Order type:: Initial
INITIAL Infusion Dose (UNITS/KG/hr) & then follow protocol:: 15 units/kg/hr
Infusion Dose in UNITS/hr & then follow protocol (UNITS/hr):: 850
INFUSION RATE in mL/hr & then follow protocol (mL/hr):: 8.5
PTT less than or equal to 64 seconds:: Increase rate by 200 units/hr (+ 2 mL/hr)
PTT 64.1 to 72.9 seconds:: Increase rate by 100 units/hr (+ 1 mL/hr)
PTT 73 to 111 seconds:: Target Range. No change in rate.
PTT 111.1 to 130.9 seconds:: Decrease rate by 100 units/hr (- 1 mL/hr)
PTT 131 to 199.9 seconds:: HOLD for 1 hr. Then decrease rate by 200 units/hr (- 2 mL/hr)
PTT greater than or equal to 200 seconds:: HOLD for 2 hrs & Notify Provider. Then decrease by 200 units/hr (-
2 mL/hr)
Lab follow-up:: Each change, PTT q6h until 2 consecutive are therapeutic. Then PTT
daily.
Pharmacy Request to Place See Dose Instructions IV DIRECTED
12/17/23 16:13
0.9% Sodium Chloride 500 ml [Nss] 500 ml IV BOLUS
12/17/23 16:27
Magnesium Stat
Comment: ADD ON
Potassium Stat
12/17/23 16:52
Admit/Transfer Patient As Directed
Co-Sign Provider:
Level of Care: Inpatient admission
Assign to:: IVU
Physician / Group: Jean-Claude
Diagnosis: Atrial Flutter with RVR
Reason for Hospitalization: amiodarone drip
Expected length of stay greater than two midnights?: Yes
ELOS- Estimated Length of Stay in days: 3
I certify the patient meets the requirements for IP care: Yes
12/17/23 16:53
Add On- LAB Urgent
Tests Added?: serum osmo
Code Status As Directed
Resuscitation Status: Full Code
Urine Osmolality Random [Osmolality, Random Urine] Urgent
Urine Sodium Urgent
12/17/23 17:00
Nicotine [Nicoderm Transdermal] 21 mg TRANSDERM DAILY
12/17/23 17:09
Amiodarone [Cordarone] 150 mg Dextrose 5%/Water 100 ml [D5w] 100 ml IV NOW
12/17/23 17:15
Amiodarone [Cordarone] 900 mg DEXTROSE 5% PVC-free BAG [D5W PVC-free BAG] 500 ml IV PER PROTOCOL
Initial Dose in mg/min:: 1
Duration of initial dose (hours):: 6
Subsequent dose in mg/min:: 0.5
Duration of subsequent dose (hours):: 18
Maximum dose in mg/min:: 1
Hold and notify provider if:: Heart rate < 60 BPM or SBP < 90 mmHg or MAP < 60 mmHg
12/17/23 20:00
Apixaban [Eliquis] 5 mg PO BID
Abnormal Lab Results
12/17/23 12/17/23
15:09 16:27
RBC 3.72 L 10^6/uL
(4.20-5.40)
Hgb 10.4 L g/dL
(12.0-16.0)
Hct 32.6 L %
(37.0-47.0)
MCHC 31.9 L g/dL
(33.0-37.0)
Plt Count 885 H 10^3/uL
(130-400)
Abs Immat Gran (auto) 0.1 H 10^3/uL
(0-0.05)
Absolute Monos (auto) 0.8 H 10^3/uL
(0.1-0.6)
Immature Gran % 0.6 H %
(0-0.5)
Monocytes % 10.3 H %
(1.7-9.3)
Sodium 130 L mmol/L
(135-145)
Chloride 97 L mmol/L
(98-107)
Carbon Dioxide 18 L mmol/L
(22-30)
Glucose 164 H mg/dl
(70-99)
Magnesium 1.3 L mg/dl
(1.6-2.3)
Troponin I 0.079 H* ng/ml
12/17/23 15:09
12/17/23 16:27
Vital Signs
Initial and Last Documented VS:
Initial Vital Signs
Pulse Resp BP Pulse Ox
90 18 89/60 97
12/17/23 14:39 12/17/23 14:39 12/17/23 14:39 12/17/23 14:39
Last Documented Vital Signs
Temp Pulse Resp BP Pulse Ox
98.9 F 130 16 104/61 97
12/17/23 17:07 12/17/23 16:10 12/17/23 16:10 12/17/23 16:10 12/17/23 16:10
*Critical Care Note
Total Time (30-74mins, 75-104mins- exclusive of procedures): 65min
comment:
The patient arrived with heart rates in the 160s 170s range�after adenosine was given, the patient did not convert but clearly showed flutter waves. Will switch from Cardizem to amiodarone after discussion with cardiology. I have ordered both
bolus and drip. I have ordered IV magnesium as well as the magnesium level is slightly low. Blood pressure had been low but is overall somewhat improved currently. She was given some IV fluids emergently as well.
ED Attending Note
-
Portions of this chart may have been created with voice recognition software.� Occasional wrong word or��sound alike� substitutions may have occurred due to the inherent limitations of voice recognition software.
Discharge Plan
Departure
Patient Disposition: Admit
Date of Disposition: 12/17/23
Time of Disposition: 15:56
Presentation/result/management discussed w/ accepting MD/DO: Hospitalist
Discharge Problem:
Atrial flutter with rapid ventricular response
Interventions
Interventions:
*Risk Screen - Suicide Last Done: 12/17/23 14:39
*General Assessment Last Done: 12/17/23 14:39
*Neglect/Abuse Screening Last Done: 12/17/23 14:39
ED- Fall Risk Assessment Last Done: 12/17/23 15:37
*ED COVID-19 Vaccine History Last Done: 12/17/23 14:39
ED- Neurological Assessment Last Done: 12/17/23 15:37
ED- Cardiac Assessment Last Done: 12/17/23 15:37
ED Swallowing Screen Last Done: 12/17/23 16:16
[2023-12-17] MEDS: ADENOCARD 6 MG IV (15:11)
[2023-12-17] MEDS: CARDIZEM 10 MG IV (15:28)
[2023-12-17] MEDS: CARDIZEM 125 IV (15:29)
[2023-12-17 15:42] LABS: % Basophils 1.3 % (0-2); % Eosinophils 1.9 % (0-6); % Immature Granulocytes 0.6 % (0-0.5); % Lymphocytes 22.2 % (20.5-51.1); % Monocytes 10.3 % (1.7-9.3); % Neutrophils 63.7 % (42.2-75.2); Absolute Basophils 0.1 10^3/uL (0-0.2); Absolute Eosinophils 0.2 10^3/uL (0-0.7); Absolute Immature Granulocytes 0.1 10^3/uL (0-0.05); Absolute Lymphocytes 1.7 10^3/uL (1.2-3.4); Absolute Monocytes 0.8 10^3/uL (0.1-0.6); Hematocrit 32.6 % (37.0-47.0); Hemoglobin 10.4 g/dL (12.0-16.0); Mean Corp Hgb Conc. 31.9 g/dL (33.0-37.0); Mean Corpuscular Volume 87.6 fL (81.0-99.0); Mean Platelet Volume 8.9 fL (7.4-10.4); Nucleated Red Blood Cells % 0 %; Platelet Count 885 10^3/uL (130-400); Red Blood Cell Count 3.72 10^6/uL (4.20-5.40); White Blood Cell Count 7.8 10^3/uL (4.8-10.8)
[2023-12-17 15:54] LABS: INR 1.16; PT 14.6 Sec (11.4-14.6)
--- NOTE | 2023-12-17 15:54 | CON.CAR ---
Addendum entered and electronically signed by Ced Christianson MD 12/17/23 17:55:
I saw and examined the patient.
The INTEGRATED LOGISTICS SUPPORT MANAGER's note was reviewed and I agree with the note.
Comment: Now with symptomatic rapid atrial flutter after recent CABG (11/26/2023). Spoke with Dr. Alarcon. He is OK with Eliquis at this time. Plan short term Amio now as BP is a bit soft (and stop the IV dilt). Likely home of PO AMIO for 4-12
weeks. Home on new Eliquis. Anticipate CASSANDRA/Cardioversion tomorrow. Stop ASA as we plan Eliquis + Plavix. At the one year minor anticipate going to just Eliquis. But we have option of stopping Eliquis and using antiplatelet meds as so far this is
still within the CABG window...PERLA clip noted but will need a clear CASSANDRA and on anticoagulation for cardioversion.
Original Note:
Consultation
Consultation Request
Date/Time Consultation Requested: 12/17/2023 15:30
Date/Time Consultation Performed: 12/17/2023 15:45
Requesting Provider: Dr. Ricardo
Performing Provider: MARIJA Villanueva for Dr. Christianson
Reason for Consultation: Rapid atrial flutter
Medical History
-
Chief Complaint: Dizziness
History of Present Illness:
Adriana Lyman is a 68-year-old female who presented after having multiple days of chest pain. She thought this was related to her father passing away. EKG in the ER showed inferior wall STEMI. She went for cardiac catheterization which confirmed
multivessel CAD. She went for CABG on 11/26/2023. She does not seek regular outpatient medical care. She was also diagnosed with type 2 diabetes and dyslipidemia. At approximately 3:00 this morning she woke from sleep very sweaty and feeling
'off'. She reports not feeling well for the past 48 hours intermittently. She is having no chest pain but admits to some palpitations and episodes of 'wooziness'. She presented to the emergency department and was found to be in atrial flutter.
She was started on a diltiazem drip. She will be started on apixaban. The plan is for observation admission with CASSANDRA guided DCCV in a.m. as the onset of her atrial flutter is not clear.
Patient's primary plastics technician will be Dr. Cotto.
Past Medical History
Past Medical History: CAD, Hypercholesterolemia and NIDDM
Past Surgical History: Cardiac
Social History
Tobacco: Former Smoker
Alcohol: None
Drug: None
Living: With Family
Family History
Family History: Reviewed & Not Pertinent
Allergies / Home Medications
Allergy/AdvReac Type Severity Reaction Status Date / Time
Sulfa (Sulfonamide Allergy Unknown Verified 12/17/23 14:38
Antibiotics)
�Medication �Instructions �Recorded �Confirmed �Type
clopidogrel 75 mg tablet 75 mg PO DAILY Blood clot 11/30/23 12/17/23 Rx
prevention/tx #90 tabs
gabapentin 100 mg capsule 100 mg PO BID post operative pain 11/30/23 12/17/23 Rx
#30 caps
metformin 500 mg tablet 500 mg PO BID@0800,1700 diabetes 11/30/23 12/17/23 Rx
#60 tabs
pantoprazole 40 mg tablet,delayed 40 mg PO DAILY Gi prophylaxis #90 11/30/23 12/17/23 Rx
release tabs
acetaminophen 500 mg tablet 1,000 mg PO Q8HPRN PRN mild to 12/17/23 12/17/23 History
(Tylenol Extra Strength) moderate pain
aspirin 81 mg tablet,delayed 81 mg PO DAILY 12/17/23 12/17/23 History
release
atorvastatin 80 mg tablet 80 mg PO DAILY@1999 High 12/17/23 12/17/23 History
cholesterol
cyclobenzaprine 5 mg tablet 5 mg PO TID PRN muscle spasms 12/17/23 12/17/23 History
empagliflozin 10 mg tablet 10 mg PO DAILY@1999 Diabetes 12/17/23 12/17/23 History
(Jardiance)
metoprolol tartrate 25 mg tablet 25 mg PO Q12H Blood pressure 12/17/23 12/17/23 History
sennosides 8.6 mg tablet (Senokot) 8.6 mg PO DAILY PRN constipation 12/17/23 12/17/23 History
Review of Systems
-
History Source: Patient
All other systems: Negative unless noted
Neurological: Dizzy and Weakness
Physical Exam
Vital Signs
Pulse Resp BP Pulse Ox
175 21 86/70 98
12/17/23 15:35 12/17/23 15:35 12/17/23 15:35 12/17/23 15:24
Lab Results
12/17/23 15:09
Physical Exam
General: Well Developed, Well Nourished, No Apparent Distress and Comfortable
HEENT: Normocephalic, Anicteric and Moist Mucous Membranes
Respiratory: Non Labored Respirations
Cardiac: S1/S2 and Regular Rhythm (tachycardia)
Breast: Deferred by me
GI: Soft, Non Tender, Non Distended and Normal Bowel Sounds
Rectal: Deferred by Provider
Genito-urinary: No Costovertebral Tender
Musculoskeletal: No Clubbing, No Cyanosis and No Edema
Skin: Warm and Dry
Neuro: AO x 3
Hematologic/Lymphatic: No Lymphadenopathy
Psych: Calm
Impression / Plan
-
Atrial flutter with rapid ventricular response
-Attempting to achieve rate control with diltiazem drip
-Oral Anticoagulation: Stop aspirin and start apixaban 5 mg twice daily
-[id number]: score at least 3 (Vascular disease, age 65-74, female gender)
-CASSANDRA guided DCCV in a.m.
STEMI S/P CABG x 4 (TIERNEY-Diag/LAD, SVG-OM, SVG-PDA & #35 PERLA clip) 11/26/[address] Alarcon
-Stop ASA
-Continue beta-patrick and clopidogrel
Hyponatremia, chronic
Anemia, improved
HLD, goal LDL < 55, continue atorvastatin 80mg QPM
Hyperglycemia, Hgba1c 11.7% last admission, continue medical therapy
Former smoker, full cessation recommended
Data Reviewed
-
EKG: Report Reviewed by me (Atrial flutter, 2:1 block, rate 171)
Labs: Labs Reviewed by me
Old Records: Reviewed
[2023-12-17 16:02] LABS: Blood Urea Nitrogen 17 mg/dl (7-17); Calcium 9.7 mg/dl (8.4-10.2); Carbon Dioxide 18 mmol/L (22-30); Chloride 97 mmol/L (98-107); Estimated Creatinine Clearance 63 ml/min; Glucose 164 mg/dl (70-99); Sodium 130 mmol/L (135-145); eGFR > 60.00
--- NOTE | 2023-12-17 16:05 | W.PN.UPDATE ---
Update Note
Progress Note Update
I saw and examined the patient.
The MID LEVEL PROVIDER or PA's note was reviewed and I agree with the note.
Comment: 68 y/o F recent CABG procedure presents with dizziness and generally feeling unwell. No CP. Recently was feeling well prompting reducing Metoprolol from 37.5 BID to 25mg BID. In ER, initial rhythm concerning for SVT vs flutter with RVR -
after adenosine dose, flutter was revealed. Patient admitted to hospitalist service for CASSANDRA/CV. Eliquis started.
Physical Exam
General: Comfortable and Conversant
HEENT: Anicteric and Moist mucous membranes
Respiratory: Clear and Non Labored Respirations
Cardiac: S1/S2, Regular Rhythm and Tachycardia
GI: Soft and Non Tender
Rectal: Deferred by Provider
Musculoskeletal: No Clubbing, No Cyanosis and No Edema
Skin: Warm and Dry
Neuro: Awake, Alert, Oriented and Nonfocal/grossly intact
Psych: Calm
Assessment:
New A.flutter with RVR
- revealed by Adenosine in ER
- check TSH
- continue Amiodarone drip
- start Eliquis; ok to start per CTS
- for CASSANDRA/CV in AM
Nonischemic myocardial injury
- trend to peak
chronic hyponatremia
- send workup again
CAD s/p coronary artery bypass 11/26/2023
- continue Plavix/Statin
- holding BB
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
- continue Jardiance
- holding BB
Type 2 diabetes with neuropathy
- continue MFM
- add SSI
- check A1c
- continue Gabapentin
DVT ppx: Eliquis
Code: Full
[2023-12-17 16:09] LABS: Troponin I 0.079 ng/ml
[2023-12-17] MEDS: NSS 500 IV (16:31)
--- NOTE | 2023-12-17 16:47 | HPS.HSE ---
Addendum entered and electronically signed by Lenny Bermeo MD 12/17/23 18:16:
see my update note for addendum
Original Note:
Family Physician
-
Family Physician:
Chief Complaint
-
Palpitations and Dizziness
History of Present Illness
This is a 68-year-old female with a past medical history of hypertension, recent STEMI s/p CABG x 4 and atrial clip, diabetes mellitus, hypercholesterolemia who presents today for lightheadedness. She states she began to feel lightheaded around 3 am
this morning and states moving around made it worse, but it is relieved with lying down. She was unable to obtain blood pressure during this episode due to malfunction of her automatic blood pressure cuff. She states she has been doing well overall
since the cardiac procedure but states during her daily five minute walks yesterday, she began with acute onset of weakness and had to stop the walk half way through. This morning she began to feel lightheaded, diaphoretic and began to feel
palpitations, prompting her to come to ED. She recently reduced the dose of her metoprolol from 37.5 mg BID to 25 mg BID due to feeling unwell. She denies chest pain, headache, N/V, abdominal pain or loss of consciousness.
Medical History
Past Medical History
Past Medical History: Reports Other
Additional Past Medical History:
Coronary Artery Disease s/p CABG October 2023
Essential Hypertension
Hyperlipidemia
Diabetes Mellitus, Type II
Past Surgical History: Reports Other
Additional Past Surgical History:
CABG x 4, with PERLA Clip in October 2023
Social History
Tobacco: Former Smoker (Quit in October 2023 following STEMI)
Alcohol: None
Family History
Family History: Not pertinent
Allergies / Home Medications
Allergies reflects when Allergies were last updated in [facility].
Home Medications with original date entered in [facility]
Allergy/Medication List:
Allergies
Allergy/AdvReac Type Severity Reaction Status Date / Time
Sulfa (Sulfonamide Allergy Unknown Verified 12/17/23 14:38
Antibiotics)
Home Medications
clopidogrel 75 mg tablet 75 mg PO DAILY Blood clot prevention/tx #90 tabs 11/30/23
gabapentin 100 mg capsule 100 mg PO BID post operative pain #30 caps 11/30/23
metformin 500 mg tablet 500 mg PO BID@0800,1700 diabetes #60 tabs 11/30/23
pantoprazole 40 mg tablet,delayed release 40 mg PO DAILY Gi prophylaxis #90 tabs 11/30/23
acetaminophen 500 mg tablet (Tylenol Extra Strength) 1,000 mg PO Q8HPRN PRN mild to moderate pain 12/17/23
aspirin 81 mg tablet,delayed release 81 mg PO DAILY 12/17/23
atorvastatin 80 mg tablet 80 mg PO DAILY@1999 High cholesterol 12/17/23
cyclobenzaprine 5 mg tablet 5 mg PO TID PRN muscle spasms 12/17/23
empagliflozin 10 mg tablet (Jardiance) 10 mg PO DAILY@1999 Diabetes 12/17/23
metoprolol tartrate 25 mg tablet 25 mg PO Q12H Blood pressure 12/17/23
sennosides 8.6 mg tablet (Senokot) 8.6 mg PO DAILY PRN constipation 12/17/23
Review of Systems
-
A 12 point ROS was completed and negative except as noted: Yes
Constitutional: Denies Fever or Chills
Respiratory: Denies Cough or Trouble Breathing
Cardiac: Reports Palpitations; Denies Chest Pain
Neurological: Reports Dizzy
Physical Exam
Vital Signs
Vital Signs
Pulse Resp BP Pulse Ox
130 16 104/61 97
12/17/23 16:10 12/17/23 16:10 12/17/23 16:10 12/17/23 16:10
Physical Exam
General: Comfortable and Conversant
HEENT: Anicteric and Moist mucous membranes
Respiratory: Clear and Non Labored Respirations
Cardiac: S1/S2, Regular Rhythm and Tachycardia
GI: Soft and Non Tender
Rectal: Deferred by Provider
Musculoskeletal: No Clubbing, No Cyanosis and No Edema
Skin: Warm and Dry
Neuro: Awake, Alert, Oriented and Nonfocal/grossly intact
Psych: Calm
Laboratory Results
-
12/17/23 15:09
Laboratory Results
PT 14.6 Sec (11.4-14.6) 12/17/23 15:09
INR 1.16 12/17/23 15:09
APTT Cancelled 12/17/23 15:52
Lactic Acid Cancelled 12/17/23 15:09
Lactic Acid Cancelled 12/17/23 15:09
Total Bilirubin Cancelled 12/17/23 15:09
AST Cancelled 12/17/23 15:09
ALT Cancelled 12/17/23 15:09
Alkaline Phosphatase Cancelled 12/17/23 15:09
Troponin I 0.079 ng/ml H* 12/17/23 15:09
Data Reviewed
-
Lab Data: Labs Reviewed by me
Old Records: Reviewed
Impression/Plan
-
Atrial Flutter with Rapid Ventricular Response
-Consult Cardiology
-Start Eliquis for anticoagulation
-Start Amiodarone drip
Hyponatremia, appears more chronic
-Check urine sodium and urine osmo
-Continue fluid restriction
Coronary Artery Disease s/p CABG October 2023
-Continue Plavix
Essential Hypertension
-BP running low
-Hold metoprolol and monitor BP closely
Hyperlipidemia
-Continue atorvastatin
Diabetes Mellitus, Type II
-HgbA1c 11 in October 2023 (New diagnosis at that time)
-Continue Jardiance and Metformin
-Monitor sugars and continue coverage insulin
DVT proph: Eliquis
Code Status: Full Code
[2023-12-17 17:06] LABS: Magnesium 1.3 mg/dl (1.6-2.3); Potassium 4.5 mmol/L (3.5-5.1)
[2023-12-17] MEDS: CORDARONE 103 MG IV (17:23)
[2023-12-17] MEDS: NICODERM TRANSDERMAL 21 MG TRANSDERM (17:33)
[2023-12-17] MEDS: CORDARONE 518 MG IV (17:38)
[2023-12-17 18:01] LABS: Osmolality Serum 272 mOsm/kg (275-300)
[2023-12-17] MEDS: MAGNESIUM SULFATE 50 IV ×2 (18:38→21:12)
--- NOTE | 2023-12-17 20:00 | PTCARENOTE ---
Received pt from ED; Pt is AAOx4, states pain is 4/10 due to her sternal incision from a CABG from October 2023; SVT on monitor, VSS; heart sounds audible, radial and DP pulses palpable, no edema noted; lungs CTA, Spo2 98% on RA; +BS x 4 quadrants,
abdomen soft non tender; pt voiding clear yellow urine; pt has healing surgical sites from CABG proformed in October 2023, sites are sternal, right leg, and right groin, pt complains of tenderness around her sternal incision, no redness, swelling or
discharge noted; right PIV maintained; pt arrived to IVU from ED with Amiodarone and magnesium gtt infusing; Admission questions were completed; Pt's daughter at bedside and plans to stay overnight; call gibbons within reach, will continue to monitor.
[2023-12-17 20:24] LABS: Glucose - Point of Care 173 mg/dl (70-99)
[2023-12-17] MEDS: JARDIANCE 10 MG PO (20:24)
[2023-12-17] MEDS: ELIQUIS 5 MG PO (20:24)
[2023-12-17] MEDS: GLUCOPHAGE 500 MG PO (20:24)
[2023-12-17] MEDS: NEURONTIN 100 MG PO (20:24)
[2023-12-17] MEDS: LIPITOR 80 MG PO (20:24)
[2023-12-17] MEDS: MAGNESIUM SULFATE IV (20:25)
[2023-12-17] MEDS: TYLENOL 650 MG PO (20:32)
[2023-12-17] MEDS: NOVOLOG FLEXPEN-LOW RESISTANCE 1 UNITS SC (21:13)
--- NOTE | 2023-12-17 21:41 | ECGCV ---
Sheela Alvarez notified of ECG critical value identified by electronic interpretation on ECG completed on 12/17/2023, at 2141.
[2023-12-17 22:22] LABS: Glucose - Point of Care 192 mg/dl (70-99)
[2023-12-17 22:43] LABS: Osmolality Urine 395 mOsm/kg (300-900)
[2023-12-17 23:17] LABS: Urine Sodium 21 mmol/L (30-90)
[2023-12-18] VITALS: BP 119/72
--- NOTE | 2023-12-18 | PTCARENOTE ---
Pt converted to NSR from SVT ~ 1130; VSS; pt resting comfortably in bed; pt is NPO after 0000; call gibbons within reach; will continue to monitor.
[2023-12-18 00:25] VITALS: BP 119/72
[2023-12-18 03:04] VITALS: BP 136/78
[2023-12-18 03:57] LABS: Hemoglobin 9.3 g/dL (12.0-16.0); Mean Corp Hgb Conc. 33.2 g/dL (33.0-37.0); Mean Corpuscular Hgb 27.9 pg (27.0-31.0); Mean Corpuscular Volume 84.1 fL (81.0-99.0); Mean Platelet Volume 8.5 fL (7.4-10.4); Platelet Count 766 10^3/uL (130-400); Red Blood Cell Count 3.33 10^6/uL (4.20-5.40); White Blood Cell Count 7.2 10^3/uL (4.8-10.8)
--- NOTE | 2023-12-18 04:00 | PTCARENOTE ---
pt assessment unchanged; SR on monitor, VSS; pt resting comfortably in bed; labs and EKG obtained; amiodarone gtt infusing; call gibobns within reach; will continue to monitor.
[2023-12-18 04:23] LABS: Blood Urea Nitrogen 15 mg/dl (7-17); Calcium 9.1 mg/dl (8.4-10.2); Carbon Dioxide 21 mmol/L (22-30); Chloride 100 mmol/L (98-107); Estimated Creatinine Clearance 60 ml/min; Glucose 136 mg/dl (70-99); Magnesium 2.8 mg/dl (1.6-2.3); Potassium 4.9 mmol/L (3.5-5.1); Sodium 132 mmol/L (135-145); eGFR > 60.00
[2023-12-18 05:38] VITALS: BMI 19.6
[2023-12-18 07:38] VITALS: BP 157/80
[2023-12-18 07:41] LABS: Glucose - Point of Care 154 mg/dl (70-99)
--- NOTE | 2023-12-18 07:49 | W.PN.CD ---
Today's Communication / Plan
-
finish IV amio load
start 400mg po amiodarone x 14 days then 200mg daily
resume bb
echo
resume diet
home later today
Impression / Plan
-
Atrial flutter with rapid ventricular response
-converted to NSR at 23:29 12/17/23
-Continue Amiodarone, would continue for 12 weeks, home on 400 BID for 2 weeks then 200mg daily. Would finish IV load today.
-Oral Anticoagulation: Stop aspirin and start apixaban 5 mg twice daily
-[id number]: score at least 3 (Vascular disease, age 65-74, female gender)
-TTE as no need for CASSANDRA
STEMI S/P CABG x 4 (TIERNEY-Diag/LAD, SVG-OM, SVG-PDA & #35 PERLA clip) 11/26/[address] Alarcon
-Stop ASA
-resume beta-patrick
-continue clopidogrel
Hyponatremia, chronic
Anemia, improved
HLD, goal LDL < 55, continue atorvastatin 80mg QPM
Hyperglycemia, Hgba1c 11.7% last admission, continue medical therapy
Former smoker, full cessation recommended
Subjectvie:
-she is feeling a lot better, no cp, sob or palpitations.
Physical Exam
Vital Signs/Labs
Vital Signs
Temp Pulse Resp BP Pulse Ox
97.8 F 88 16 157/80 97
12/18/23 07:36 12/18/23 07:38 12/18/23 07:36 12/18/23 07:38 12/18/23 07:36
12/17/23 12/18/23 12/19/23
06:59 06:59 06:59
Actual Weight 50.1 kg
12/18/23 03:09
12/18/23 03:10
PT 14.6 Sec (11.4-14.6) 12/17/23 15:09
INR 1.16 12/17/23 15:09
APTT Cancelled 12/17/23 15:52
Magnesium 2.8 mg/dl (1.6-2.3) H 12/18/23 03:10
LAB Results
12/17/23
15:09
Troponin I 0.079 H*
Physical Exam
Constitutional: No acute distress
Cardiovascular: Rhythm & rate is regular, Pedal edema is absent, JVD pressure is normal, Systolic murmur absent and Diastolic murmur absent
Respiratory: Respiratory effort normal, Lungs clear to auscul., Wheeze Absent, Rhonchi Absent and Crackles Present (right base improve but don't resolve with deep breath)
Neuro/Psych: AO x 3
Data Reviewed
-
Date of Service: December 18, 2023
[2023-12-18] MEDS: NOVOLOG FLEXPEN-LOW RESISTANCE 1 UNITS SC (08:40)
[2023-12-18] MEDS: NICODERM TRANSDERMAL 21 MG TRANSDERM (08:41)
[2023-12-18] MEDS: NEURONTIN 100 MG PO (08:44)
[2023-12-18] MEDS: ELIQUIS 5 MG PO (08:44)
[2023-12-18] MEDS: PLAVIX 75 MG PO (08:45)
[2023-12-18] MEDS: GLUCOPHAGE 500 MG PO (08:45)
[2023-12-18] MEDS: PROTONIX 40 MG PO (08:45)
[2023-12-18] MEDS: LOPRESSOR 25 MG PO (08:45)
[2023-12-18] MEDS: TYLENOL 650 MG PO (08:48)
--- NOTE | 2023-12-18 09:12 | PTCARENOTE ---
Assumed care of pt from night RN. Pt received sleeping but wakens easily to verbal. Daughter slept at bedside at night. VSs, CM shows NSR 80's, POX 97% on RA. Pt converted at 2330 last night. Amiodarone infusing through RAC at 0.5 mg/hr, full
load will be finished at 1538. Pt c/o sternal pain 11/06, medicated with Tylenol as per SEP. Will continue to monitor closely.
--- NOTE | 2023-12-18 11:14 | CM ---
CM following for DC planning needs.
Met w/ patient at bedside to complete initial assessment.
Pt. was recently @ for CT Surg. Reviewed prior level of functioning. Pt. resides in a private 2 story home w/ spouse. Pt. is functionally indep. at baseline w/ ADLs, mobility without the use of any assisted device.
OBS status reviewed w/ pt. RAMIREZ letter presented; signed copy placed in chart.
Anticipated DC plan is for home, no needs.
Will remain available for any needs that may arise.
--- NOTE | 2023-12-18 11:18 | CM ---
Priced Eliquis thru [facility]. Estimated cost for 90d supply via mail-order is $62.50. 30d supply thru retailer pharmacy would be less or equal to this.
Relayed this information to pt.
Coupon for free 30 d supply placed in chart.
[2023-12-18 11:39] VITALS: BP 130/78
[2023-12-18] MEDS: NOVOLOG FLEXPEN-LOW RESISTANCE 2 UNITS SC (13:05)
[2023-12-18 13:06] LABS: Glucose - Point of Care 208 mg/dl (70-99)
--- NOTE | 2023-12-18 14:04 | W.PN.HOSP.TC ---
Today's Communication/Plan
-
dc home
Assessment / Plan
Assessment / Plan
Assessment:
New A.flutter with RVR
- revealed by Adenosine in ER
- TSH normal
- finish Amiodarone drip; 400 BID for 2 weeks then 200mg daily. Converted to NSR.
- Eliquis.[id number]: score at least 3 (Vascular disease, age 65-74, female gender)
Nonischemic myocardial injury
- trend to peak
chronic hyponatremia
- Na132
CAD s/p coronary artery bypass 11/26/2023
- continue Plavix/Statin
- ASA stopped
- holding BB
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
- continue Jardiance
- holding BB
Type 2 diabetes with neuropathy
- continue MFM
- add SSI
- A1c 11.7%
- continue Gabapentin
DVT ppx: Eliquis
Code: Full
More than 30 minutes spent in discharge including
Final examination of the patient
Summarizing hospital stay
Instructions for continuing care to all relevant caregivers
Preparation of discharge records, prescriptions, and referral forms
Total time spent (in minutes): 41
Anticipated Discharge: Today
Subjective/Interval History
-
Date of Service: December 18, 2023
no new complaints
Objective Data
-
Labs:
Laboratory Results
12/18/23 12/18/23
03:09 03:10
WBC 7.2
Hgb 9.3 L
Hct 28.0 L
Plt Count 766 H
Sodium 132 L
Potassium 4.9
Chloride 100
Carbon Dioxide 21 L
BUN 15
Creatinine 0.7
Glucose 136 H
Calcium 9.1
Vital Signs:
Vital Signs
Temp Pulse Resp BP Pulse Ox
98.8 F 77 16 130/78 98
12/18/23 12:11 12/18/23 12:30 12/18/23 12:11 12/18/23 11:39 12/18/23 12:11
I&O
12/17/23 12/18/23 12/19/23
06:59 06:59 06:59
Output Total 350 / 350 550 / 550
Balance -350 / -350 -550 / -550
Physical Exam
-
General: No Apparent Distress
HEENT: Normocephalic and Atraumatic
Respiratory: Negative Wheezes
Cardiac: Regular Rhythm and S1/S2
GI: Soft and Nontender
Genito-urinary: No Costovertebral Tender
Neuro: AO x 3
Hematologic / Lymphatic: No Lymphadenopathy
Psych: Calm
Data Reviewed
-
Total Time Spent with Patient (in minutes): 41
Labs: Labs Reviewed by me
--- NOTE | 2023-12-18 14:16 | W.DS.TRANS ---
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
-
Discharge Instructions:
Discharge Diagnosis/Procedures rapid Atrial Flutter
Diet Low Cholesterol
Activity As tolerated
Bathing Restrictions None
Instructions:
Stand-Alone Forms:
Changes to Home Medications: Yes
Discharge Medications:
DC Medications w/original date entered in [employer]
clopidogrel 75 mg tablet 75 mg PO DAILY Blood clot prevention/tx #90 tabs 11/30/23
gabapentin 100 mg capsule 100 mg PO BID post operative pain #30 caps 11/30/23
metformin 500 mg tablet 500 mg PO BID@0800,1700 diabetes #60 tabs 11/30/23
pantoprazole 40 mg tablet,delayed release 40 mg PO DAILY Gi prophylaxis #90 tabs 11/30/23
acetaminophen 500 mg tablet (Tylenol Extra Strength) 1,000 mg PO Q8HPRN PRN mild to moderate pain 12/17/23
atorvastatin 80 mg tablet 80 mg PO DAILY@1999 High cholesterol 12/17/23
cyclobenzaprine 5 mg tablet 5 mg PO TID PRN muscle spasms 12/17/23
empagliflozin 10 mg tablet (Jardiance) 10 mg PO DAILY@1999 Diabetes 12/17/23
sennosides 8.6 mg tablet (Senokot) 8.6 mg PO DAILY PRN constipation 12/17/23
amiodarone 200 mg tablet (Pacerone) See Rx Instructions .Route .COMPLEX #75 tabs 12/18/23
apixaban 5 mg tablet (Eliquis) 5 mg PO BID #60 tabs 12/18/23
metoprolol tartrate 25 mg tablet 25 mg PO BID #60 tabs 12/18/23
Home Medication Changes
ASA stopped
Amio added
Pending Results: No
Total time spent discharging patient (in min): 42
[2023-12-18 15:30] VITALS: BP 125/80
--- NOTE | 2023-12-18 16:20 | PTCARENOTE ---
All D/C info reviewed with pt and daughter, all questions answred. Pt D/C'd home with daughter.
== END 2023-12-18 16:24 | disposition home or self-care (01) ==
LOC: IVU 17:22
PROVIDERS: Emergency Medicine; Physician Assistant Medical; ADMITTING PHYSICIAN Internal Medicine; CONSULT PHYSICIAN Internal Medicine Cardiovascular Disease; EMERGENCY PHYSICIAN Emergency Medicine
DX: I48.92 Unspecified atrial flutter (principal); I48.0 Paroxysmal atrial fibrillation; R42 Dizziness and giddiness; I11.9 Hypertensive heart disease without heart failure; E78.00 Pure hypercholesterolemia, unspecified; I25.5 Ischemic cardiomyopathy; R00.2 Palpitations; E11.40 Type 2 diabetes mellitus with diabetic neuropathy, unspecified; E87.1 Hypo-osmolality and hyponatremia; D64.9 Anemia, unspecified; I5A Non-ischemic myocardial injury (non-traumatic); E11.65 Type 2 diabetes mellitus with hyperglycemia; I25.10 Atherosclerotic heart disease of native coronary artery without angina pectoris; I21.19 ST elevation (STEMI) myocardial infarction involving other coronary artery of inferior wall; Z82.49 Family history of ischemic heart disease and other diseases of the circulatory system; Z79.01 Long term (current) use of anticoagulants; Z95.1 Presence of aortocoronary bypass graft; Z87.891 Personal history of nicotine dependence; Z88.2 Allergy status to sulfonamides; Z79.02 Long term (current) use of antithrombotics/antiplatelets; Z79.84 Long term (current) use of oral hypoglycemic drugs; Z79.82 Long term (current) use of aspirin
CPT/HCPCS: 80048; 82962; 83735; 83930; 83935; 84132; 84300; 84443; 84484; 85025; 85027; 85610; 93005; 93306; 96374; 96375; 99291; G0378; J0153

== ENCOUNTER 2024-01-02 19:35 | Inpatient (IN) | payer OTHER, SELFPAY ==
[2024-01-02 10:04] VITALS: BP 120/85
[2024-01-02 11:30] LABS: % Basophils 0.6 % (0-2); % Eosinophils 0.3 % (0-6); % Immature Granulocytes 0.6 % (0-0.5); % Lymphocytes 8.8 % (20.5-51.1); % Monocytes 10.2 % (1.7-9.3); % Neutrophils 79.5 % (42.2-75.2); Absolute Basophils 0.1 10^3/uL (0-0.2); Absolute Immature Granulocytes 0.1 10^3/uL (0-0.05); Absolute Lymphocytes 1.1 10^3/uL (1.2-3.4); Absolute Monocytes 1.3 10^3/uL (0.1-0.6); Absolute Neutrophils 9.8 10^3/uL (1.4-6.5); Hematocrit 31.4 % (37.0-47.0); Hemoglobin 10.5 g/dL (12.0-16.0); Mean Corp Hgb Conc. 33.4 g/dL (33.0-37.0); Mean Corpuscular Volume 83.7 fL (81.0-99.0); Mean Platelet Volume 8.5 fL (7.4-10.4); Nucleated Red Blood Cells % 0 %; Platelet Count 786 10^3/uL (130-400); Red Blood Cell Count 3.75 10^6/uL (4.20-5.40); Red Cell Dist. Width 14.6 % (11.5-14.5); White Blood Cell Count 12.3 10^3/uL (4.8-10.8)
[2024-01-02 11:31] LABS: Urine Albumin 1+ (Neg - Trace); Urine Bilirubin Negative (Negative); Urine Character Very Cloudy (Clear); Urine Color Yellow; Urine Glucose 3+ (Negative); Urine Ketone Trace (Negative); Urine Leukocyte 2+ (Negative); Urine Nitrite Positive (Negative); Urine Occult Blood 4+ (Negative); Urine Urobilinogen Negative (Neg - 1+)
[2024-01-02 11:46] LABS: ALT (SGPT) 14 U/L (0-35); AST (SGOT) 21 U/L (14-36); Alkaline Phosphatase 83 U/L (38-126); Blood Urea Nitrogen 11 mg/dl (7-17); Calcium 9.4 mg/dl (8.4-10.2); Carbon Dioxide 18 mmol/L (22-30); Chloride 98 mmol/L (98-107); Glucose 159 mg/dl (70-99); Potassium 4.2 mmol/L (3.5-5.1); Sodium 129 mmol/L (135-145); Total Bilirubin 0.5 mg/dl (0.2-1.3); Total Protein 6.8 g/dl (6.3-8.2); eGFR > 60.00
[2024-01-02 12:15] LABS: Urine Bacteria Many (Negative); Urine White Cell >100 /HPF (0-5)
[2024-01-02 14:58] VITALS: BP 148/87
--- NOTE | 2024-01-02 15:26 | ED.GENMED ---
History of Present Illness
General
Chief Complaint: Heart Rate Problem
Time Seen by Provider: 01/02/24 15:03
Travel History
Have you had any contact with someone who has COVID-19?: No
Do you have any symptoms of coronavirus? Fever > 100 degrees, chills, cough, shortness of breath, sore throat, loss of taste or smell, muscle aches, or headache?: No
History of Present Illness
History of Present Illness:
68-year-old female with history of coronary artery disease status post CABG, ischemic cardiomyopathy, chronic hyponatremia, and atrial flutter on Eliquis presents to the emergency department for evaluation of general malaise and weakness for the
past 4 days. She reports loose diarrhea as well as cloudy urine for the past 3 to 4 days as well. Generally poor appetite and activity. Denies any associated fever or night sweats. No chest pain or exertional shortness of breath. Has been down
titrating her amiodarone, currently on 200 mg daily.
Past History
Past History
ED Past Medical History: None
ED Past Surgical History: None
Social History
Tobacco: Non-smoker
Alcohol: None
Living: with family
Employment: Employed
Family History
Family History: Hypertension
Review of Systems
Review of Systems
Allergies reviewed?: Yes
All Other Systems: ROS reviewed and negative except as documented in HPI and ROS
Phy Exam
Physical Exam
Physical Exam:
GEN: Thin and frail, not cachectic
Eyes: PERRLA, EOMs intact, no scleral icterus
HENT: NCAT, oral mucosa moist, no JVD
Lungs: CTAB, no wheezes, rales, rhonchi, normal chest wall excursion
Cardiac: RRR, no M/R/G, no peripheral edema. Radial pulses 2+ bilat; well-approximated midline sternotomy incisional scar
Abdomen: Soft, moderate suprapubic tenderness, no rigidity
Neuro: AO x 3
MSK: No gross deformity or ecchymosis. No edema. No digital clubbing
Skin: No rashes, petechiae. Normal color, no pallor or jaundice.
Psych: Calm, cooperative, proper hygiene
Course
Orders/Labs/Results
Orders:
Orders
01/02/24 10:07
Electrocardiogram (*1) Urgent
Reason for Study: Atrial Fibrillation
EKG- Treatment ONCE
Complete Blood Count/With Diff Urgent
Comprehensive Metabolic Panel Urgent
Serum Osmolality Urgent
Comment: ADD ON
TSH Urgent
Comment: ADD ON
Urinalysis Reflex To Culture Urgent
Date Specimen was Collected: 01/02/24
Time Specimen was Collected: 10:07
Urine Microscopic Reflex Cult Urgent
Urine Sodium Urgent
Date Specimen was Collected: 01/02/24
Time Specimen was Collected: 10:07
Comment: ADD ON
Urine Culture Urgent
CYDNEY Source: U
Specimen Description:
Date Specimen was Collected: 01/02/24
Time Specimen was Collected: 10:07
01/02/24 Dinner
BRAT
01/02/24 15:24
Add On- LAB Urgent
Tests Added?: serum osmolality; urine sodium; TSH
0.9% Sodium Chloride 1000 ml [Nss] 1,000 ml IV BOLUS
CefTRIAXone [Rocephin] 1,000 mg IV NOW STA
01/02/24 17:58
Consult Cardiology [CARDIOLOGY CONSULT] Urgent
Consulting Provider: Ced Christianson
Was physician already notified: Yes
01/02/24 18:09
C DIFF [C difficile Antigen & Toxins] Urgent
CYDNEY Source: Feces/Stool
Specimen Description:
Date Specimen was Collected: 01/02/24
Time Specimen was Collected: 18:04
Stool Culture Urgent
CYDNEY Source: Feces/Stool
Specimen Description:
Date Specimen was Collected: 01/02/24
Time Specimen was Collected: 18:04
01/02/24 18:53
Admit/Transfer Patient As Directed
Co-Sign Provider:
Level of Care: Inpatient admission
Assign to:: Telemetry
Physician / Group: isidra
Diagnosis: diarrhea, uti, aflutter
Reason for Telemetry: Arrhythmia
Date to Stop Telemetry: 01/05/24
Time to Stop Telemetry: 11:00
Reason for Hospitalization: diarrhea, uti, aflutter
Expected length of stay greater than two midnights?: Yes
ELOS- Estimated Length of Stay in days: 2
I certify the patient meets the requirements for IP care: Yes
01/02/24 18:54
Code Status As Directed
Resuscitation Status: Full Code
01/02/24 18:55
Norovirus by PCR Urgent
CYDNEY Source: Feces/Stool
Specimen Description:
01/02/24 20:02
0.9% Sodium Chloride 1000 ml [Nss] 1,000 ml IV 100 mls/hr
Acetaminophen [Tylenol] 1,000 mg PO Q8HPRN PRN
Apixaban [Eliquis] 5 mg PO BID
Atorvastatin [Lipitor] 80 mg PO DAILY@1999
Dextrose 50%-Water [Dextrose 50% Syringe] 12.5 grams IV [id number] PRN
Gabapentin [Neurontin] 100 mg PO BID
Glucagon [GlucaGen] 1 mg IM PRN PRN
Loperamide [Imodium] 2 mg PO Q6HPRN PRN
Metoprolol [Lopressor] 25 mg PO BID
Ondansetron Injectable [Zofran] 4 mg IV Q6HPRN PRN
Piperacillin/Tazo 3.375 Gram [Zosyn] 3.375 gram in 50 ml IV Q6H
VANCOMYCIN Pharmacy to Dose [VANCOCIN Pharmacy to Dose] 1 each Pharmacy To Prepare [Call Pharmacy To Prepare] 0 ml IV PER PROTOCOL
01/02/24 20:02
VTE Contraindication Routine
VTE Mechanical Device Contraindication: Low Risk- LOS < 2 days
Pharmocologic Contraindication: Medical Contraindication
Risk assessment completed and pt is low risk: Yes
Activity As Directed
Activity Level: As Tolerated
Bedside Glucose Monitoring As Directed
Frequency: AC&HS
Additional Instructions:: Change to q6h if pt on TPN, tube feeding or not eating
Vital Signs As Directed
Frequency: Per unit guidelines
01/02/24 20:08
Cyclobenzaprine HCl [Flexeril] 5 mg PO TIDPRN PRN
01/03/24 Breakfast
NPO
Allow oral meds: Yes
Allow clear liquids: Sips of Clears
Complete Blood Count/With Diff IN AM
Comprehensive Metabolic Panel IN AM
Glycohemoglobin (HgbA1c) IN AM
01/03/24 07:30
Insulin Aspart Corrective Low [Novolog Flexpen-Low Resistance] See Protocol SC AC
01/03/24 08:00
Amiodarone [Pacerone] 200 mg PO DAILY
Clopidogrel Bisulfate [Plavix] 75 mg PO DAILY
Pantoprazole [Protonix] 40 mg PO DAILY
01/05/24 11:00
DC Protocol for Telemetry ONCE
Abnormal Lab Results
01/02/24
10:07
WBC 12.3 H 10^3/uL
(4.8-10.8)
RBC 3.75 L 10^6/uL
(4.20-5.40)
Hgb 10.5 L g/dL
(12.0-16.0)
Hct 31.4 L %
(37.0-47.0)
RDW 14.6 H %
(11.5-14.5)
Plt Count 786 H 10^3/uL
(130-400)
Abs Immat Gran (auto) 0.1 H 10^3/uL
(0-0.05)
Absolute Neuts (auto) 9.8 H 10^3/uL
(1.4-6.5)
Absolute Lymphs (auto) 1.1 L 10^3/uL
(1.2-3.4)
Absolute Monos (auto) 1.3 H 10^3/uL
(0.1-0.6)
Immature Gran % 0.6 H %
(0-0.5)
Neutrophils % 79.5 H %
(42.2-75.2)
Lymphocytes % 8.8 L %
(20.5-51.1)
Monocytes % 10.2 H %
(1.7-9.3)
Sodium 129 L mmol/L
(135-145)
Carbon Dioxide 18 L mmol/L
(22-30)
Glucose 159 H mg/dl
(70-99)
Serum Osmolality 271 L mOsm/kg
(275-300)
Urine Ketones Trace A
(Negative)
Ur Occult Blood Reflex 4+ A
(Negative)
Urine Nitrite (Reflex) Positive A
(Negative)
Leukocyte Esterase Rfl 2+ A
(Negative)
Urine WBC (Reflex) >100 A /HPF
(0-5)
Urine Bacteria (Reflex) Many A
(Negative)
Urine Sodium 18 L mmol/L
(30-90)
Urine Glucose 3+ A
(Negative)
Urine Albumin (Reflex) 1+ A
(Neg - Trace)
01/02/24 10:07
01/02/24 10:07
Vital Signs
Initial and Last Documented VS:
Initial Vital Signs
Temp Pulse Resp BP Pulse Ox
98.1 F 84 18 120/85 99
01/02/24 10:04 01/02/24 10:04 01/02/24 10:04 01/02/24 10:04 01/02/24 10:04
Last Documented Vital Signs
Temp Pulse Resp BP Pulse Ox
97.8 F 88 20 148/87 100
01/02/24 14:58 01/02/24 14:58 01/02/24 14:58 01/02/24 14:58 01/02/24 14:59
MDM/Problems Addressed
MDM/Problems Addressed:
68-year-old female presents with generalized weakness, likely on the basis of ongoing diarrhea/hypovolemia and urinary tract infection. She does have leukocytosis likely from UTI. While in the emergency department she was noted to go into rapid
atrial flutter, given her clinical syndrome do not feel it is prudent to rate control this patient would rather resuscitate and treat with antibiotics, will admit to the hospitalist service for further management
Comment
Comment:
EKG independently interpreted by me shows normal sinus rhythm at a rate of [address] changes concerning for ischemia
*Critical Care Note
Total Time (30-74mins, 75-104mins- exclusive of procedures): Not Applicable
ED Attending Note
-
Portions of this chart may have been created with voice recognition software.� Occasional wrong word or��sound alike� substitutions may have occurred due to the inherent limitations of voice recognition software.
Discharge Plan
Departure
Patient Disposition: Admit
Date of Disposition: 01/02/24
Time of Disposition: 17:57
Admit to: Telemetry
Presentation/result/management discussed w/ accepting MD/DO: Hospitalist
Discharge Problem:
Acute UTI, Atrial flutter, paroxysmal, Chronic hyponatremia
Interventions
Interventions:
*Risk Screen - Suicide Last Done: 01/02/24 10:06
*General Assessment Last Done: 01/02/24 10:06
*Neglect/Abuse Screening Last Done: 01/02/24 10:06
ED- Fall Risk Assessment Last Done: 01/02/24 16:10
ED- Cardiac Assessment Last Done: 01/02/24 14:59
ED- Pulmonary Assessment Last Done: 01/02/24 14:59
[2024-01-02] MEDS: NSS 1000 IV ×2 (15:54→21:38)
[2024-01-02] MEDS: ROCEPHIN 1000 MG IV (15:55)
[2024-01-02 16:24] LABS: Urine Sodium 18 mmol/L (30-90)
[2024-01-02 17:10] LABS: Osmolality Serum 271 mOsm/kg (275-300)
[2024-01-02 17:36] LABS: TSH 2.03 uIU/ml (0.47-4.68)
--- NOTE | 2024-01-02 17:41 | PTCARENOTE ---
Pt hit call gibbons after ambulating back to bed from bathroom. Stated that 'my heart feels like its racing'. HR in 130s on hall monitor. EKG obtained. EKG confirmed pt now in Aflutter. KELBY Rodriguez at bedside. Plan to consult cardiology and admit
pt. Pt resting in bed. HR now in 100s. at bedside.
--- NOTE | 2024-01-02 19:00 | HPS.HSE ---
Family Physician
-
Family Physician: Amish Park, DO
Chief Complaint
-
weakness, diarrhea, palpitations
History of Present Illness
68-year-old female past medical history of CAD status post CABG 1 month ago, ischemic cardiomyopathy, post CABG atrial flutter on Eliquis, diabetes, chronic hyponatremia, presenting with generalized malaise and weakness over the past few days. She
developed severe watery diarrhea, 6 times per day which occurs whenever she eats something 3 days ago. Denies any blood in stool. Has had some nausea but no vomiting. She has some bilateral lower abdominal pain. She has also had cloudy urine for
the past 3 days. She denies fevers or chills.
She denies eating out any restaurant or eating anything different or recent travel history. Denies any recent antibiotics.
Patient had CABG 1 month ago and developed postoperative atrial flutter. She was started on amiodarone which is currently being weaned off.
She has been having palpitations and some dizziness. Denies syncope. Denies any chest pain or shortness of breath.
Medical History
Past Medical History
Past Medical History: Reports Other ( CAD status post CABG 1 month ago, ischemic cardiomyopathy, post CABG atrial flutter on Eliquis, diabetes, chronic hyponatremia, )
Past Surgical History: Reports None and Other (CABG )
Social History
Tobacco: Non-smoker
Alcohol: None
Drug: None
Family History
Family History: Not pertinent
Allergies / Home Medications
Allergies reflects when Allergies were last updated in [employer].
Home Medications with original date entered in [employer]
Allergy/Medication List:
Allergies
Allergy/AdvReac Type Severity Reaction Status Date / Time
Sulfa (Sulfonamide Allergy Unknown Verified 01/02/24 10:04
Antibiotics)
Home Medications
clopidogrel 75 mg tablet 75 mg PO DAILY Blood clot prevention/tx #90 tabs 11/30/23
gabapentin 100 mg capsule 100 mg PO BID post operative pain #30 caps 11/30/23
metformin 500 mg tablet 500 mg PO BID@0800,1700 diabetes #60 tabs 11/30/23
pantoprazole 40 mg tablet,delayed release 40 mg PO DAILY Gi prophylaxis #90 tabs 11/30/23
acetaminophen 500 mg tablet (Tylenol Extra Strength) 1,000 mg PO Q8HPRN PRN mild to moderate pain 12/17/23
atorvastatin 80 mg tablet 80 mg PO DAILY@1999 High cholesterol 12/17/23
cyclobenzaprine 5 mg tablet 5 mg PO TID PRN muscle spasms 12/17/23
empagliflozin 10 mg tablet (Jardiance) 10 mg PO DAILY@1999 Diabetes 12/17/23
sennosides 8.6 mg tablet (Senokot) 8.6 mg PO DAILY PRN constipation 12/17/23
apixaban 5 mg tablet (Eliquis) 5 mg PO BID #60 tabs 12/18/23
metoprolol tartrate 25 mg tablet 25 mg PO BID #60 tabs 12/18/23
amiodarone 200 mg tablet (Pacerone) 200 mg PO DAILY 01/02/24
Review of Systems
-
History Source: Patient
A 12 point ROS was completed and negative except as noted: Yes
Constitutional: Reports No Symptoms
EENT: Reports No Symptoms
Respiratory: Reports No Symptoms
Cardiac: Reports See HPI
Abdomen/GI: Reports See HPI
: Reports See HPI
Musculoskeletal: Reports No Symptoms
Skin: Reports No Symptoms
Neurological: Reports No Symptoms
Endocrine: Reports No Symptoms
Hematologic/Lymphatic: Reports No Symptoms
Psych: Reports No Symptoms
Physical Exam
Vital Signs
Vital Signs
Temp Pulse Resp BP Pulse Ox
97.8 F 88 20 148/87 100
01/02/24 14:58 01/02/24 14:58 01/02/24 14:58 01/02/24 14:58 01/02/24 14:59
Physical Exam
General: Well Developed, Well Nourished and No Apparent Distress
HEENT: NormoCephalic, Moist mucous membranes and Atraumatic
Respiratory: Clear
Cardiac: S1/S2, Regular Rhythm and Tachycardia; No Murmur or Rub
GI: Soft, Non Distended, Normal Bowel Sounds and Tender; No Organomegaly
Rectal: Deferred by Provider
Musculoskeletal: No Clubbing, No Cyanosis and No Edema
Skin: No Rash
Neuro: Nonfocal/grossly intact
Laboratory Results
-
01/02/24 10:07
01/02/24 10:07
Laboratory Results
Total Bilirubin 0.5 mg/dl (0.2-1.3) 01/02/24 10:07
AST 21 U/L (14-36) 01/02/24 10:07
ALT 14 U/L (0-35) 01/02/24 10:07
Alkaline Phosphatase 83 U/L (38-126) 01/02/24 10:07
Data Reviewed
-
Lab Data: Labs Reviewed by me
Old Records: Reviewed
Impression/Plan
-
IMPRESSION:
PLAN:
# Severe diarrhea
-C. difficile negative
-Stool culture pending
-Check norovirus
-Imodium
-BRAT diet
-zosyn
# Urinary tract infection
# Recent urine culture with Enterococcus
-UA greater than 100 WBC
-Urine culture
-zosyn, vancomycin
#Post CABG atrial flutter with RVR exacerbated by volume loss from diarrhea
-Heart rates up to 120s to 130
-Fluid resuscitation
-Continue amiodarone
-Continue metoprolol
-Continue Eliquis
-Can use Cardizem if sustains at higher rates
-Cardiology consulted and may consider cardioversion tomorrow if no conversion to sinus
-N.p.o. past midnight
CAD status post CABG last month
-Continue statin, Plavix
-Continue gabapentin for postoperative pain
Ischemic cardiomyopathy
-Hold Jardiance
Type 2 diabetes
-Hold metformin
-Hold Jardiance
-Insulin sliding scale
Chronic hyponatremia
-Sodium close to baseline
-ER send urine sodium studies
-Monitor with IV fluids
Chronic anemia
-Hemoglobin stable
Full code
DVT prophylaxis�Eliquis
BRAT diet
[2024-01-02 20:17] VITALS: BMI 19.1
--- NOTE | 2024-01-02 20:50 | PHA.VAN.IN ---
Assessment
- Assessment
Renal Function: Appears similar to baseline (12/18/23 SCR = 0.7)
Concomitant Antimicrobials: ZOSYN
- Previous Dosing Experience
Previous Regimen: NONE
AUC Dosing Plan
- Dosing Variables
Dosing Weight (kg): 52.4
Dosing CrCl (ml/min): 73
Vd coefficient (L/kg): 0.7
- Empiric Dosing
Initial / Loading Dose: 1250MG
Maintenance Regimen: 500MG IV Q12H
Estimated AUC (mcg*h/mL): 433
Estimated Peak (mcg*h/mL): 25.2
Estimated Trough (mcg/ml): 12.3
Estimated Half Life (H): 10.7
Pharmacokinetics Vancomycin I
- -
Patient Age: 68
Patient Sex: Female
Vancomycin Day #: 1
Indication: Genito-Urinary Tract
Requesting Provider: DORA
Pertinent Antimicrobial Allergies:
Allergies
Sulfa (Sulfonamide Antibiotics) Allergy (Verified 01/02/24 10:04)
Unknown
Height / Weight:
Height 5 ft 3 in
Actual Weight 48.988 kg
IBW in k.4
- Vital Signs / Lab Results
Temp Pulse Resp BP Pulse Ox
97.8 F 88 20 148/87 100
01/02/24 14:58 01/02/24 14:58 01/02/24 14:58 01/02/24 14:58 01/02/24 14:59
Lab Results - Hematology
01/02/24
10:07
WBC 12.3 H
Lab Results - Chemistry
01/02/24
10:07
BUN 11
Creatinine 0.6
Albumin 4.0
Lab Results - Urine
01/02/24
10:07
Urine Nitrite (Reflex) Positive A
Leukocyte Esterase Rfl 2+ A
Urine WBC (Reflex) >100 A
Ur Squamous Epith Cells 6-10
Urine Bacteria (Reflex) Many A
Microbiology Results
01/02/24 18:[address] [facility] Antigen & Toxins - Final
Feces/Stool Negative for toxigenic C.difficile
[2024-01-02 21:29] VITALS: BP 101/68
[2024-01-02] MEDS: ELIQUIS 5 MG PO (21:29)
[2024-01-02] MEDS: ZOSYN 50 IV (21:29)
[2024-01-02] MEDS: TYLENOL 1000 MG PO (21:29)
[2024-01-02] MEDS: LOPRESSOR 25 MG PO (21:30)
[2024-01-02] MEDS: NEURONTIN 100 MG PO (21:30)
[2024-01-02] MEDS: IMODIUM 2 MG PO (21:30)
[2024-01-02] MEDS: LIPITOR 80 MG PO (21:38)
[2024-01-02] MEDS: VANCOCIN 275 MG IV (21:41)
[2024-01-02 21:44] VITALS: BMI 19.1
[2024-01-03] VITALS (8 sets, daily range): BP systolic 108–147; BP diastolic 60–88; BMI 19.1; BMI 19.7
[2024-01-03] MEDS: FLEXERIL 5 MG PO (01:06)
--- NOTE | 2024-01-03 01:20 | PTCARENOTE ---
nsr on monitor. confirmed w/ ekg. pt states palptiations subsided. will monitor.
[2024-01-03] MEDS: ZOSYN 50 IV ×4 (05:04→21:54)
[2024-01-03] MEDS: TYLENOL 1000 MG PO ×2 (05:21→21:54)
[2024-01-03] MEDS: VANCOCIN HCL 500 MG 100 IV (05:21)
[2024-01-03 05:23] LABS: % Basophils 0.5 % (0-2); % Eosinophils 0.8 % (0-6); % Immature Granulocytes 0.5 % (0-0.5); % Lymphocytes 9.7 % (20.5-51.1); % Monocytes 11.3 % (1.7-9.3); % Neutrophils 77.2 % (42.2-75.2); Absolute Basophils 0.1 10^3/uL (0-0.2); Absolute Eosinophils 0.1 10^3/uL (0-0.7); Absolute Immature Granulocytes 0.1 10^3/uL (0-0.05); Absolute Monocytes 1.1 10^3/uL (0.1-0.6); Absolute Neutrophils 7.6 10^3/uL (1.4-6.5); Hematocrit 28.1 % (37.0-47.0); Mean Corpuscular Volume 87.5 fL (81.0-99.0); Mean Platelet Volume 8.6 fL (7.4-10.4); Nucleated Red Blood Cells % 0 %; Platelet Count 605 10^3/uL (130-400); Red Blood Cell Count 3.21 10^6/uL (4.20-5.40); Red Cell Dist. Width 14.6 % (11.5-14.5); White Blood Cell Count 9.9 10^3/uL (4.8-10.8)
[2024-01-03] MEDS: PROTONIX 40 MG PO (08:29)
[2024-01-03 08:30] LABS: Glucose - Point of Care 132 mg/dl (70-99)
[2024-01-03] MEDS: NEURONTIN 100 MG PO ×2 (08:30→20:33)
[2024-01-03] MEDS: NOVOLOG FLEXPEN-LOW RESISTANCE SC ×2 (08:31→12:37)
[2024-01-03] MEDS: ELIQUIS 5 MG PO ×2 (08:31→20:34)
[2024-01-03] MEDS: PACERONE 200 MG PO (08:31)
[2024-01-03] MEDS: LOPRESSOR 25 MG PO ×2 (08:31→20:33)
[2024-01-03] MEDS: PLAVIX 75 MG PO (08:37)
--- NOTE | 2024-01-03 08:43 | PHA.VAN.FU ---
Vancomycin Assessment / Plan
- Assessment
Renal Function: No New Labs Today (repeat BMP pending - original specimen hemolyzed)
In the past 24 hrs, patient has been: Afebrile
Concomitant Antimicrobials: piperacillin/tazobactam
- Dosing Plan
Continue: Vanc 500mg Q12H
- Monitoring Plan
No level(s) ordered at this time: consider levels in next few days
- Follow Up
Pharmacy will continue to follow.
Vancomycin Follow UP
- -
Patient Age: 68
Patient Sex: Female
Vancomycin Day #: 2
Indication: Genito-Urinary Tract
Requesting Provider: Dr. Walsh
Pertinent Antimicrobial Allergies:
Sulfa (Sulfonamide Antibiotics) - Unknown
Height / Weight:
Height 5 ft 3 in
Actual Weight 49 kg
IBW in k.4
Pertinent Past Medical History: BMI ~19
- Vital Signs / Lab Results
Temp Pulse Resp BP Pulse Ox
98.4 F 75 17 129/67 100
01/03/24 03:00 01/03/24 05:08 01/03/24 05:08 01/03/24 05:08 01/02/24 14:59
Lab Results - Hematology
01/02/24 01/03/24
10:07 05:08
WBC 12.3 H 9.9
Lab Results - Chemistry
01/02/24 01/03/24
10:07 05:08
BUN 11 Cancelled
Creatinine 0.6 Cancelled
Estimated Creat Clear Cancelled
Albumin 4.0 Cancelled
Lab Results - Urine
01/02/24
10:07
Urine Nitrite (Reflex) Positive A
Leukocyte Esterase Rfl 2+ A
Ur Squamous Epith Cells 6-10
Microbiology Results
01/02/24 18:09 C. difficile [facility] Antigen & Toxins - Final
Feces/Stool Negative for toxigenic C.difficile
--- NOTE | 2024-01-03 09:01 | CON.CAR ---
Addendum entered and electronically signed by Andres Adrian MD 01/03/24 10:28:
Patient seen and examined in collaboration with SCHEDULE ANALYST; agree with below.
-68-year-old female who recently underwent CABG a little over 1 month ago who also has paroxysmal atrial fibrillation presenting with diarrhea; found to be in atrial flutter with RVR.
-Also found to have a UTI.
-The patient is now back in sinus rhythm after being treated supportively with antibiotics and IV fluids.
-The patient appears to be relatively stable from a cardiac standpoint and can continue her current cardiac medication regimen.
-No further recommendations at this time; outpatient follow-up with Cardiology as scheduled.
Original Note:
Consultation
Consultation Request
Date/Time Consultation Requested: 01/02/24 1758
Date/Time Consultation Performed: 01/03/24 0900
Requesting Provider: Dr. Walsh
Performing Provider: Tracie DUTTON for Dr. Adrian
Reason for Consultation: Atrial flutter
Medical History
-
Chief Complaint: weakness, cloudy urine, diarrhea, abdominal pain
History of Present Illness:
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 She came back to the hospital 12/17/23 with atrial flutter. She was started on amiodarone and converted to SR. She was also started on Eliquis. She is
here for evaluation of 5 days of shakiness, weakness, cloudy urine, diarrhea. She is being treated for a UTI and diarrhea is being evaluated. She is also complaining of abdominal pain. We are consulted since she had atrial flutter for about 4 hours
last night. She is now in SR. She has been given fluids and antibiotics, as well as loperamide.
Past Medical History
Past Medical History: Arrhythmias, CAD, Hypercholesterolemia and NIDDM
Social History
Personal:
Living: With Family
Family History
Family History: Reviewed & Not Pertinent
Allergies / Home Medications
Allergy/AdvReac Type Severity Reaction Status Date / Time
Sulfa (Sulfonamide Allergy Unknown Verified 01/02/24 10:04
Antibiotics)
�Medication �Instructions �Recorded �Confirmed �Type
clopidogrel 75 mg tablet 75 mg PO DAILY Blood clot 11/30/23 01/02/24 Rx
prevention/tx #90 tabs
gabapentin 100 mg capsule 100 mg PO BID post operative pain 11/30/23 01/02/24 Rx
#30 caps
metformin 500 mg tablet 500 mg PO BID@0800,1700 diabetes 11/30/23 01/02/24 Rx
#60 tabs
pantoprazole 40 mg tablet,delayed 40 mg PO DAILY Gi prophylaxis #90 11/30/23 01/02/24 Rx
release tabs
acetaminophen 500 mg tablet 1,000 mg PO Q8HPRN PRN mild to 12/17/23 01/02/24 History
(Tylenol Extra Strength) moderate pain
atorvastatin 80 mg tablet 80 mg PO DAILY@1999 High 12/17/23 01/02/24 History
cholesterol
cyclobenzaprine 5 mg tablet 5 mg PO TID PRN muscle spasms 12/17/23 01/02/24 History
empagliflozin 10 mg tablet 10 mg PO DAILY@1999 Diabetes 12/17/23 01/02/24 History
(Jardiance)
sennosides 8.6 mg tablet (Senokot) 8.6 mg PO DAILY PRN constipation 12/17/23 01/02/24 History
apixaban 5 mg tablet (Eliquis) 5 mg PO BID #60 tabs 12/18/23 01/02/24 Rx
metoprolol tartrate 25 mg tablet 25 mg PO BID #60 tabs 12/18/23 01/02/24 Rx
amiodarone 200 mg tablet (Pacerone) 200 mg PO DAILY 01/02/24 01/02/24 History
Review of Systems
-
History Source: Patient
All other systems: Negative unless noted
Cardiac: Palpitations (when in aflutter)
Abdomen/GI: Abdominal Pain and Diarrhea
Neurological: Weakness
Physical Exam
Vital Signs
Temp Pulse Resp BP Pulse Ox
98.4 F 75 17 129/67 100
01/03/24 03:00 01/03/24 05:08 01/03/24 05:08 01/03/24 05:08 01/02/24 14:59
Lab Results
01/03/24 05:08
Physical Exam
General: Well Developed, Well Nourished and No Apparent Distress
HEENT: Normocephalic and Anicteric
Respiratory: Clear and Non Labored Respirations
Cardiac: Regular Rhythm
Musculoskeletal: No Edema
Skin: Warm, Dry and Other (midsternal incision appears well healing without any redness, drainage, or swelling)
Neuro: AO x 3
Psych: Calm
Impression / Plan
-
UTI:
-being treated with ABX
Diarrhea, abdominal pain:
-work-up and management per primary team
-s/p IVF and loperamide. Stool tests pending.
Atrial flutter, typical:
-recurrence in setting of acute illness, now back in SR
-continue amiodarone and Eliquis
CAD s/ recent HI and CABG 10/2023:
-stable, continue Eliquis/plavix, statin, and BB
Data Reviewed
-
EKG: Tracing Personally Visualized and interpreted (NSR 69 BPM)
Medical Tests (Nuc Med, Echo etc): Report Reviewed by me (echo 12/18/23: EF 55-60%. Hypokinesis of the basal and mid septal etienne (perhaps from postoperative state). Normal right ventricular systolic function. No significant valvular disease. No
pericardial effusion.)
Labs: Labs Reviewed by me
[2024-01-03 09:10] LABS: ALT (SGPT) 11 U/L (0-35); AST (SGOT) 19 U/L (14-36); Albumin 3.2 g/dl (3.5-5.0); Alkaline Phosphatase 58 U/L (38-126); Blood Urea Nitrogen 9 mg/dl (7-17); Carbon Dioxide 22 mmol/L (22-30); Chloride 103 mmol/L (98-107); Estimated Creatinine Clearance 68 ml/min; Glucose 122 mg/dl (70-99); Potassium 3.8 mmol/L (3.5-5.1); Sodium 134 mmol/L (135-145); Total Bilirubin 0.3 mg/dl (0.2-1.3); Total Protein 5.8 g/dl (6.3-8.2); eGFR > 60.00
[2024-01-03] MEDS: ZOFRAN 4 MG IV (10:58)
--- NOTE | 2024-01-03 11:28 | W.PN.HOSP.TC ---
Today's Communication/Plan
-
start LR diet
Cut back IV fluids
Stop Imodium
Stop vancomycin
Out of bed and ambulate
Watch for any further diarrhea
Check magnesium and iron studies
Assessment / Plan
Assessment / Plan
68-year-old female with weakness diarrhea and palpitations. Patient had CABG 1 month ago. Says everything started Sunday. Denies eating out. Initially thought from AMiodarone. NO vomiting. Watery diarrhea. Mild crams but no pain.
CVS: S1-S2 normal
Chest: CTA B/L, Midline scar noted, healing.
Abdomen: Soft, No tenderness or guarding, Bowel sounds present
Extremities: No edema, normal pulses
SPRUE KNOCKER: Non focal exam
# Severe diarrhea
C. difficile negative
Stool studies pending
Hold further Imodium.
Start LR diet and watch
Non toxic appearing.
# UTI
Started on Zosyn. Await Cx
Stop Vanco
# Post CABG A-flutter with RVR exacerbated by volume loss from diarrhea
Converted to sinus rhythm
Fluid resuscitation
Continue amiodarone, metoprolol Eliquis
Cardiology consultation
# Coronary disease status post CABG last month
Continue statin, Plavix, beta-patrick
Also on gabapentin for postoperative pain
# Ischemic cardiomyopathy
# Hyperlipidemia-statin
# Diabetes-hold metformin and Jardiance
Continue sliding scale coverage
Hemoglobin A1c pending
# Chronic hyponatremia-improving with fluids likely hypovolemic
# Chronic anemia-check iron studies
# Underweight
# Thrombocytosis-May need outpatient hematology evaluation
# Ex-smoker
# DVT prophylaxis-Eliquis
# Full code
Anticipated Discharge: Within 24 hours
Subjective/Interval History
-
Date of Service: January 03, 2024
Objective Data
-
Labs:
Laboratory Results
01/03/24 01/03/24
05:08 08:45
WBC 9.9
Hgb 9.0 L
Hct 28.1 L
Plt Count 605 H D
Sodium Cancelled 134 L
Potassium Cancelled 3.8
Chloride Cancelled 103
Carbon Dioxide Cancelled 22
BUN Cancelled 9
Creatinine Cancelled 0.6
Glucose Cancelled 122 H
Calcium Cancelled 8.0 L
Total Bilirubin Cancelled 0.3
AST Cancelled 19
ALT Cancelled 11
Alkaline Phosphatase Cancelled 58
Vital Signs:
Vital Signs
Temp Pulse Resp BP Pulse Ox
98.1 F 68 20 143/77 99
01/03/24 09:52 01/03/24 09:45 01/03/24 09:45 01/03/24 08:31 01/03/24 09:52
[2024-01-03] MEDS: NSS 1000 IV (12:26)
[2024-01-03 12:31] LABS: Glucose - Point of Care 123 mg/dl (70-99)
[2024-01-03 13:14] LABS: Glycohemoglobin (HgbA1c) 7.7 % (4.0-5.6)
[2024-01-03 13:56] LABS: Iron 36 ug/dl (37-170)
[2024-01-03 14:05] LABS: Percent Saturation 14 % (20-50); Total Iron Binding Capacity 252 ug/dl (265-497)
[2024-01-03 14:47] LABS: Vitamin B12 546 pg/ml (239-931)
[2024-01-03 17:36] LABS: Glucose - Point of Care 175 mg/dl (70-99)
[2024-01-03] MEDS: NOVOLOG FLEXPEN-LOW RESISTANCE 1 UNITS SC (17:56)
[2024-01-03] MEDS: NSS IV (18:00)
[2024-01-03] MEDS: LIPITOR 80 MG PO (20:33)
[2024-01-03 21:52] LABS: Glucose - Point of Care 200 mg/dl (70-99)
[2024-01-04 03:41] VITALS: BP 120/54
[2024-01-04] MEDS: NSS 1000 IV (04:14)
[2024-01-04] MEDS: ZOSYN 50 IV ×4 (04:14→23:26)
[2024-01-04 07:11] VITALS: BP 150/70
[2024-01-04 07:16] LABS: Glucose - Point of Care 129 mg/dl (70-99)
[2024-01-04 07:35] LABS: Hematocrit 25.9 % (37.0-47.0); Hemoglobin 8.3 g/dL (12.0-16.0); Mean Corpuscular Hgb 27.5 pg (27.0-31.0); Mean Corpuscular Volume 85.8 fL (81.0-99.0); Mean Platelet Volume 8.9 fL (7.4-10.4); Platelet Count 582 10^3/uL (130-400); Red Blood Cell Count 3.02 10^6/uL (4.20-5.40); Red Cell Dist. Width 14.9 % (11.5-14.5); White Blood Cell Count 10.4 10^3/uL (4.8-10.8)
[2024-01-04 07:45] LABS: Blood Urea Nitrogen 7 mg/dl (7-17); Calcium 7.6 mg/dl (8.4-10.2); Carbon Dioxide 19 mmol/L (22-30); Chloride 107 mmol/L (98-107); Estimated Creatinine Clearance 70 ml/min; Glucose 117 mg/dl (70-99); Potassium 3.4 mmol/L (3.5-5.1); Sodium 135 mmol/L (135-145); eGFR > 60.00
[2024-01-04] MEDS: NOVOLOG FLEXPEN-LOW RESISTANCE SC (08:01)
[2024-01-04] MEDS: LOPRESSOR 25 MG PO ×2 (08:02→19:41)
[2024-01-04] MEDS: ELIQUIS 5 MG PO ×2 (08:02→19:41)
[2024-01-04] MEDS: PACERONE 200 MG PO (08:03)
[2024-01-04] MEDS: PROTONIX 40 MG PO (08:03)
[2024-01-04] MEDS: NEURONTIN 100 MG PO ×2 (08:03→19:41)
[2024-01-04] MEDS: PLAVIX 75 MG PO (08:03)
[2024-01-04] MEDS: KCL 40 MEQ PO (09:07)
[2024-01-04 09:17] LABS: Magnesium 1.1 mg/dl (1.6-2.3)
[2024-01-04] MEDS: MAGNESIUM SULFATE 100 IV (09:51)
--- NOTE | 2024-01-04 09:59 | W.PN.HOSP.TC ---
Addendum entered and electronically signed by Vita Nielsen MD 01/04/24 10:10:
Vit D Def -Replace
Pt has no diarrhea now
Original Note:
Today's Communication/Plan
-
Replace potassium and magnesium
Hematology evaluation
CT of the abdomen and pelvis
Change Zosyn to ceftriaxone Flagyl
Follow labs in the morning
Assessment / Plan
Assessment / Plan
68-year-old female with weakness diarrhea and palpitations. Patient had CABG 1 month ago. Says everything started Sunday. Denies eating out. Initially thought from AMiodarone. NO vomiting. Watery diarrhea. Mild crams but no pain.
CVS: S1-S2 normal
Chest: CTA B/L, Midline scar noted, healing.
Abdomen: Has pain in the right CVA and also lower quadrants.
Extremities: No edema, normal pulses
LUGGAGE ATTENDANT: Non focal exam
# Severe diarrhea
C. difficile negative
Stool studies pending
Will change AB to Rocephin and Flagyl.
Non toxic appearing.
Ct A/P given pain
# Hypomagnesemia-replace
# Hypokalemia-replace
# UTI
Cx noted
Will change AB to Rocephin
Started on Zosyn. Await Cx
# Post CABG A-flutter with RVR exacerbated by volume loss from diarrhea
Converted to sinus rhythm
Stop IVF
Continue amiodarone, metoprolol Eliquis
Cardiology consulted.
# Coronary disease status post CABG last month
Continue statin, Plavix, beta-patrick
Also on gabapentin for postoperative pain
# Ischemic cardiomyopathy
# Hyperlipidemia-statin
# Diabetes-
Hold metformin and Jardiance (IV dye and UTI)
Continue sliding scale coverage
Hemoglobin A1c 7.7.
May not be completely reliable with anemia
# Chronic hyponatremia-normalized
Stopped IV fluids
# Underweight
# Thrombocytosis-Patient was made aware
Also anemic
Will request Heme eval
Will defer patient needs IV iron to hematology
# Ex-smoker
# DVT prophylaxis-Eliquis
# Full code
Discussed with family at bedside
Discussed with hematology oncology
time spent 51 min
Anticipated Discharge: Within 24 hours
Subjective/Interval History
-
Date of Service: January 04, 2024
Objective Data
-
Labs:
Laboratory Results
01/04/24
06:03
WBC 10.4
Hgb 8.3 L
Hct 25.9 L
Plt Count 582 H
Sodium 135
Potassium 3.4 L
Chloride 107
Carbon Dioxide 19 L
BUN 7
Creatinine 0.5 L
Glucose 117 H
Calcium 7.6 L
Vital Signs:
Vital Signs
Temp Pulse Resp BP Pulse Ox
98.3 F 74 18 150/70 100
01/04/24 07:11 01/04/24 08:03 01/04/24 07:11 01/04/24 08:03 01/04/24 07:11
I&O
01/03/24 01/04/24 01/05/24
06:59 06:59 06:59
Intake Total 1280 / 1280
Balance 1280 / 1280
[2024-01-04 10:06] LABS: Vitamin D, 25-OH*** < 12.8 ng/mL (30-80)
--- NOTE | 2024-01-04 10:25 | CON.ONC ---
Impression
Impression
- thrombocytosis
- moderate anemia
- CAD s/p CABG
Plan
Plan
# Thrombocytosis
- on initial presentation in October her platelet count was high at 620K and during her admission with CT and this admission plt count has varied from 350 to 885K range with several potential clinical factors that could have contributed to
fluctuations including dehydration, fluid resuscitation, blood loss and repletion, and now infection. she had weight loss due to decreased appetite prior to CT diagnosis. Denies CARY, chest pain, rash, itching. WBC within normal range, hgb was normal
at 11.0 g/dl on initial presentation in october however also has had variable from medical interventions.
- iron studies likely represent low storage with IS 14% and ferritin 125 ng/ml however in setting of active infection recent cardiac surgery. she would likely benefit from IV iron repletion however will defer starting for another 48 hours with
active UTI on abx.
- check ESR. I will send JAK2 V617F mutation testing in-pt however recommend outpt hematology follow-up once back to clinical baseline without active infection to re-assess 'baseline' cell count values and determine if additional MPN testing is
appropriate.
Patient History
History of Present Illness
68-year-old female past medical history of CAD status post CABG 1 month ago, ischemic cardiomyopathy, post CABG atrial flutter on Eliquis, diabetes, chronic hyponatremia, who presented with generalized malaise and weakness. She also noted some
nausea, diarrhea as well as cloudy urine. stool testing negative for C diff, shiga toxin. Urine culture positive for E coli. Hematology consulted for thrombocytosis.
CBC on this admission showed a plt count of 786K which is similar to value on discharge 12/17 at which time it was 766K. It appears to be downtrending with CBC today showing 582K. When she initially presented in October her plt count was 620k with
downtrend to normal range 11/25 however may have been element of diluation as this was day of CABG at which time she developed drop in hgb from ~ 11.0 g/dl on admission to 6.6 g/dl and received fluids, blood products. During hospital course plt count
appeared to be uptrending, up to 885K on 12/16. After receiving blood products post-op her hgb was fairly stable and slowly improving up to 9.3 g/dl on 12/17 and was 10.5 on this initial admission with drop to 8.3 g/dl today after standing fluids past
24-48 hours. Denies melena, BRBPR, hematuria. Denies headaches, rashes, itching, fevers. Prior to admission in october she admits she did not see doctors regularly and cannot recall last time she had labs.
Past-Medical/Surgical History
- CAD s/p CABG
- atrial fibrillation on Eliquis
- diabetes
Patient Medication
�Medication �Instructions �Recorded �Confirmed �Last Taken �Type
clopidogrel 75 mg tablet 75 mg PO DAILY Blood clot 11/30/23 01/02/24 01/02/24 Rx
prevention/tx #90 tabs
gabapentin 100 mg capsule 100 mg PO BID post operative pain 11/30/23 01/02/24 01/02/24 Rx
#30 caps
metformin 500 mg tablet 500 mg PO BID@0800,1700 diabetes 11/30/23 01/02/24 01/02/24 Rx
#60 tabs
pantoprazole 40 mg tablet,delayed 40 mg PO DAILY Gi prophylaxis #90 11/30/23 01/02/24 01/02/24 Rx
release tabs
acetaminophen 500 mg tablet 1,000 mg PO Q8HPRN PRN mild to 12/17/23 01/02/24 12/17/23 History
(Tylenol Extra Strength) moderate pain
atorvastatin 80 mg tablet 80 mg PO DAILY@1999 High 12/17/23 01/02/24 01/01/24 History
cholesterol
cyclobenzaprine 5 mg tablet 5 mg PO TID PRN muscle spasms 12/17/23 01/02/24 12/17/23 History
empagliflozin 10 mg tablet 10 mg PO DAILY@1999 Diabetes 12/17/23 01/02/24 01/01/24 History
(Jardiance)
sennosides 8.6 mg tablet (Senokot) 8.6 mg PO DAILY PRN constipation 12/17/23 01/02/24 1 Week Ago History
~12/10/23
apixaban 5 mg tablet (Eliquis) 5 mg PO BID #60 tabs 12/18/23 01/02/24 01/02/24 Rx
metoprolol tartrate 25 mg tablet 25 mg PO BID #60 tabs 12/18/23 01/02/24 01/02/24 Rx
amiodarone 200 mg tablet (Pacerone) 200 mg PO DAILY 01/02/24 01/02/24 01/02/24 History
Active Medications
Generic Name Dose Route Start Last Admin
Trade Name Freq PRN Reason Stop Dose Admin
Acetaminophen 1,000 mg 01/02/24 20:02 01/03/24 21:54
Acetaminophen 500 Mg Tablet PO 01/30/24 20:01 1,000 mg
Q8HPRN PRN Administration
mild to moderate pain
Amiodarone HCl 200 mg 01/03/24 08:00 01/04/24 08:03
Amiodarone 200 Mg Tablet PO 01/31/24 07:59 200 mg
DAILY MARY Administration
Apixaban 5 mg 01/02/24 20:02 01/04/24 08:02
Apixaban (Eliquis) 5 Mg Tablet PO 01/30/24 20:01 5 mg
BID MARY Administration
Atorvastatin Calcium 80 mg 01/02/24 20:02 01/03/24 20:33
Atorvastatin (Lipitor) 80 Mg Tablet PO 01/30/24 20:01 80 mg
DAILY@2000 MARY Administration
Ceftriaxone Sodium 1,000 mg 01/04/24 10:00
Ceftriaxone 1000 Mg / 10 Ml Vial IV
Q24H MARY
Cholecalciferol 50 mcg 01/05/24 08:00
Cholecalciferol (Vitamin D3) 50 Mcg Tablet (2,000 Units) PO 02/02/24 07:59
DAILY MARY
Clopidogrel Bisulfate 75 mg 01/03/24 08:00 01/04/24 08:03
Clopidogrel 75 Mg Tablet PO 01/31/24 07:59 75 mg
DAILY MARY Administration
Cyclobenzaprine HCl 5 mg 01/02/24 20:08 01/03/24 01:06
Cyclobenzaprine 10 Mg Tablet PO 01/30/24 20:07 5 mg
TIDPRN PRN Administration
muscle spasms
Dextrose 12.5 grams 01/02/24 20:02
Dextrose 50% (0.5 Grams/Ml) 50 Ml Syringe IV 01/30/24 20:01
[id number] PRN
hypoglycemia
Protocol
Gabapentin 100 mg 01/02/24 20:02 01/04/24 08:03
Gabapentin 100 Mg Capsule PO 01/30/24 20:01 100 mg
BID MARY Administration
Glucagon 1 mg 01/02/24 20:02
Glucagon 1 Mg Vial IM 01/30/24 20:01
PRN PRN
hypoglycemia
Protocol
Magnesium Sulfate 4 gram in 100 mls @ 25 mls/hr 01/04/24 08:39 01/04/24 09:51
Magnesium Sulfate IV 01/04/24 12:38 100 mls
NOW STA Administration
Metronidazole 100 mls @ 100 mls/hr 01/04/24 12:00
Flagyl 500 Mg IV
Q8H MARY
Insulin Aspart 0 units 01/03/24 07:30 01/04/24 08:01
Insulin Aspart Low Resistance 300 Units/3 Ml Pen.Injctr SC 01/31/24 07:29 Not Given
AC MARY
Protocol
Iohexol 0 ml 01/04/24 11:00
Iohexol (240 Mg/Ml) 50 Ml Cat Scan PO 01/04/24 11:01
ONCE ONE
Protocol
Metoprolol Tartrate 25 mg 01/02/24 20:02 01/04/24 08:02
Metoprolol 25 Mg Regular Release Tablet PO 01/30/24 20:01 25 mg
BID MARY Administration
Ondansetron HCl 4 mg 01/02/24 20:02 01/03/24 10:58
Ondansetron 4 Mg/2 Ml Vial IV 01/30/24 20:01 4 mg
Q6HPRN PRN Administration
nausea and vomiting
Pantoprazole Sodium 40 mg 01/03/24 08:00 01/04/24 08:03
Pantoprazole 40 Mg Delayed Release Tablet PO 01/31/24 07:59 40 mg
DAILY MARY Administration
Sodium Chloride 0 flush 01/02/24 21:00
Sodium Chloride 0.9% (Flush) Syringe IV 01/30/24 20:59
PER PROTOCOL MARY
Sterile Water 10 ml 01/04/24 10:00
Sterile Water For Injection 10 Ml Vial IV 02/01/24 09:59
Q24H MARY
Review of Systems
-
History Source: Patient
Constitutional: Reports Weight Loss and No Appetite; Denies Fever
Respiratory: Denies Cough or Trouble Breathing
Cardiac: Denies Chest Pain
GI: Reports Diarrhea; Denies Nausea, Bloody Stools or Black Stools
: Denies Bleeding
Musculoskeletal: Denies Edema
Neuro: Denies Headache
Hematologic/Lymphatic: Denies Bleeding or Bruising
Physical Exam
-
General: Well Developed, Well Nourished and No Apparent Distress
HEENT: Negative Jaundice
Pulmonary: Clear; Negative Rales
Musculoskeletal: No Clubbing and No Edema
Neurology: Non Focal
Hematologic / Lymphatic: No Lymphadenopathy and No Petechiae
Labs
Lab Results
WBC 10.4 10^3/uL (4.8-10.8) 01/04/24 06:03
RBC 3.02 10^6/uL (4.20-5.40) L 01/04/24 06:03
Hgb 8.3 g/dL (12.0-16.0) L 01/04/24 06:03
Hct 25.9 % (37.0-47.0) L 01/04/24 06:03
MCV 85.8 fL (81.0-99.0) 01/04/24 06:03
MCH 27.5 pg (27.0-31.0) 01/04/24 06:03
MCHC 32.0 g/dL (33.0-37.0) L 01/04/24 06:03
RDW 14.9 % (11.5-14.5) H 01/04/24 06:03
Plt Count 582 10^3/uL (130-400) H 01/04/24 06:03
MPV 8.9 fL (7.4-10.4) 01/04/24 06:03
Abs Immat Gran (auto) 0.1 10^3/uL (0-0.05) H 01/03/24 05:08
Absolute Neuts (auto) 7.6 10^3/uL (1.4-6.5) H 01/03/24 05:08
Absolute Lymphs (auto) 1.0 10^3/uL (1.2-3.4) L 01/03/24 05:08
Absolute Monos (auto) 1.1 10^3/uL (0.1-0.6) H 01/03/24 05:08
Absolute Eos (auto) 0.1 10^3/uL (0-0.7) 01/03/24 05:08
Absolute Basos (auto) 0.1 10^3/uL (0-0.2) 01/03/24 05:08
Immature Gran % 0.5 % (0-0.5) 01/03/24 05:08
Neutrophils % 77.2 % (42.2-75.2) H 01/03/24 05:08
Lymphocytes % 9.7 % (20.5-51.1) L 01/03/24 05:08
Monocytes % 11.3 % (1.7-9.3) H 01/03/24 05:08
Eosinophils % 0.8 % (0-6) 01/03/24 05:08
Basophils % 0.5 % (0-2) 01/03/24 05:08
Creatinine 0.5 mg/dL (0.6-1.0) L 01/04/24 06:03
Vital Signs
Vital Signs
Temp Pulse Resp BP Pulse Ox
98.3 F 74 18 150/70 100
01/04/24 07:11 01/04/24 08:03 01/04/24 07:11 01/04/24 08:03 01/04/24 07:11
[2024-01-04] MEDS: OMNIPAQUE 50 ML PO (10:42)
[2024-01-04 11:05] VITALS: BP 151/70
[2024-01-04 11:40] LABS: Erythrocyte Sed Rate 34 mm/hour (0-20)
[2024-01-04] MEDS: DRISDOL (VITAMIN D2) 50000 UNITS PO (11:41)
[2024-01-04] MEDS: TYLENOL 1000 MG PO ×2 (11:42→19:42)
[2024-01-04 11:58] LABS: Glucose - Point of Care 193 mg/dl (70-99)
[2024-01-04] MEDS: NOVOLOG FLEXPEN-LOW RESISTANCE 1 UNITS SC ×2 (12:33→18:04)
[2024-01-04] MEDS: ROCEPHIN 1000 MG IV (14:18)
[2024-01-04] MEDS: STERILE WATER FOR INJECTION 10 ML IV (14:19)
[2024-01-04] MEDS: FLAGYL 500 MG 100 IV (14:52)
--- NOTE | 2024-01-04 15:03 | CM ---
Alert awake oriented patient who lives with her Elier who lives in a 2 story home with 1 step to enter and bed and bathroom on first floor.She is independent in driving and in all activities of daily living.Offered VN she declined.Her
will drive her home at ar.
Offered VN she decline need.
No adaptive devices
Never had VN/SNF
Pharmacy [facility]
PCP Dr Park
PLAN Home declined VN
[2024-01-04 15:15] VITALS: BP 131/63
--- NOTE | 2024-01-04 17:27 | W.PN.UPDATE ---
Update Note
Progress Note Update
CT showed acute sigmoid diverticulitis. Patient mild lower quadrant discomfort on exam this morning
Pt made aware
She had diarrhea and diet was advanced to low residue diet
Had 2 more episodes of diarrhea today
Will admit to colorectal opinion.
[2024-01-04 17:39] LABS: Glucose - Point of Care 198 mg/dl (70-99)
[2024-01-04 19:17] VITALS: BP 158/71
[2024-01-04] MEDS: LIPITOR 80 MG PO (19:41)
[2024-01-04 21:15] LABS: Glucose - Point of Care 226 mg/dl (70-99)
[2024-01-04 23:12] VITALS: BP 131/68
[2024-01-05 03:19] VITALS: BP 124/63
[2024-01-05] MEDS: ZOSYN 50 IV (05:38)
[2024-01-05] MEDS: TYLENOL 1000 MG PO ×2 (05:50→20:25)
[2024-01-05 07:00] VITALS: BP 164/76
[2024-01-05 07:10] LABS: Glucose - Point of Care 127 mg/dl (70-99)
[2024-01-05] MEDS: ELIQUIS 5 MG PO ×2 (07:16→20:21)
[2024-01-05] MEDS: PROTONIX 40 MG PO (07:16)
[2024-01-05] MEDS: NEURONTIN 100 MG PO ×2 (07:16→20:21)
[2024-01-05] MEDS: VITAMIN D3 (cholecalciferol) 50 MCG PO (07:16)
[2024-01-05] MEDS: PLAVIX 75 MG PO (07:16)
[2024-01-05] MEDS: LOPRESSOR 25 MG PO ×2 (07:17→20:22)
[2024-01-05] MEDS: PACERONE 200 MG PO (07:17)
[2024-01-05] MEDS: NOVOLOG FLEXPEN-LOW RESISTANCE SC ×2 (07:20→16:26)
[2024-01-05 07:22] LABS: Hematocrit 27.8 % (37.0-47.0); Hemoglobin 9.1 g/dL (12.0-16.0); Mean Corp Hgb Conc. 32.7 g/dL (33.0-37.0); Mean Corpuscular Hgb 27.8 pg (27.0-31.0); Mean Platelet Volume 8.6 fL (7.4-10.4); Platelet Count 637 10^3/uL (130-400); Red Blood Cell Count 3.27 10^6/uL (4.20-5.40); Red Cell Dist. Width 14.9 % (11.5-14.5); White Blood Cell Count 9.9 10^3/uL (4.8-10.8)
[2024-01-05 08:24] LABS: Blood Urea Nitrogen 5 mg/dl (7-17); Calcium 8.6 mg/dl (8.4-10.2); Carbon Dioxide 18 mmol/L (22-30); Chloride 106 mmol/L (98-107); Estimated Creatinine Clearance 72 ml/min; Glucose 121 mg/dl (70-99); Magnesium 1.9 mg/dl (1.6-2.3); Potassium 4.3 mmol/L (3.5-5.1); Sodium 134 mmol/L (135-145); eGFR > 60.00
--- NOTE | 2024-01-05 10:38 | CON.CRS ---
Consultation
-
Date/Time Consultation Requested: 01/04/24 1726
Requesting Provider: jakob
Reason for Consultation: Diverticulitis
Medical History
-
Chief Complaint: diarrhea and abdominal pain
History of Present Illness:
Ms De La Vega is a 68 yo female with a h/o NM, ischemic cardiomyopathy, DM and CABG 5-6 weeks ago with subsequent development of aflutter (on Eliquis) who presents this admission with significant fatigue and suprapubic pain and diarrhea. She was
diagnosed with a UTI and was initiated on antibiotics. She has had mild lower abdominal pain with mild tenderness to the LLQ which has persisted although improved as has diarrhea. She reported some nausea initially but this has improved. She denies
fevers or chills. She denies hematochezia. She has been tolerating a regular diet and notes no increase in pain with food intake although does have diarrhea shortly after meals.
Past Medical History
Past Medical History: Arrhythmias (aflutter on Eliquis), CAD, NIDDM, NM and Other (ischemic cm)
Past Surgical History: Cardiac (CABG )
Social History
Tobacco: Former Smoker (smoked for 10 years, recently quit given cardiac issues)
Alcohol: Occasional ([id number] or so)
Family History
Family History: Other (Mother with diverituclitis, no family hx of colon ca)
Allergies / Home Medications
Allergy/AdvReac Type Severity Reaction Status Date / Time
Sulfa (Sulfonamide Allergy Unknown Verified 01/02/24 10:04
Antibiotics)
�Medication �Instructions �Recorded �Confirmed �Type
clopidogrel 75 mg tablet 75 mg PO DAILY Blood clot 11/30/23 01/02/24 Rx
prevention/tx #90 tabs
gabapentin 100 mg capsule 100 mg PO BID post operative pain 11/30/23 01/02/24 Rx
#30 caps
metformin 500 mg tablet 500 mg PO BID@0800,1700 diabetes 11/30/23 01/02/24 Rx
#60 tabs
pantoprazole 40 mg tablet,delayed 40 mg PO DAILY Gi prophylaxis #90 11/30/23 01/02/24 Rx
release tabs
acetaminophen 500 mg tablet 1,000 mg PO Q8HPRN PRN mild to 12/17/23 01/02/24 History
(Tylenol Extra Strength) moderate pain
atorvastatin 80 mg tablet 80 mg PO DAILY@1999 High 12/17/23 01/02/24 History
cholesterol
cyclobenzaprine 5 mg tablet 5 mg PO TID PRN muscle spasms 12/17/23 01/02/24 History
empagliflozin 10 mg tablet 10 mg PO DAILY@1999 Diabetes 12/17/23 01/02/24 History
(Jardiance)
sennosides 8.6 mg tablet (Senokot) 8.6 mg PO DAILY PRN constipation 12/17/23 01/02/24 History
apixaban 5 mg tablet (Eliquis) 5 mg PO BID #60 tabs 12/18/23 01/02/24 Rx
metoprolol tartrate 25 mg tablet 25 mg PO BID #60 tabs 12/18/23 01/02/24 Rx
amiodarone 200 mg tablet (Pacerone) 200 mg PO DAILY 01/02/24 01/02/24 History
Review of Systems
-
History Source: Patient
All other systems: Negative unless noted
A 10 point review of systems was completed, and was negative except as per HPI.
Physical Exam
Vital Signs
Temp 97.8 F 01/05/24 07:00
Pulse 72 01/05/24 07:17
Resp Rate 18 01/05/24 07:00
Blood pressure 164/76 01/05/24 07:17
SaO2 100 01/05/24 07:00
01/04/24 01/05/24 01/06/24
06:59 06:59 06:59
Actual Weight 50.394 kg 51.256 kg
Body Mass Index (BMI) 20.0
Lab Results / Allergies
01/05/24 07:00
01/05/24 07:00
WBC 9.9 10^3/uL (4.8-10.8) 01/05/24 07:00
Hgb 9.1 g/dL (12.0-16.0) L 01/05/24 07:00
Hct 27.8 % (37.0-47.0) L 01/05/24 07:00
Plt Count 637 10^3/uL (130-400) H 01/05/24 07:00
Abs Immat Gran (auto) 0.1 10^3/uL (0-0.05) H 01/03/24 05:08
Neutrophils % 77.2 % (42.2-75.2) H 01/03/24 05:08
Allergy/AdvReac Type Severity Reaction Status Date / Time
Sulfa (Sulfonamide Allergy Unknown Verified 01/02/24 10:04
Antibiotics)
Physical Exam
General: Well Developed and Well Nourished
HEENT: Moist Mucous Membranes
Respiratory: Non Labored Respirations
GI: Soft
Skin: Warm and Dry
Neuro: Awake, Alert and AO x 3
Psych: Calm
Assessment / Plan
-
Ms De La Vega is a 68 yo female with a h/o NM, ischemic cardiomyopathy, DM and CABG 5-6 weeks ago with subsequent development of aflutter (on Eliquis) who presents this admission with significant fatigue and suprapubic pain and diarrhea. She has been on
abx for UTI this presentation but as GI symptoms persisted, CT imaging was preformed with acute sigmoid diverticulitis noted without perforation or abscess (uncomplicated). Leukocytosis present on admission and now resolved. Overall, improving and
tolerating diet without worsening pain. AFVSS.
No plans for emergent surgery this presentation. Continue medical management with antibiotics and supportive measures
--Continue LRD
--Continue ABX
--Discussed OP follow up for colonoscopy once this episode has resolved
Surgery to follow peripherally, please call with questions/concerns
[2024-01-05 11:00] VITALS: BP 143/80
[2024-01-05 11:28] LABS: Glucose - Point of Care 270 mg/dl (70-99)
--- NOTE | 2024-01-05 12:10 | W.PN.HOSP.TC ---
Today's Communication/Plan
-
Narrow ab and watch for any diarrhea
Add probiotics
Assessment / Plan
Assessment / Plan
68-year-old female with weakness diarrhea and palpitations. Patient had CABG 1 month ago. Says everything started Sunday. Denies eating out. Initially thought from AMiodarone. NO vomiting. Watery diarrhea. Mild crams but no pain.
CVS: S1-S2 normal
Chest: CTA B/L, Midline scar noted, healing.
Abdomen: mild lower Q discomfort.
Extremities: No edema, normal pulses
INSURANCE COORDINATOR: Non focal exam
# Severe diarrhea
C. difficile negative
Norovirus negative
Shiga toxin pending
Stool negative for Campylobacter and Shigella
And Giardia
Will change AB to Rocephin and Flagyl and see if diarrhea gets better
Add Probiotics
Non toxic appearing.
# Acute sigmoid radiculitis-ceftriaxone Flagyl
Changed to cefdinir and Flagyl for discharge
On LR diet
Colorectal eval appreciated.
# Hypomagnesemia-replaced
# Hypokalemia-replaced
# UTI- AB should cover
# Post CABG A-flutter with RVR exacerbated by volume loss from diarrhea
Converted to sinus rhythm
Continue amiodarone, metoprolol Eliquis
Cardiology consulted.
# Coronary disease status post CABG last month
Continue statin, Plavix, beta-patrick
Also on gabapentin for postoperative pain
# Thrombocytosis-Patient was made aware
Also anemic
Heme eval appreciated
ROCCO 2 mutation testing sent.
Will defer patient needs IV iron to hematology
# Diabetes-
Hold metformin and Jardiance (IV dye , Diarrhea and UTI)
Continue sliding scale coverage
Hemoglobin A1c 7.7.
May not be completely reliable with anemia
Sugars were much higher yesterday
Change diet to 1800 ADA
Add Premeal NovoLog while inpatent only
# Ischemic cardiomyopathy
# Hyperlipidemia/atherosclerosis-statin
# Chronic hyponatremia-normalized
# Underweight
# Lumbar degenerative disc disease
# Hepatic and renal cysts-pt aware
# Ex-smoker
# DVT prophylaxis-Eliquis
# Full code
Discussed with family at bedside
D/W Colorectal
Anticipated Discharge: Within 24 hours
Subjective/Interval History
-
Date of Service: January 05, 2024
Objective Data
-
Labs:
Laboratory Results
01/05/24
07:00
WBC 9.9
Hgb 9.1 L
Hct 27.8 L
Plt Count 637 H
Sodium 134 L
Potassium 4.3 D
Chloride 106
Carbon Dioxide 18 L
BUN 5 L
Creatinine 0.5 L
Glucose 121 H
Calcium 8.6
Vital Signs:
Vital Signs
Temp Pulse Resp BP Pulse Ox
98.1 F 68 18 143/80 98
01/05/24 11:00 01/05/24 11:00 01/05/24 11:00 01/05/24 11:00 01/05/24 11:00
I&O
01/04/24 01/05/24 01/06/24
06:59 06:59 06:59
Intake Total 1280 / 1280 1700 / 1700
Balance 1280 / 1280 1700 / 1700
[2024-01-05] MEDS: NOVOLOG FLEXPEN-LOW RESISTANCE 2 UNITS SC (12:20)
[2024-01-05] MEDS: ZOSYN IV (12:25)
[2024-01-05] MEDS: FLORASTOR 250 MG PO ×2 (12:27→20:21)
[2024-01-05] MEDS: FLAGYL 500 MG 100 IV ×2 (12:28→21:29)
[2024-01-05] MEDS: NOVOLOG FLEXPEN 10 UNITS SC (12:29)
[2024-01-05] MEDS: STERILE WATER FOR INJECTION 10 ML IV (13:35)
[2024-01-05] MEDS: ROCEPHIN 1000 MG IV (13:35)
[2024-01-05 15:05] VITALS: BP 147/71
[2024-01-05 16:27] LABS: Glucose - Point of Care 138 mg/dl (70-99)
[2024-01-05] MEDS: NOVOLOG FLEXPEN 6 UNITS SC (16:27)
[2024-01-05] MEDS: LIPITOR 80 MG PO (20:22)
[2024-01-05 21:17] VITALS: BP 157/77
[2024-01-05 21:23] LABS: Glucose - Point of Care 116 mg/dl (70-99)
[2024-01-05 23:09] VITALS: BP 147/89
[2024-01-06 06:00] VITALS: BMI 19.6
[2024-01-06] MEDS: FLAGYL 500 MG 100 IV ×2 (06:10→14:33)
[2024-01-06 07:01] LABS: Glucose - Point of Care 134 mg/dl (70-99)
[2024-01-06 07:05] VITALS: BP 149/75
[2024-01-06] MEDS: ELIQUIS 5 MG PO (08:00)
[2024-01-06] MEDS: NOVOLOG FLEXPEN 6 UNITS SC ×2 (08:00→12:10)
[2024-01-06] MEDS: FLORASTOR 250 MG PO (08:00)
[2024-01-06] MEDS: VITAMIN D3 (cholecalciferol) 50 MCG PO (08:00)
[2024-01-06] MEDS: PLAVIX 75 MG PO (08:00)
[2024-01-06] MEDS: PROTONIX 40 MG PO (08:00)
[2024-01-06] MEDS: NEURONTIN 100 MG PO (08:00)
[2024-01-06] MEDS: LOPRESSOR 25 MG PO (08:01)
[2024-01-06] MEDS: PACERONE 200 MG PO (08:01)
[2024-01-06] MEDS: NOVOLOG FLEXPEN-LOW RESISTANCE SC (08:02)
[2024-01-06 11:05] LABS: Glucose - Point of Care 151 mg/dl (70-99)
--- NOTE | 2024-01-06 11:55 | W.PN.HOSP.TC ---
Today's Communication/Plan
-
Imodium, if good response then can dc home later
Assessment / Plan
Assessment / Plan
Assessment:
Severe diarrhea
- ?Abx related?
- stool studies negative
- probiotics, prn Imodium
Acute sigmoid diverticulitis without associated perforation or abscess
- tolerating LRD
- dc on Cefdinir/Flagyl
Hypomagnesemia
- resolved
Hypokalemia
- resolved
Multi-organism UTI
- E. Coli, Klebsiella
- continue Cefdinir
Post CABG A-flutter with RVR exacerbated by volume loss from diarrhea
- Converted to sinus rhythm
- Continue amiodarone, metoprolol Eliquis
- OP Cards follow up
Coronary disease status post CABG last month
- Continue statin, Plavix, beta-patrick
- Also on gabapentin for postoperative pain
Thrombocytosis
- Patient was made aware
- Also anemic
- Heme eval appreciated
- ROCCO 2 mutation testing sent.
- 1 dose IV Iron now, f/u Heme onc outpatient
Diabetes
- resume MFM/Jardiance at dc
- Hold metformin and Jardiance (IV dye , Diarrhea and UTI)
- Continue sliding scale coverage
- Hemoglobin A1c 7.7.
- May not be completely reliable with anemia
- Sugars were much higher yesterday
- 1800 ADA
- Add Premeal NovoLog while inpatent only
Ischemic cardiomyopathy
Hyperlipidemia/atherosclerosis-statin
Chronic hyponatremia-normalized
Underweight
Lumbar degenerative disc disease
Hepatic and renal cysts-pt aware
Ex-smoker
DVT prophylaxis-Eliquis
Full code
Anticipated Discharge: Today
Subjective/Interval History
-
Date of Service: January 06, 2024
diarrhea ongoing
stool studies negative
she is requesting Imodium
Objective Data
-
Vital Signs:
Vital Signs
Temp Pulse Resp BP Pulse Ox
97.5 F 73 16 149/75 98
01/06/24 07:05 01/06/24 08:01 01/06/24 07:05 01/06/24 08:01 01/06/24 07:05
I&O
01/05/24 01/06/24 01/07/24
06:59 06:59 06:59
Intake Total 1700 / 1700 1060 / 1060
Balance 1700 / 1700 1060 / 1060
Physical Exam
-
General: No Apparent Distress
HEENT: Normocephalic and Atraumatic
Respiratory: Negative Wheezes
Cardiac: Regular Rhythm and S1/S2
GI: Soft
Hematologic / Lymphatic: No Lymphadenopathy
Psych: Calm
Data Reviewed
-
Total Time Spent with Patient (in minutes): 41
Labs: Labs Reviewed by me
[2024-01-06] MEDS: IMODIUM 2 MG PO (12:10)
[2024-01-06] MEDS: NOVOLOG FLEXPEN-LOW RESISTANCE 1 UNITS SC (12:11)
--- NOTE | 2024-01-06 12:11 | W.DS.TRANS ---
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
-
Discharge Instructions:
Sleep Apnea Risk Low
Discharge Diagnosis/Procedures UTI and diverticulitis, Aflutter resolved
Diet Low Residue
Activity As tolerated
Instructions:
Stand-Alone Forms:
Changes to Home Medications: No
Discharge Medications:
DC Medications w/original date entered in [facility]
clopidogrel 75 mg tablet 75 mg PO DAILY Blood clot prevention/tx #90 tabs 11/30/23
gabapentin 100 mg capsule 100 mg PO BID post operative pain #30 caps 11/30/23
metformin 500 mg tablet 500 mg PO BID@0800,1700 diabetes #60 tabs 11/30/23
pantoprazole 40 mg tablet,delayed release 40 mg PO DAILY Gi prophylaxis #90 tabs 11/30/23
acetaminophen 500 mg tablet (Tylenol Extra Strength) 1,000 mg PO Q8HPRN PRN mild to moderate pain 12/17/23
atorvastatin 80 mg tablet 80 mg PO DAILY@1999 High cholesterol 12/17/23
cyclobenzaprine 5 mg tablet 5 mg PO TID PRN muscle spasms 12/17/23
empagliflozin 10 mg tablet (Jardiance) 10 mg PO DAILY@1999 Diabetes 12/17/23
sennosides 8.6 mg tablet (Senokot) 8.6 mg PO DAILY PRN constipation 12/17/23
apixaban 5 mg tablet (Eliquis) 5 mg PO BID #60 tabs 12/18/23
metoprolol tartrate 25 mg tablet 25 mg PO BID #60 tabs 12/18/23
amiodarone 200 mg tablet (Pacerone) 200 mg PO DAILY 01/02/24
cefdinir 300 mg capsule 300 mg PO BID #14 caps 01/06/24
cholecalciferol (vitamin D3) 50 mcg (2,000 unit) tablet 50 mcg PO DAILY #100 tabs 01/06/24
loperamide 2 mg capsule 2 mg PO Q6HPRN PRN diarrhea #20 caps 01/06/24
metronidazole 500 mg tablet 500 mg PO TID #21 tabs 01/06/24
Home Medication Changes
Pending Results: No
Total time spent discharging patient (in min): 42
[2024-01-06] MEDS: FERRLECIT 110 MG IV (13:02)
[2024-01-06] MEDS: STERILE WATER FOR INJECTION 10 ML IV (14:33)
[2024-01-06] MEDS: ROCEPHIN 1000 MG IV (14:34)
--- NOTE | 2024-01-06 14:56 | CM ---
Patient seen bedside, reports no needs to CM at this time. Patient reports she has transportation home. IMM reviewed, signed, placed in chart. CM will continue to follow for all discharge planning needs.
Plan; home no needs.
[2024-01-06 15:05] VITALS: BP 146/75
[2024-01-09 16:48] LABS: JAK2 Qual Mutation by PCR Not Detected; JAK2-PCR Source Whole Blood
== END 2024-01-06 16:34 | disposition home or self-care (01) | DRG 690 ==
LOC: 2 NORTH 19:35
PROVIDERS: Emergency Medicine; Hospitalist; ADMITTING PHYSICIAN Hospitalist; ATTENDING PHYSICIAN Internal Medicine; CONSULT PHYSICIAN Internal Medicine Hematology & Oncology; CONSULT PHYSICIAN Surgery; EMERGENCY PHYSICIAN Emergency Medicine; FAMILY PHYSICIAN Family Medicine; OTHER PHYSICIAN Internal Medicine
DX: N39.0 Urinary tract infection, site not specified (principal); E87.1 Hypo-osmolality and hyponatremia; I48.92 Unspecified atrial flutter; Z68.1 Body mass index [BMI] 19.9 or less, adult; K57.92 Diverticulitis of intestine, part unspecified, without perforation or abscess without bleeding; Z79.01 Long term (current) use of anticoagulants; I25.5 Ischemic cardiomyopathy; E11.649 Type 2 diabetes mellitus with hypoglycemia without coma; D75.839 Thrombocytosis, unspecified; Z87.891 Personal history of nicotine dependence; E78.00 Pure hypercholesterolemia, unspecified; R63.6 Underweight; E55.9 Vitamin D deficiency, unspecified; E83.42 Hypomagnesemia; E87.6 Hypokalemia
CPT/HCPCS: 74177; 80048; 80053; 81003; 81015; 81270; 82306; 82607; 82728; 82962; 83036; 83540; 83550; 83735; 83930; 84300; 84443; 85025; 85027; 85652; 87045; 87046; 87077; 87086; 87186; 87324; 87328; 87329; 87427; 87449; 87798; 93005; 96374; 99284; J2916; Q9967

== ENCOUNTER 2024-02-08 17:27 | Inpatient (IN) | payer OTHER, SELFPAY ==
[2024-02-08] VITALS (13 sets, daily range): BP systolic 131–182; BP diastolic 73–113; BMI 19.9
--- NOTE | 2024-02-08 10:42 | ED.GENMED ---
History of Present Illness
General
Chief Complaint: Urinary Symptoms
Source: patient
Exam Limitations: none
Time Seen by Provider: 02/08/24 10:12
Nursing documentation reviewed up to this point in time: agreed with
History of Present Illness
History of Present Illness:
68-year-old female presents emergency department complaining of dysuria ongoing for the past several weeks. She was admitted for UTI and sepsis recently.
Past History
Past History
ED Past Medical History: Arrthythmia and HTN
ED Past Surgical History: None
Social History
Tobacco: Non-smoker
Alcohol: None
Living: with family
Employment: Employed
Family History
Family History: Hypertension
Review of Systems
Review of Systems
Allergies reviewed?: Yes
All Other Systems: Not applicable
Constitutional: Reports no symptoms
EENT: Reports no symptoms
Respiratory: Reports no symptoms
Cardiac: Reports no symptoms; Denies chest pain
ABD/GI: Reports no symptoms
: Reports dysuria and frequency
Musculoskeletal: Reports no symptoms
Skin: Reports no symptoms
Neurological: Reports no symptoms
Endocrine: Reports no symptoms
Hematologic/Lymphatic: Reports no symptoms
Psychiatric: Reports no symptoms
Phy Exam
Physical Exam
Physical Exam:
Physical Exam
General: no apparent distress, not acutely ill
Neck: supple. no meningeal signs. normal posterior pharynx
Heart: s1/s2 regular rate and rhythm, no murmur. equal radial
pulses.
HEENT: Pupils equal round reactive to light, EOMI
Lungs: no acute respiratory distress. clear bilaterally
Abdomen: normal bowel sounds. not tender. no CVAT
Neuro: alert and oriented. no focal neurological deficits cranial nerves II through XII intact
Skin: no rash
Psychiatric: well kept. interactive and cooperative
Extremities: no edema. no calf tenderness. negative homans. good distal pulses
Course
Orders/Labs/Results
Orders:
Orders
02/08/24 10:45
Complete Blood Count/With Diff Urgent
Lactic Acid Q4H
Comment: CANCEL 2nd LACTIC ACID IF 1st LACTIC ACID IS LESS THAN 2
02/08/24 11:17
Comprehensive Metabolic Panel Urgent
02/08/24 12:05
0.9% Sodium Chloride 500 ml [Nss] 500 ml IV BOLUS
02/08/24 13:22
Osmolality, Random Urine Urgent
Date Specimen was Collected: 02/08/24
Time Specimen was Collected: 13:20
Comment: ADD ON
Urinalysis Reflex To Culture Urgent
Date Specimen was Collected: 02/08/24
Time Specimen was Collected: 13:20
Urine Microscopic Reflex Cult Urgent
Urine Sodium Urgent
Date Specimen was Collected: 02/08/24
Time Specimen was Collected: 13:20
Comment: ADD ON
Urine Culture Urgent
CYDNEY Source: U
Specimen Description:
Obtained by: Random
Date Specimen was Collected: 02/08/24
Time Specimen was Collected: 13:20
02/08/24 13:54
Add On- LAB Urgent
Tests Added?: urine osmolarity, urine sodium, serum osmolarity
02/08/24 13:55
CefTRIAXone [Rocephin] 2,000 mg IV NOW STA
02/08/24 14:15
Sterile Water [Sterile Water For Injection] 20 ml .ROUTE .STK-MED
02/08/24 16:07
Admit/Transfer Patient As Directed
Co-Sign Provider:
Level of Care: Inpatient admission
Assign to:: Medical/Surgical
Physician / Group: Dwayne Brandt
Diagnosis: UTI, acute hyponatremia
Reason for Hospitalization: UTI, acute hyponatremia
Expected length of stay greater than two midnights?: Yes
ELOS- Estimated Length of Stay in days: 2
I certify the patient meets the requirements for IP care: Yes
02/08/24 16:09
Code Status As Directed
Resuscitation Status: Full Code
Abnormal Lab Results
02/08/24 02/08/24 02/08/24
10:45 11:17 13:22
WBC 11.2 H 10^3/uL
(4.8-10.8)
RBC 4.13 L 10^6/uL
(4.20-5.40)
Hgb 11.9 L g/dL
(12.0-16.0)
Hct 35.1 L %
(37.0-47.0)
RDW 14.8 H %
(11.5-14.5)
Plt Count 506 H 10^3/uL
(130-400)
Absolute Neuts (auto) 8.5 H 10^3/uL
(1.4-6.5)
Absolute Monos (auto) 0.9 H 10^3/uL
(0.1-0.6)
Neutrophils % 76.2 H %
(42.2-75.2)
Lymphocytes % 13.9 L %
(20.5-51.1)
Sodium 126 L mmol/L
(135-145)
Chloride 92 L mmol/L
(98-107)
Creatinine 0.5 L mg/dL
(0.6-1.0)
Glucose 121 H mg/dl
(70-99)
Urine Nitrite (Reflex) Positive A
(Negative)
Leukocyte Esterase Rfl 2+ A
(Negative)
Urine WBC (Reflex) 21-25 A /HPF
(0-5)
Urine Bacteria (Reflex) Moderate A
(Negative)
Urine Osmolality 274 L mOsm/kg
(300-900)
02/08/24 10:45
02/08/24 11:17
Vital Signs
Initial and Last Documented VS:
Initial Vital Signs
Temp Pulse Resp BP Pulse Ox
97.5 F 87 16 161/99 99
02/08/24 10:00 02/08/24 10:00 02/08/24 10:00 02/08/24 10:00 02/08/24 10:00
Last Documented Vital Signs
Temp Pulse Resp BP Pulse Ox
97.5 F 87 16 156/96 99
02/08/24 10:00 02/08/24 10:00 02/08/24 10:00 02/08/24 16:00 02/08/24 10:00
MDM/Problems Addressed
Differential Diagnosis Includes:
UTI, sepsis
MDM/Problems Addressed:
68-year-old female with hyponatremia, UTI. Admit to hospital
Chronic conditions affecting care: Arrhythmia
Acute Exacerbation and/or Progression of Chronic Illness: Arrhythmia
*Pulse Oximetry
Patient hypoxic: no
*EKG
Interpreted by ED Provider?: NA
*Telegraphic Instrument Supervisor Interpretation
Rate: Telegraphic Instrument Supervisor- N/A
*Critical Care Note
Total Time (30-74mins, 75-104mins- exclusive of procedures): Not Applicable
Data Reviewed
Review of Other/Old Records Reveals: Labs (Prior sodium 134 on 01/05/2024)
Source: records
Patient Management
Social determinants of health affecting care: Living situation
Discussion with other providers: Hospitalist
Escalation/DeEscalation of care consider admission/obs:
Admit indicated
ED Attending Note
-
Portions of this chart may have been created with voice recognition software.� Occasional wrong word or��sound alike� substitutions may have occurred due to the inherent limitations of voice recognition software.
Discharge Plan
Departure
Patient Disposition: Admit
Date of Disposition: 02/08/24
Time of Disposition: 13:57
Admit to: Telemetry
Presentation/result/management discussed w/ accepting MD/DO: Hospitalist
Patient with high blood pressure during this ER visit?: Yes
Condition: Good
Discharge Problem:
Acute UTI, Acute hyponatremia
Prescriptions:
No Action
metformin 500 mg Tablet
500 mg PO BID@0800,1700 Qty: 60 0RF
clopidogrel 75 mg Tablet
75 mg PO DAILY Qty: 90 3RF
pantoprazole 40 mg Tablet,Delayed Release (Dr/Ec)
40 mg PO DAILY Qty: 90 3RF
cyclobenzaprine 5 mg Tablet
5 mg PO TIDPRN PRN (Reason: muscle spasms)
atorvastatin 80 mg tablet
80 mg PO HS
acetaminophen [Tylenol Extra Strength] 500 mg tablet
1,000 mg PO Q8HPRN PRN (Reason: mild to moderate pain)
Eliquis 5 mg Tablet
5 mg PO BID Qty: 60 0RF
metoprolol tartrate 25 mg Tablet
25 mg PO BID Qty: 60 0RF
amiodarone [Pacerone] 200 mg tablet
200 mg PO DAILY
cholecalciferol (vitamin D3) 50 mcg (2,000 unit) Tablet
50 mcg PO DAILY Qty: 100 0RF
lisinopril 10 mg Tablet
10 mg PO DAILY
gabapentin 100 mg capsule
100 mg PO HS
Referrals:
Amish Park DO [Family Provider] -
Interventions
Interventions:
*Risk Screen - Suicide Last Done: 02/08/24 10:31
*General Assessment Last Done: 02/08/24 10:00
*Neglect/Abuse Screening Last Done: 02/08/24 10:31
ED- Fall Risk Assessment Last Done: 02/08/24 10:31
*ED COVID-19 Vaccine History Last Done: 02/08/24 10:03
ED-Female Genitourinary Assessment Last Done: 02/08/24 10:31
Discharge Date and Time
Print Language: HONDURAN
[2024-02-08 10:57] LABS: % Basophils 0.8 % (0-2); % Eosinophils 0.5 % (0-6); % Immature Granulocytes 0.3 % (0-0.5); % Lymphocytes 13.9 % (20.5-51.1); % Monocytes 8.3 % (1.7-9.3); % Neutrophils 76.2 % (42.2-75.2); Absolute Basophils 0.1 10^3/uL (0-0.2); Absolute Eosinophils 0.1 10^3/uL (0-0.7); Absolute Lymphocytes 1.6 10^3/uL (1.2-3.4); Absolute Monocytes 0.9 10^3/uL (0.1-0.6); Absolute Neutrophils 8.5 10^3/uL (1.4-6.5); Hematocrit 35.1 % (37.0-47.0); Hemoglobin 11.9 g/dL (12.0-16.0); Mean Corp Hgb Conc. 33.9 g/dL (33.0-37.0); Mean Corpuscular Hgb 28.8 pg (27.0-31.0); Mean Platelet Volume 8.7 fL (7.4-10.4); Nucleated Red Blood Cells % 0 %; Platelet Count 506 10^3/uL (130-400); Red Blood Cell Count 4.13 10^6/uL (4.20-5.40); Red Cell Dist. Width 14.8 % (11.5-14.5); White Blood Cell Count 11.2 10^3/uL (4.8-10.8)
[2024-02-08 11:13] LABS: Lactic Acid 1.9 mmol/L (0.7-2.0)
[2024-02-08 11:44] LABS: ALT (SGPT) 13 U/L (0-35); AST (SGOT) 16 U/L (14-36); Albumin 4.2 g/dl (3.5-5.0); Alkaline Phosphatase 55 U/L (38-126); Blood Urea Nitrogen 9 mg/dl (7-17); Calcium 9.4 mg/dl (8.4-10.2); Carbon Dioxide 24 mmol/L (22-30); Chloride 92 mmol/L (98-107); Estimated Creatinine Clearance 71 ml/min; Glucose 121 mg/dl (70-99); Potassium 4.5 mmol/L (3.5-5.1); Sodium 126 mmol/L (135-145); Total Bilirubin 0.4 mg/dl (0.2-1.3); Total Protein 6.6 g/dl (6.3-8.2); eGFR > 60.00
[2024-02-08] MEDS: NSS 500 IV (12:06)
[2024-02-08 13:32] LABS: Urine Albumin Negative (Neg - Trace); Urine Bilirubin Negative (Negative); Urine Character Clear (Clear); Urine Color Yellow; Urine Glucose Negative (Negative); Urine Ketone Negative (Negative); Urine Leukocyte 2+ (Negative); Urine Nitrite Positive (Negative); Urine Occult Blood Negative (Negative); Urine Specific Gravity 1.005 (<1.030); Urine Urobilinogen Negative (Neg - 1+)
[2024-02-08 14:06] LABS: Urine Bacteria Moderate (Negative); Urine Red Blood Cell 0-2 /HPF (0-2); Urine White Cell 21-25 /HPF (0-5)
[2024-02-08] MEDS: ROCEPHIN 2000 MG IV (14:18)
[2024-02-08 15:17] LABS: Osmolality Urine 274 mOsm/kg (300-900)
[2024-02-08 15:57] LABS: Urine Sodium 74 mmol/L (30-90)
--- NOTE | 2024-02-08 16:11 | HPS.HSE ---
Family Physician
-
Family Physician: Amish Park DO
Chief Complaint
-
Lower abdominal pressure/discomfort
History of Present Illness
Patient is 68-year-old female with past medical history of atrial flutter on Eliquis, essential hypertension, GERD, [id number] diabetes mellitus, history of UTI came to ER for having new onset of lower abdominal discomfort and urgency.
Patient stated of having UTI for last 2 months? and stated of having a clear UA last week in primary care physician office. Yesterday patient started to having lower abdominal discomfort some urgency and minimal dysuria. Patient stated of having
some cloudy urine, no blood in urine. Denies of having history of renal stone/ureteral stents or any other procedure.
Patient also complaining having new diarrhea from yesterday, had 4-5 bowel movements overnight. Some nausea no vomiting poor appetite.
Denies any cardiopulmonary complaints.
Medical History
Past Medical History
Past Medical History: Reports Other
Additional Past Medical History:
atrial flutter on Eliquis, essential hypertension, GERD, [id number] diabetes mellitus, history of UTI
Past Surgical History: Reports Other
Social History
Tobacco: Non-smoker
Alcohol: None
Drug: None
Family History
Family History: Not pertinent
Allergies / Home Medications
Allergies reflects when Allergies were last updated in [facility].
Home Medications with original date entered in [facility]
Allergy/Medication List:
Allergies
Allergy/AdvReac Type Severity Reaction Status Date / Time
Sulfa (Sulfonamide Allergy Unknown Verified 02/08/24 10:04
Antibiotics)
Home Medications
clopidogrel 75 mg tablet 75 mg PO DAILY Blood clot prevention/tx #90 tabs 11/30/23
metformin 500 mg tablet 500 mg PO BID@0800,1700 diabetes #60 tabs 11/30/23
pantoprazole 40 mg tablet,delayed release 40 mg PO DAILY Gi prophylaxis #90 tabs 11/30/23
acetaminophen 500 mg tablet (Tylenol Extra Strength) 1,000 mg PO Q8HPRN PRN mild to moderate pain 12/17/23
atorvastatin 80 mg tablet 80 mg PO HS High cholesterol 12/17/23
cyclobenzaprine 5 mg tablet 5 mg PO TIDPRN PRN muscle spasms 12/17/23
apixaban 5 mg tablet (Eliquis) 5 mg PO BID #60 tabs 12/18/23
metoprolol tartrate 25 mg tablet 25 mg PO BID #60 tabs 12/18/23
amiodarone 200 mg tablet (Pacerone) 200 mg PO DAILY 01/02/24
cholecalciferol (vitamin D3) 50 mcg (2,000 unit) tablet 50 mcg PO DAILY #100 tabs 01/06/24
gabapentin 100 mg capsule 100 mg PO HS 02/08/24
lisinopril 10 mg tablet 10 mg PO DAILY 02/08/24
Review of Systems
-
A 12 point ROS was completed and negative except as noted: Yes
Physical Exam
Vital Signs
Vital Signs
Temp Pulse Resp BP Pulse O
6 99
02/08/24 10:00 02/08/24 10:00 02/08/24 10:00 02/08/24 16:00 02/08/24 10:00
Physical Exam
General: No Apparent Distress
HEENT: NormoCephalic, Moist mucous membranes and Atraumatic
Respiratory: Clear
Cardiac: S1/S2, Regular Rhythm and Bradycardia; No Murmur
GI: Soft, Non Distended and Normal Bowel Sounds; No Organomegaly
Rectal: Deferred by Provider
Musculoskeletal: No Clubbing, No Cyanosis and No Edema
Skin: No Rash
Neuro: Awake, Alert, Oriented and Nonfocal/grossly intact
Laboratory Results
-
02/08/24 10:45
02/08/24 11:17
Laboratory Results
Lactic Acid Cancelled 02/08/24 14:30
Total Bilirubin 0.4 mg/dl (0.2-1.3) 02/08/24 11:17
AST 16 U/L (14-36) 02/08/24 11:17
ALT 13 U/L (0-35) 02/08/24 11:17
Alkaline Phosphatase 55 U/L (38-126) 02/08/24 11:17
Impression/Plan
-
1. Urinary tract infection
-Patient have history of recurrent urinary tract infection, previous urine culture showing Enterococcus faecalis/E. coli/capsula pneumonia
-UA showing minimal pyuria 20-25, nitrite positive bacteriuria
-Urine culture collected in ER
-Patient having some discomfort/dysuria/cloudy urine/urgency and will treat as repeat UTI episode
-Got Rocephin in ER, continue
2. Hyponatremia
-Acute hyponatremia with urine sodium down to 126, baseline close to 134 on previous admission
-Check urine sodium and urine osmolality
-Patient complaining some diarrhea although urine sodium 74 and osmolality 274
-Patient got NS 500 mL in ER, follow-up level tomorrow and will decide based on lab trends
3. Diarrhea
-Patient remains at risk of C. difficile with antibiotic exposure with recurrent UTI history
-Monitor for any true diarrhea overnight, will need to check for C. difficile if truly have significant diarrhea.
-not on laxatives
4. Parox afib
-Rate controlled
-Maintain on metoprolol with holding parameter and Eliquis
5. CAD / CABG
-Maintain on Plavix/statin
-No cardiac complaint
6. GERD
- continue on pantoprazole
DVT PPX - eliquis
Full code
Total time spent : 77 mins
I personally saw and examined the patient.
I have reviewed all diagnostic interpretations and treatment plans as written.
Time includes patient management by me, time spent at the patients bedside, time to review lab and imaging results, discussing patient care, documentation in the medical record, and time spent with the family or caregiver and discussing care plan
with RN/Consultants.
--- NOTE | 2024-02-08 18:18 | PTCARENOTE ---
02/07- Patient transferred and oriented to unit without issue. Med/Surg; AAOX3; Patient denies any current needs.
[2024-02-08] MEDS: GLUCOPHAGE 500 MG PO (19:07)
[2024-02-08] MEDS: ELIQUIS 5 MG PO (19:38)
[2024-02-08] MEDS: LOPRESSOR 25 MG PO (19:38)
[2024-02-08] MEDS: TYLENOL 650 MG PO (21:32)
[2024-02-08] MEDS: NEURONTIN 100 MG PO (21:32)
[2024-02-08] MEDS: LIPITOR 80 MG PO (21:32)
[2024-02-08 21:36] LABS: Glucose - Point of Care 154 mg/dl (70-99)
[2024-02-09 05:41] VITALS: BMI 18.8
--- NOTE | 2024-02-09 05:51 | PTCARENOTE ---
pt had no bms from for nightshift
[2024-02-09 06:32] LABS: Hematocrit 30.7 % (37.0-47.0); Hemoglobin 10.5 g/dL (12.0-16.0); Mean Corp Hgb Conc. 34.2 g/dL (33.0-37.0); Mean Corpuscular Hgb 28.2 pg (27.0-31.0); Mean Corpuscular Volume 82.5 fL (81.0-99.0); Mean Platelet Volume 8.7 fL (7.4-10.4); Platelet Count 487 10^3/uL (130-400); Red Blood Cell Count 3.72 10^6/uL (4.20-5.40); Red Cell Dist. Width 15.1 % (11.5-14.5); White Blood Cell Count 8.8 10^3/uL (4.8-10.8)
[2024-02-09 07:00] VITALS: BP 132/82
[2024-02-09 07:04] LABS: Blood Urea Nitrogen 9 mg/dl (7-17); Carbon Dioxide 26 mmol/L (22-30); Chloride 94 mmol/L (98-107); Estimated Creatinine Clearance 67 ml/min; Glucose 100 mg/dl (70-99); Potassium 4.4 mmol/L (3.5-5.1); Sodium 129 mmol/L (135-145); eGFR > 60.00
[2024-02-09] MEDS: ZESTRIL 10 MG PO (08:22)
[2024-02-09] MEDS: VITAMIN D3 (cholecalciferol) 50 MCG PO (08:23)
[2024-02-09] MEDS: ELIQUIS 5 MG PO (08:23)
[2024-02-09] MEDS: PLAVIX 75 MG PO (08:23)
[2024-02-09] MEDS: GLUCOPHAGE 500 MG PO (08:24)
[2024-02-09] MEDS: PROTONIX 40 MG PO (08:24)
[2024-02-09] MEDS: LOPRESSOR 25 MG PO (08:24)
--- NOTE | 2024-02-09 13:01 | W.PN.HOSP.TC ---
Today's Communication/Plan
-
d/c home
Assessment / Plan
Assessment / Plan
1. Urinary tract infection
-Patient have history of recurrent urinary tract infection, previous urine culture showing Enterococcus faecalis/E. coli/capsula pneumonia
-UA showing minimal pyuria 20-25, nitrite positive bacteriuria
-Urine culture collected in ER
-Patient having some discomfort/dysuria/cloudy urine/urgency and will treat as repeat UTI episode
-Patient feeling improved today no clear sign of ongoing complicated UTI. Will provide 3 days of oral Omnicef therapy to finish course of UTI
2. Hyponatremia
-Acute hyponatremia with urine sodium down to 126, baseline close to 134 on previous admission
-Patient complaining some diarrhea although urine sodium 74 and osmolality 274
-Patient got NS 500 mL in ER
-Apparently diarrhea is improved and sodium improving to 129. A follow-up BMP prescription provided follow-up with PCP in office for further workup if continues to have hyponatremia.
-Medication reviewed and no clear medication explaining hyponatremia.
3. Diarrhea -resolved
-Patient remains at risk of C. difficile with antibiotic exposure with recurrent UTI history
-Monitor for any true diarrhea overnight, will need to check for C. difficile if truly have significant diarrhea.
-not on laxatives
4. Parox afib
-Rate controlled
-Maintain on metoprolol with holding parameter and Eliquis
5. CAD / CABG
-Maintain on Plavix/statin
-No cardiac complaint
6. GERD
- continue on pantoprazole
DVT PPX - eliquis
Full code
More than 30 minutes spent in discharge including
Final examination of the patient
Summarizing hospital stay
Instructions for continuing care to all relevant caregivers
Preparation of discharge records, prescriptions, and referral forms
Total time spent (in minutes): 38 mins
Anticipated Discharge: Today
Subjective/Interval History
-
Date of Service: February 09, 2024
Remains afebrile overnight
Feeling well
No other issues
Objective Data
-
Labs:
Laboratory Results
02/09/24
06:19
WBC 8.8
Hgb 10.5 L
Hct 30.7 L
Plt Count 487 H
Sodium 129 L
Potassium 4.4
Chloride 94 L
Carbon Dioxide 26
BUN 9
Creatinine 0.5 L
Glucose 100 H
Calcium 9.0
Vital Signs:
Vital Signs
Temp Pulse Resp BP Pulse Ox
97.4 F 81 16 132/82 98
02/09/24 07:00 02/09/24 08:24 02/09/24 07:00 02/09/24 08:24 02/09/24 07:00
I&O
02/08/24 02/09/24 02/10/24
06:59 06:59 06:59
Intake Total 120 / 120
Balance 120 / 120
Review of Systems
-
Respiratory: Reports No Symptoms
Cardiac: Reports No Symptoms
Abdomen/GI: Reports No Symptoms
Physical Exam
-
General: No Apparent Distress
HEENT: Normocephalic and Atraumatic
Respiratory: Negative Wheezes
Cardiac: Regular Rhythm and S1/S2
GI: Soft
Hematologic / Lymphatic: No Lymphadenopathy
Psych: Calm
--- NOTE | 2024-02-09 13:08 | CM ---
Patient seen bedside.
IA completed.
patient lives with grandson in a 2 story home with 1st floor bed and bath.
patient independent prior to admission without assistive devices.
IMM completed.
No Home care needs.
Patient drives herself to the hospital.
PCP: Dr Park
Pharmacy: [facility]
Plan: home no needs.
--- NOTE | 2024-02-10 15:17 | W.DCSUMMARY ---
Discharge Summary
Discharge Data
Date of Admission: 02/08/24
Date of Discharge: 02/09/24
-
Pending Results: No
Hospital Course
Discharging Physician : Dr Dwayne Brandt
Disposition : To home
Primary care physician : Dr Amish Park
Principal Discharge diagnosis :
Eschericha coli/klebsiella urine tract infection
Acute hyponatremia
Acute diarrhea
Chronic Discharge diagnosis :
Paroxysmal atrial fibrillation
Coronary disease with history of bypass
Gastroesophageal reflux disease
Hospital Course :
Patient is a 68-year-old female with above-mentioned past medical history came to ER with having new onset of abdominal discomfort and some burning pain. Patient have history of urinary tract infection in the past and has been treated recently for
1 episode as well. Patient was concerned of having a repeat episode of UTI. UA was showing moderate pyuria and bacteriuria. Urine culture growing E. coli and Klebsiella oxytoca. Discharge patient was given short course of Omnicef.
Patient have history of recurrent UTI and was educated about unnecessary antibiotic exposure and potential of drug-resistant/C. difficile colitis. Patient should benefit with follow-up with urology for urological study if continues to happen by
UTI. Patient had CT abdomen pelvis last month and was not showing any stones and therefor no repeat imaging was done this admission.
Patient also had mild hyponatremia and reported few episodes of diarrhea before ER presentation. Initially was suspected to be pathological diarrhea although improved without any treatment. Patient was given 500 mL fluid bolus in ER with which
patient sodium improved to 129. Patient provided follow-up BMP prescription postdischarge.
Important imaging findings :
None
Procedure findings :
None
Discharge Plan
-
Patient Disposition: Home (Routine Discharge)
Discharge Diagnosis/Procedures: Hyponatremia, UTI
Condition: Fair
Diet: Regular
Activity: As tolerated
Driving Restrictions: No driving
Bathing Restrictions: OK to Shower
Blood Work: BMP in 1 week
Referrals:
Amish Park, [Family Provider] - in one week
Prescriptions:
New
cefdinir 300 mg capsule
300 mg PO BID 6 Days Qty: 12 0RF
Continued
metformin 500 mg Tablet
500 mg PO BID@0800,1700 Qty: 60 0RF
clopidogrel 75 mg Tablet
75 mg PO DAILY Qty: 90 3RF
pantoprazole 40 mg Tablet,Delayed Release (Dr/Ec)
40 mg PO DAILY Qty: 90 3RF
cyclobenzaprine 5 mg Tablet
5 mg PO TIDPRN PRN (Reason: muscle spasms)
atorvastatin 80 mg tablet
80 mg PO HS
acetaminophen [Tylenol Extra Strength] 500 mg tablet
1,000 mg PO Q8HPRN PRN (Reason: mild to moderate pain)
Eliquis 5 mg Tablet
5 mg PO BID Qty: 60 0RF
metoprolol tartrate 25 mg Tablet
25 mg PO BID Qty: 60 0RF
amiodarone [Pacerone] 200 mg tablet
200 mg PO DAILY
cholecalciferol (vitamin D3) 50 mcg (2,000 unit) Tablet
50 mcg PO DAILY Qty: 100 0RF
lisinopril 10 mg Tablet
10 mg PO DAILY
gabapentin 100 mg capsule
100 mg PO HS
Discharge Orders:
Discharge Patient (As Directed); Ordered 02/09/24
Ordered By: Dwayne Brandt
Discharge Date and Time
Discharge Date/Time: 02/09/24 13:57
Print Language: MOSOT[place]
== END 2024-02-09 13:57 | disposition home or self-care (01) | DRG 690 ==
LOC: 4 WEST ACU 17:27
PROVIDERS: ADMITTING PHYSICIAN Hospitalist; EMERGENCY PHYSICIAN Emergency Medicine; FAMILY PHYSICIAN Family Medicine
DX: N39.0 Urinary tract infection, site not specified (principal); E87.1 Hypo-osmolality and hyponatremia; I48.0 Paroxysmal atrial fibrillation; Z79.01 Long term (current) use of anticoagulants; K21.9 Gastro-esophageal reflux disease without esophagitis
CPT/HCPCS: 80048; 80053; 81003; 81015; 82962; 83605; 83935; 84300; 85025; 85027; 87077; 87086; 87186; 96374; 99284

== ENCOUNTER → 2024-02-15 13:02 | Outpatient (REF) | payer OTHER, SELFPAY ==
[2024-02-15 15:14] LABS: Blood Urea Nitrogen 8 mg/dl (7-17); Calcium 10.2 mg/dl (8.4-10.2); Carbon Dioxide 24 mmol/L (22-30); Chloride 93 mmol/L (98-107); Glucose 108 mg/dl (70-99); Sodium 130 mmol/L (135-145); eGFR > 60.00
== END ==
LOC: REG 13:02
PROVIDERS: ATTENDING PHYSICIAN Family Medicine
DX: E87.1 Hypo-osmolality and hyponatremia (principal)
CPT/HCPCS: 36415; 80048

== ENCOUNTER 2024-02-26 10:54 | Outpatient (RCR) | payer OTHER, SELFPAY ==
[2024-01-30 11:44] LABS: Glucose - Point of Care 182 mg/dl (70-99)
[2024-01-30 12:17] LABS: Glucose - Point of Care 149 mg/dl (70-99)
[2024-02-05 10:30] LABS: Glucose - Point of Care 182 mg/dl (70-99)
[2024-02-05 11:19] LABS: Glucose - Point of Care 141 mg/dl (70-99)
[2024-02-07 10:31] LABS: Glucose - Point of Care 192 mg/dl (70-99)
[2024-02-07 11:27] LABS: Glucose - Point of Care 157 mg/dl (70-99)
[2024-02-12 10:44] LABS: Glucose - Point of Care 285 mg/dl (70-99)
[2024-02-12 11:38] LABS: Glucose - Point of Care 156 mg/dl (70-99)
[2024-02-19 10:37] LABS: Glucose - Point of Care 223 mg/dl (70-99)
[2024-02-19 11:28] LABS: Glucose - Point of Care 175 mg/dl (70-99)
[2024-02-26 10:52] LABS: Glucose - Point of Care 135 mg/dl (70-99)
[2024-02-26 11:40] LABS: Glucose - Point of Care 125 mg/dl (70-99)
== END 2024-02-26 23:59 | disposition home or self-care (01) ==
LOC: CRHB 10:54
PROVIDERS: ATTENDING PHYSICIAN Internal Medicine; FAMILY PHYSICIAN Family Medicine
DX: I25.10 Atherosclerotic heart disease of native coronary artery without angina pectoris (principal); Z95.1 Presence of aortocoronary bypass graft
CPT/HCPCS: 82962; G0422; G0423

== ENCOUNTER 2024-09-05 17:20 | Emergency (ER) | payer OTHER, MEDICARE, SELFPAY ==
[2024-09-05 17:28] VITALS: BP 179/120
[2024-09-05 17:48] VITALS: BP 163/95
[2024-09-05 17:53] VITALS: BMI 20.4
[2024-09-05 17:58] LABS: % Basophils 0.9 % (0-2); % Eosinophils 1.6 % (0-6); % Immature Granulocytes 0.3 % (0-0.5); % Lymphocytes 27.8 % (20.5-51.1); % Monocytes 7.8 % (1.7-9.3); % Neutrophils 61.6 % (42.2-75.2); Absolute Basophils 0.1 10^3/uL (0-0.2); Absolute Eosinophils 0.1 10^3/uL (0-0.7); Absolute Lymphocytes 2.1 10^3/uL (1.2-3.4); Absolute Monocytes 0.6 10^3/uL (0.1-0.6); Absolute Neutrophils 4.7 10^3/uL (1.4-6.5); Hematocrit 35.2 % (37.0-47.0); Hemoglobin 11.4 g/dL (12.0-16.0); Mean Corp Hgb Conc. 32.4 g/dL (33.0-37.0); Mean Corpuscular Hgb 29.5 pg (27.0-31.0); Mean Corpuscular Volume 91.2 fL (81.0-99.0); Mean Platelet Volume 8.7 fL (7.4-10.4); Nucleated Red Blood Cells % 0 %; Platelet Count 621 10^3/uL (130-400); Red Blood Cell Count 3.86 10^6/uL (4.20-5.40); Red Cell Dist. Width 13.2 % (11.5-14.5); White Blood Cell Count 7.6 10^3/uL (4.8-10.8)
[2024-09-05 18:00] VITALS: BP 175/99
[2024-09-05 18:08] LABS: ALT (SGPT) < 10 U/L (0-35); AST (SGOT) 15 U/L (14-36); Albumin 4.9 g/dl (3.5-5.0); Alkaline Phosphatase 61 U/L (38-126); Blood Urea Nitrogen 13 mg/dl (7-17); Calcium 10.6 mg/dl (8.4-10.2); Carbon Dioxide 25 mmol/L (22-30); Chloride 98 mmol/L (98-107); Estimated Creatinine Clearance 74 ml/min; Glucose 131 mg/dl (70-99); Lipase 77 U/L (23-300); Potassium 5.7 mmol/L (3.5-5.1); Sodium 133 mmol/L (135-145); Total Bilirubin 0.3 mg/dl (0.2-1.3); eGFR > 60.00
[2024-09-05 18:19] LABS: Troponin I < 0.012 ng/ml
[2024-09-05] MEDS: NITROSTAT (SUBLINGUAL) 0.4 MG SL (19:56)
[2024-09-05] MEDS: LOPRESSOR 25 MG PO (19:56)
[2024-09-05] MEDS: GLUCOPHAGE 500 MG PO (19:56)
--- NOTE | 2024-09-05 20:01 | ED.GENMED ---
History of Present Illness
General
Chief Complaint: Chest Pain
Time Seen by Provider: 09/05/24 18:28
History of Present Illness
History of Present Illness:
69-year-old female with history of CAD status post CABG x 4 (October 2023), atrial fibrillation on Eliquis, hypertension, and hyperlipidemia presents to the emergency department for evaluation of epigastric discomfort that began at 1530 today. States
she was seated on a chair playing with her pets when this began. Symptoms are currently rated 7 out of 10, nonradiating. No pleuritic chest pain or shortness of breath. She does describe the symptoms as 'the exact same' as her prior angina that
was ultimately resolved after CABG. No fevers or night sweats. Compliant with all of her home medications.
Past History
Past History
ED Past Medical History: Arrthythmia and HTN
ED Past Surgical History: None
Social History
Tobacco: Non-smoker
Alcohol: None
Living: with family
Employment: Employed
Family History
Family History: Hypertension
Review of Systems
Review of Systems
Allergies reviewed?: Yes
All Other Systems: ROS reviewed and negative except as documented in HPI and ROS
Phy Exam
Physical Exam
Physical Exam:
GEN: Well appearing, NAD, WDWN
HEENT: Oral mucosa moist, no scleral icterus
Cardiac: Regular rate and rhythm, no murmurs, occasional extrasystoles
Lung: No respiratory distress, no tachypnea, lungs clear to auscultation bilaterally
Abdomen: Soft, mild left upper quadrant tenderness, no rigidity or peritoneal signs
MSK: No gross deformity or injuries
Skin: Good color, no pallor or jaundice, no rashes
Neuro: AO x3, moves all extremities freely
Psych: Calm, cooperative
Scores
Heart Score for Chest Pain Patients
STEMI patient?: No
History: Moderately Suspicious
ECG: Normal
Age: >/= 65 years
Risk Factors: >/= 3 Risk Factors or History of CAD
Troponin: </= Normal Limit
Heart Score for Chest Pain Patients: 5
Heart Score Risk: 20.3% MACE over next 6 weeks
Course
Orders/Labs/Results
Orders:
Orders
09/05/24 17:22
Electrocardiogram (*1) Urgent
Reason for Study: Chest Pain
09/05/24 17:23
EKG- Treatment ONCE
09/05/24 17:35
CMP [Comprehensive Metabolic Panel] Urgent
Complete Blood Count/With Diff Urgent
Lipase Urgent
PTT Urgent
Troponin I Urgent
09/05/24 19:16
EKG- Treatment ONCE
09/05/24 19:25
Urinalysis Reflex To Culture Urgent
Date Specimen was Collected: 09/05/24
Time Specimen was Collected: 19:26
Urine Microscopic Reflex Cult Urgent
Urine Culture Urgent
CYDNEY Source: U
Specimen Description:
Date Specimen was Collected: 09/05/24
Time Specimen was Collected: 19:26
09/05/24 19:48
METFORMIN HCl [Glucophage] 500 mg PO NOW STA
Metoprolol [Lopressor] 25 mg PO NOW STA
Nitroglycerin Sublingual [Nitrostat (Sublingual)] 0.4 mg SL NOW STA
09/05/24 20:25
Troponin I Urgent
09/05/24 20:30
Electrocardiogram (*1) Urgent
Reason for Study: Chest Pain
09/05/24 21:23
Famotidine [Pepcid] 20 mg PO NOW STA
09/05/24 21:30
Apixaban [Eliquis] 5 mg PO BID
Abnormal Lab Results
09/05/24 09/05/24
17:35 19:25
RBC 3.86 L 10^6/uL
(4.20-5.40)
Hgb 11.4 L g/dL
(12.0-16.0)
Hct 35.2 L %
(37.0-47.0)
MCHC 32.4 L g/dL
(33.0-37.0)
Plt Count 621 H 10^3/uL
(130-400)
Sodium 133 L mmol/L
(135-145)
Potassium 5.7 H mmol/L
(3.5-5.1)
Glucose 131 H mg/dl
(70-99)
Calcium 10.6 H mg/dl
(8.4-10.2)
Ur Occult Blood Reflex 3+ A
(Negative)
Leukocyte Esterase Rfl 3+ A
(Negative)
Urine RBC 11-15 A /HPF
(0-2)
Urine WBC (Reflex) >100 A /HPF
(0-5)
Urine Bacteria (Reflex) Few A
(Negative)
Urine Albumin (Reflex) 1+ A
(Neg - Trace)
09/05/24 17:35
09/05/24 17:35
Vital Signs
Initial and Last Documented VS:
Initial Vital Signs
Temp Pulse Resp BP Pulse Ox
98.2 F 76 20 179/120 99
09/05/24 17:28 09/05/24 17:28 09/05/24 17:28 09/05/24 17:28 09/05/24 17:28
Last Documented Vital Signs
Temp Pulse Resp BP Pulse Ox
98.2 F 86 21 151/78 98
09/05/24 17:28 09/05/24 21:39 09/05/24 21:39 09/05/24 21:00 09/05/24 21:00
MDM/Problems Addressed
MDM/Problems Addressed:
Patient had 2 negative troponins and reassuring EKG. Nitroglycerin was administered however provided no benefit to patient's symptoms. I discussed the case with cardiology on-call who feel that this patient is reasonable for close outpatient
follow-up for stress testing. Do not see any other abdominal etiology to patient's symptoms at this time. Will refer to cardiology through the chest pain hotline
*Critical Care Note
Total Time (30-74mins, 75-104mins- exclusive of procedures): Not Applicable
ED Attending Note
-
Portions of this chart may have been created with voice recognition software.� Occasional wrong word or��sound alike� substitutions may have occurred due to the inherent limitations of voice recognition software.
Discharge Plan
Departure
Patient Disposition: Home (Routine Discharge)
Date of Disposition: 09/05/24
Time of Disposition: 21:19
Patient with high blood pressure during this ER visit?: Yes
Discharge Problem:
Abdominal pain, epigastric
Instructions: Chest Pain CBC Follow Up
Prescriptions:
No Action
metformin 500 mg Tablet
500 mg PO BID@0800,1700 Qty: 60 0RF
clopidogrel 75 mg Tablet
75 mg PO DAILY Qty: 90 3RF
pantoprazole 40 mg Tablet,Delayed Release (Dr/Ec)
40 mg PO DAILY Qty: 90 3RF
cyclobenzaprine 5 mg Tablet
5 mg PO TIDPRN PRN (Reason: muscle spasms)
atorvastatin 80 mg tablet
80 mg PO HS
acetaminophen [Tylenol Extra Strength] 500 mg tablet
1,000 mg PO Q8HPRN PRN (Reason: mild to moderate pain)
Eliquis 5 mg Tablet
5 mg PO BID Qty: 60 0RF
metoprolol tartrate 25 mg Tablet
25 mg PO BID Qty: 60 0RF
amiodarone [Pacerone] 200 mg tablet
200 mg PO DAILY
cholecalciferol (vitamin D3) 50 mcg (2,000 unit) Tablet
50 mcg PO DAILY Qty: 100 0RF
lisinopril 10 mg Tablet
10 mg PO DAILY
gabapentin 100 mg capsule
100 mg PO HS
cefdinir 300 mg capsule
300 mg PO BID 6 Days Qty: 12 0RF
Referrals:
Amish Park DO [Family Provider] -
Interventions
Interventions:
*Risk Screen - Suicide Last Done: 09/05/24 17:49
*General Assessment Last Done: 09/05/24 17:28
*Neglect/Abuse Screening Last Done: 09/05/24 17:49
ED- Fall Risk Assessment Last Done: 09/05/24 19:30
*ED COVID-19 Vaccine History Last Done: 09/05/24 17:49
*Nursing Disposition Last Done: 09/05/24 21:55
ED- Cardiac Assessment Last Done: 09/05/24 17:49
Discharge Date and Time
Discharge Date/Time: 09/05/24 21:55
Print Language: SCOTTISH
[2024-09-05 20:03] VITALS: BP 147/86
[2024-09-05 20:30] LABS: Urine Albumin 1+ (Neg - Trace); Urine Bilirubin Negative (Negative); Urine Character Slightly Cloudy (Clear); Urine Glucose Negative (Negative); Urine Ketone Negative (Negative); Urine Leukocyte 3+ (Negative); Urine Nitrite Negative (Negative); Urine Occult Blood 3+ (Negative); Urine Urobilinogen Negative (Neg - 1+)
[2024-09-05 20:36] LABS: Urine Color Straw
[2024-09-05 20:57] LABS: Urine Bacteria Few (Negative); Urine White Cell >100 /HPF (0-5)
[2024-09-05 21:00] VITALS: BP 151/78
[2024-09-05 21:09] LABS: Troponin I < 0.012 ng/ml
[2024-09-05] MEDS: PEPCID 20 MG PO (21:43)
[2024-09-05] MEDS: ELIQUIS 5 MG PO (21:43)
== END 2024-09-05 21:55 | disposition home or self-care (01) ==
LOC: EMR 17:20
PROVIDERS: Emergency Medicine; Physician Assistant; EMERGENCY PHYSICIAN Emergency Medicine; FAMILY PHYSICIAN Family Medicine
DX: R10.13 Epigastric pain (principal); E78.5 Hyperlipidemia, unspecified; I10 Essential (primary) hypertension; I25.10 Atherosclerotic heart disease of native coronary artery without angina pectoris; Z95.1 Presence of aortocoronary bypass graft; I48.91 Unspecified atrial fibrillation; Z79.01 Long term (current) use of anticoagulants
CPT/HCPCS: 99284; 80053; 81003; 81015; 83690; 84484; 85025; 85730; 87077; 87086; 93005